=== PATIENT | female | born 1950 | race Caucasian/White ===

== ENCOUNTER 2020-08-14 09:39 | Outpatient (REF) | payer MEDICARE, SELFPAY ==
[2020-08-14 10:26] LABS: MANUAL DIFF FLAG NO
[2020-08-14 10:31] LABS: Basophils Absolute Auto 0.1 X10*3/uL (0.0-0.2); Basophils Percent Auto 0.9 % (0-2); Eosinophils Absolute Auto 0.1 X10*3/uL (0.0-0.4); Eosinophils Percent Auto 1.8 % (0-4); Hematocrit 41.5 % (37-47); Hemoglobin 13.4 g/dl (12.0-16.0); Imm Gran Abs Auto 0.03 X10*3/uL (0.00-0.03); Imm Gran Pct Auto 0.4 % (0.0-0.4); Lymphocytes Absolute Auto 1.9 X10*3/uL (1.2-4.9); Lymphocytes Percent Auto 24.5 % (20-40); Mean Corpuscular HGB Conc 32.3 g/dl (31.0-35.0); Mean Corpuscular Hemoglobin 28.6 pg (27.0-33.0); Mean Corpuscular Volume 88.7 fL (80-98); Mean Platelet Volume 10.2 fL (9.4-12.3); Monocytes Absolute Auto 0.6 X10*3/uL (0.1-1.2); Monocytes Percent Auto 8.2 % (2-11); Neutrophils Absolute Auto 4.9 X10*3/uL (2.0-8.3); Neutrophils Percent Auto 64.2 % (45-73); Platelet Count 275 X10*3/uL (160-400); Red Blood Count 4.68 X10*6/uL (4.20-5.50); Red Cell Distribution Width 13.4 % (11.0-16.0); White Blood Count 7.7 X10*3/uL (4.8-10.8)
[2020-08-14 10:53] LABS: Alanine Aminotransferase 16 U/L (0-31); Albumin Level 4.1 g/dL (3.5-5.0); Alkaline Phosphatase 86 U/L (39-117); Anion Gap 11 (12-20); Aspartate Amino Transferase 15 U/L (5-31); Bilirubin Total 0.7 mg/dL (0.0-1.0); Blood Urea Nitrogen 12 mg/dL (9-16); Calcium 9.1 mg/dL (8.4-10.2); Carbon Dioxide 31 mmol/L (22-29); Chloride 105 mmol/L (96-108); Cholesterol 196 mg/dL; Estimated Glomerular Filt Rate 58; Glucose Fasting 107 mg/dL (60-99); HDL Cholesterol 41 mg/dL; LDL Cholesterol Calculated 118 mg/dl; Potassium 3.7 mmol/l (3.3-5.1); Sodium 143 mmol/L (135-145); Total Protein 6.7 g/dL (6.5-8.0); Triglycerides 189 mg/dL
[2020-08-14 11:18] LABS: Thyroid Stimulating Hormone 8.69 mIU/mL (0.32-4.0); Vitamin D 25-OH Total 27.8 ng/mL (>30)
[2020-08-14 11:35] LABS: Folate 4.6 ng/mL (> or = 4.0); T4 Thyroxine 9.1 ug/dL (4.5-12.0); Vitamin B12 319 pg/mL (200-900)
== END 2020-08-14 09:40 | disposition home or self-care (01) ==
LOC: HO.10HDL 09:39
PROVIDERS: Visit Provider Internal Medicine
DX: E66.9 Obesity, unspecified (principal); Z00.00 Encounter for general adult medical examination without abnormal findings; E78.00 Pure hypercholesterolemia, unspecified; E03.9 Hypothyroidism, unspecified; I10 Essential (primary) hypertension
CPT/HCPCS: 36415; 80053; 80061; 82306; 82607; 82746; 84436; 84443; 85025

== ENCOUNTER 2020-08-15 06:24 | Day surgery (SDC) | payer MEDICARE, SELFPAY ==
[2020-08-09 15:08] VITALS: BMI 76.5
--- NOTE | 2020-08-14 10:43 | P.CONAN_ITS ---
Documented by User: Jami Henriquez 08/14/20 10:45 HPI - Anesthesia Eval Consult details Narrative: 70yo F for Colonoscopy PMFSH Past Medical History Medical History Arthritis Back pain Elevated cholesterol HTN (hypertension) Hypothyroid Increased BMI Thyroid disease Surgical History Surgical History H/O colonoscopy History of bunionectomy History of carpal tunnel release Hx laparoscopic cholecystectomy Hx of shoulder surgery Hx of tubal ligation Social History Social History Alcohol intake: current Alcohol intake frequency: holidays/special occasions only Alcohol type: wine Smoking Status: Former smoker Tobacco Type: Cigarette Smoked in Last 30 Days: No Smoking Quit Date: age 20 Use of substances other than those prescribed or required for medical reasons: No Advance Directives Information Provided: No Recently lost weight without trying: No Meds Allergies Allergy/AdvReac Type Severity Reaction Status Date / Time shellfish derived Allergy Severe HIVES Unverified 06/28/20 15:36 [SHELLFISH DERIVED] Neosporin Allergy Intermediate Rash Unverified 08/09/20 15:24 coffee (Coffea arabica) AdvReac Intermediate Hives Verified 08/15/20 07:13 Home Medications Medication Instructions Recorded Confirmed Type cholecalciferol (vitamin D3) 25 mcg PO DAILY 08/09/20 08/09/20 History [Vitamin D3] hydrochlorothiazide 12.5 mg PO DAILY 08/09/20 08/09/20 History ibuprofen 400 mg PO Q6H PRN 08/09/20 08/09/20 History levothyroxine [Synthroid] 150 mcg PO DAILY 08/09/20 08/09/20 History rosuvastatin [Crestor] 10 mg PO BEDTIME 08/09/20 08/09/20 History Exam Exam Date and Time: August 14, 2020 1043 Height,Weight and Vital Signs: Height 5 ft 6 in Weight 215 kg Pertinent Lab Results Pertinent Lab Results: Laboratory Tests 08/14/20 09:32 WBC 7.7 Hgb 13.4 Hct 41.5 Plt Count 275 Assessment and Plan Assessment Anesthesia Assessment: Chart Reviewed Documented by User: Vanessa Peace 08/15/20 07:25 [facility] Past Medical History Medical History Arthritis Back pain Elevated cholesterol HTN (hypertension) Hypothyroid Increased BMI Thyroid disease Family History Family history of problems with anesthesia: No Surgical History Surgical History H/O colonoscopy History of bunionectomy History of carpal tunnel release Hx laparoscopic cholecystectomy Hx of shoulder surgery Hx of tubal ligation History of Problems with Anesthesia: No Social History Social History Alcohol intake: current Alcohol intake frequency: holidays/special occasions only Alcohol type: wine Smoking Status: Former smoker Tobacco Type: Cigarette Smoked in Last 30 Days: No Smoking Quit Date: age 20 Use of substances other than those prescribed or required for medical reasons: No Advance Directives Information Provided: No Recently lost weight without trying: No Meds Allergies Allergy/AdvReac Type Severity Reaction Status Date / Time shellfish derived Allergy Severe HIVES Unverified 06/28/20 15:36 [SHELLFISH DERIVED] Neosporin Allergy Intermediate Rash Unverified 08/09/20 15:24 coffee (Coffea arabica) AdvReac Intermediate Hives Verified 08/15/20 07:13 Home Medications Medication Instructions Recorded Confirmed Type cholecalciferol (vitamin D3) 25 mcg PO DAILY 08/09/20 08/09/20 History [Vitamin D3] hydrochlorothiazide 12.5 mg PO DAILY 08/09/20 08/09/20 History ibuprofen 400 mg PO Q6H PRN 08/09/20 08/09/20 History levothyroxine [Synthroid] 150 mcg PO DAILY 08/09/20 08/09/20 History rosuvastatin [Crestor] 10 mg PO BEDTIME 08/09/20 08/09/20 History Exam Height,Weight and Vital Signs: Vital Signs Temp Pulse Resp BP Pulse Ox 08/15/20 07:09 97.4 F 89 16 129/79 96 Airway Mallampati Class: II TM Dist: >3cm Neck ROM: Limited (Cervical disc problems. Numbness, weakness upper extremities. Also CTS.) Loose/Missing/Broken Teeth: No (Caps top front- intact) Heart: RRR Lungs: CTAB Assessment and Plan Assessment Anesthesia Assessment: Anesthesia Plan Discussed and Chart Reviewed Final Anesthetic Review NPO: Yes ASA Class: II Final Preanesthetic Review: No Changes in Pt Med Stat, Meds/Allgs Chart Reviewed, Consent Obtained/Reviewed and Anes Risks/Benef Reviewed Patient Risk: Low Procedure Risk: Low Anesthetic Plan Anesthetic Plan: MAC: Disposition: Standard PACU
[2020-08-15 07:09] VITALS: BP 129/79; PULSE 89; RESP 16; TEMP 36.3; O2SAT 96
[2020-08-15 07:16] VITALS: BMI 34.7
[2020-08-15 08:25] VITALS: BP 143/78; PULSE 80; RESP 20; TEMP 36.3; O2SAT 98
--- NOTE | 2020-08-15 08:28 | PM.OP ---
Brief Operative Note Date of procedure: 08/15/20 Pre-op diagnosis: Screening Post-op diagnosis: other (Diverticulosis, Int/Ext Hemorrhoids) Procedure: Colonoscopy to cecum Surgeon: Hollis Pinzon Anesthesia: MAC Estimated blood loss (mL): 0 Pathology: none sent Condition: stable Disposition: PACU
[2020-08-15 08:40] VITALS: BP 146/81; PULSE 74; RESP 16; TEMP 36.6; O2SAT 96
--- NOTE | 2020-08-15 08:43 | OP_ITS ---
SURGEON: Hollis Pinzon MD INDICATIONS: The patient presents for evaluation of colorectal cancer screening and personal history of tubular adenoma of the colon. Full consent has been obtained from her for this, including risks of bleeding and perforation. PREOPERATIVE DIAGNOSIS: POSTOPERATIVE DIAGNOSIS: PROCEDURE PERFORMED: Colonoscopy to cecum. ESTIMATED BLOOD LOSS: COMPLICATIONS: ANESTHESIA: Monitored anesthesia care. ASSISTANTS: SPECIMENS: PREOPERATIVE DIAGNOSES: Colorectal cancer screening and personal history of tubular adenoma of the colon. POSTOPERATIVE DIAGNOSES: Colorectal cancer screening, personal history of tubular adenoma of the colon, diverticulosis, internal and external hemorrhoids. DESCRIPTION OF PROCEDURE: The patient was placed in the left lateral decubitus position. The digital rectal exam revealed no abnormalities. The Olympus video pediatric colonoscope was entered into the rectum and advanced to the cecum with the assistance of abdominal wall pressure. Once in the cecum, I did identify normal-appearing cecal pouch with appendiceal orifice and a normal-appearing ileocecal valve. The entire cecum was well visualized and appeared normal. There was transillumination of light deep in the right lower quadrant. The scope was slowly withdrawn assessing all mucosal surfaces carefully. Preparation was excellent. I did not visualize any sign of polyps, colitis, nor angiodysplasia. There was a mild amount of sigmoid diverticulosis. In the rectum, scope was retroflexed visualizing internal hemorrhoids, but no other pathology. The rectal mucosa appeared normal. The scope was straightened out and withdrawn from the patient. She tolerated the procedure well and was returned to recovery area in stable condition. IMPRESSION: 1. Sigmoid diverticulosis. 2. Internal and external hemorrhoids. PLAN: Given her previous history of an adenoma, I would recommend a followup colonoscopy in 5 years for further screening and surveillance. She will otherwise see me on a p.r.n. basis. MD ELISHA Rasmussen/BRANDON / [id number]
--- NOTE | 2020-08-15 09:03 | HO.POSTANES ---
Post Anesthesia Evaluation Post Anesthesia Evaluation Vital Signs: Vital Signs Temp Pulse Resp BP Pulse Ox 08/15/20 08:40 98 F 74 16 146/81 H 96 08/15/20 08:25 97.3 F 80 20 143/78 H 98 08/15/20 07:09 97.4 F 89 16 129/79 96 Anesthesia: Monitored Mental Status: Awake Pain Control: Satisfactory Nausea/Vomiting: None Hydration: Adequate Anesthesia-Related Issues: No Anes. Related Issues
== END 2020-08-15 09:12 | disposition home or self-care (01) ==
PROVIDERS: PCP Internal Medicine; Visit Provider Internal Medicine
PROC: 0DJD8ZZ Inspection of Lower Intestinal Tract, Via Natural or Artificial Opening Endoscopic (ICD-10-PCS; CPT 45378; principal; 2020-08-15 07:30)
DX: Z12.11 Encounter for screening for malignant neoplasm of colon (principal); Z86.010 Personal history of colon polyps; K57.30 Diverticulosis of large intestine without perforation or abscess without bleeding; K64.8 Other hemorrhoids; K64.4 Residual hemorrhoidal skin tags; I10 Essential (primary) hypertension; E03.9 Hypothyroidism, unspecified; E78.00 Pure hypercholesterolemia, unspecified; Z79.899 Other long term (current) drug therapy; Z90.49 Acquired absence of other specified parts of digestive tract; Z87.891 Personal history of nicotine dependence
CPT/HCPCS: G0105

== ENCOUNTER 2020-09-12 10:23 | Outpatient (REF) | payer MEDICARE, SELFPAY ==
--- NOTE | 2020-09-12 10:26 | MM_ITS ---
EXAMINATION: MM SCREENING DIGITAL BREAST TOMOSYNTHESIS, BILATERAL CLINICAL INFORMATION: Screening. Asymptomatic. The lifetime risk of breast cancer based on the Tyrer-Cuzick Model is 10%. COMPARISON: Mammography: 09/07/2019, 07/27/2018, 06/30/2017 TECHNIQUE: Digital breast tomosynthesis is performed in both the craniocaudal and mediolateral oblique views along with computer-aided detection (CAD). Synthesized 2D images are generated from the tomosynthesis. Additional right MLO view is provided. FINDINGS: There are scattered areas of fibroglandular density (ACR BI-RADS breast composition Category b). There are no significant masses, abnormal calcifications, or other abnormalities. No significant changes from prior studies. MM/MM tomosynthesis screening BI IMPRESSION: No mammographic evidence of malignancy. ASSESSMENT: BI-RADS 1: Negative RECOMMENDATION: Routine annual mammography screening. This patient's information was entered into a reminder system with a target due date for their next mammogram.
== END 2020-09-12 10:24 | disposition home or self-care (01) ==
LOC: HO.MAMMO 10:23
PROVIDERS: PCP Internal Medicine; Visit Provider Internal Medicine
DX: Z12.31 Encounter for screening mammogram for malignant neoplasm of breast (principal)
CPT/HCPCS: 77063; 77067

== ENCOUNTER 2020-12-11 09:16 | Outpatient (REF) | payer MEDICARE, SELFPAY ==
--- NOTE | ~2020-12-11 | XR_ITS ---
EXAMINATION: XR SHOULDER, LEFT CLINICAL INFORMATION: Pain left shoulder. COMPARISON: None. TECHNIQUE: AP external rotation, Grashey, scapular Y, and axillary views of the left shoulder. FINDINGS: There are hypertrophic bony changes along the lateral humeral head and the lateral acromion consistent with arthritic spurring. Mild inferior AC joint spurring is seen as well. There are no loose bodies or bony erosive changes. No acute fracture or dislocation. The soft tissues are normal. XR/XR shoulder LT min 2V IMPRESSION: Degenerative arthritic changes left AC joint and along the lateral humeral head. No acute fracture or dislocation seen.
[2020-12-11 10:15] LABS: Alanine Aminotransferase 19 U/L (0-31); Alkaline Phosphatase 80 U/L (39-117); Anion Gap 12 (12-20); Aspartate Amino Transferase 15 U/L (5-31); Bilirubin Total 0.6 mg/dL (0.0-1.0); Blood Urea Nitrogen 13 mg/dL (9-16); Calcium 9.3 mg/dL (8.4-10.2); Carbon Dioxide 30 mmol/L (22-29); Chloride 106 mmol/L (96-108); Estimated Glomerular Filt Rate 56; Glucose Random 110 mg/dL (60-115); Potassium 3.7 mmol/L (3.3-5.1); Sodium 144 mmol/L (135-145); Total Protein 6.5 g/dL (6.5-8.0)
[2020-12-11 10:34] LABS: Estimated Average Glucose 117 mg/dL; Hemoglobin A1c % 5.7 %
[2020-12-11 10:36] LABS: Free T4 (Free Thyroxine) 1.23 ng/dL (0.71-1.85); Thyroid Stimulating Hormone 0.48 uIU/mL (0.32-4.0)
== END 2020-12-11 09:17 | disposition home or self-care (01) ==
LOC: HO.LAB 09:16
PROVIDERS: PCP Internal Medicine; Visit Provider Internal Medicine
DX: M25.512 Pain in left shoulder (principal); R73.01 Impaired fasting glucose; E03.9 Hypothyroidism, unspecified
CPT/HCPCS: 36415; 73030; 80053; 83036; 84439; 84443

== ENCOUNTER 2021-02-06 10:23 | Outpatient (REF) | payer MEDICARE, SELFPAY ==
--- NOTE | 2021-02-06 10:26 | EMG_ITS ---
This is a 70-year-old woman, who has had a right carpal tunnel release done more than 10 years ago, now comes in with pain, numbness, and tingling predominantly in the left hand and slight pain in the right hand. MEDICATIONS: List of medications is not known. PHYSICAL EXAMINATION: On examination, she is alert and oriented with normal intellectual functions. Her cranial nerves II through XII are normal. Muscle tone and strength are normal in all 4 extremities. Deep tendon reflexes symmetrical. There is no Tinel or Phalen sign. IMPRESSION: Carpal tunnel syndrome. Nerve conduction EMG study: Early carpal tunnel syndrome on the left. Normal nerve conduction on the right. Normal EMG of the left C5-T1 innervated muscles. MD ANNE Gonzales/BRANDON / [id number]
== END 2021-02-06 10:24 | disposition home or self-care (01) ==
LOC: HO.NEURO 10:23
PROVIDERS: Visit Provider Internal Medicine
DX: R20.0 Anesthesia of skin (principal)
CPT/HCPCS: 95885; 95913

== ENCOUNTER 2021-07-23 09:43 | Outpatient (REF) | payer MEDICARE, SELFPAY ==
--- NOTE | ~2021-07-23 | CT_ITS ---
EXAMINATION: CT HEAD WITHOUT CONTRAST CLINICAL INFORMATION: Headache COMPARISON: None TECHNIQUE: Contiguous axial imaging was performed from the skull base to vertex without intravenous administration of contrast. This CT examination was performed using dose optimization techniques as appropriate, variously including the following: *Automated exposure control *Adjustment of mA and/or kV according to patient size (this includes techniques or standardized protocols for targeted exams where dose is matched to indication/reason for exam; i.e. extremities or head) *Use of iterative reconstruction technique DLP: 693 mGy-cm FINDINGS: There is no evidence of acute intracranial hemorrhage or territorial infarction. No abnormal mass effect or midline shift is seen. North to white matter differentiation is well preserved. No extra-axial fluid collections are identified. The ventricles are normal in size. There is no abnormal attenuation within the brain parenchyma. The osseous structures and soft tissues are normal. The mastoid air cells and visualized portions of the paranasal sinuses are well aerated. CT/CT head/brain wo con IMPRESSION: No acute intracranial pathology.
[2021-07-23 11:06] LABS: Basophils Percent Auto 0.5 % (0-2); Eosinophils Absolute Auto 0.2 X10*3/uL (0.0-0.4); Hematocrit 38.2 % (37-47); Hemoglobin 12.2 g/dl (12.0-16.0); Imm Gran Abs Auto 0.04 X10*3/uL (0.00-0.03); Imm Gran Pct Auto 0.5 % (0.0-0.4); Lymphocytes Percent Auto 22.6 % (20-40); MANUAL DIFF FLAG NO; Mean Corpuscular HGB Conc 31.9 g/dl (31.0-35.0); Mean Corpuscular Hemoglobin 28.6 pg (27.0-33.0); Mean Corpuscular Volume 89.5 fL (80-98); Mean Platelet Volume 10.5 fL (9.4-12.3); Monocytes Absolute Auto 0.8 X10*3/uL (0.1-1.2); Monocytes Percent Auto 8.8 % (2-11); Neutrophils Absolute Auto 5.7 X10*3/uL (2.0-8.3); Neutrophils Percent Auto 65.6 % (45-73); Platelet Count 252 X10*3/uL (160-400); Red Blood Count 4.27 X10*6/uL (4.20-5.50); Red Cell Distribution Width 13.6 % (11.0-16.0); White Blood Count 8.7 X10*3/uL (4.8-10.8)
[2021-07-23 11:36] LABS: Estimated Average Glucose 117 mg/dL; Hemoglobin A1c % 5.7 %
[2021-07-23 11:40] LABS: Alanine Aminotransferase 25 U/L (0-31); Alkaline Phosphatase 82 U/L (39-117); Anion Gap 12 (12-20); Aspartate Amino Transferase 20 U/L (5-31); Bilirubin Total 0.7 mg/dL (0.0-1.0); Blood Urea Nitrogen 14 mg/dL (9-16); Calcium 9.6 mg/dL (8.4-10.2); Carbon Dioxide 24 mmol/L (22-29); Chloride 109 mmol/L (96-108); Cholesterol 200 mg/dL; Estimated Glomerular Filt Rate 58; Glucose Random 112 mg/dL (60-115); HDL Cholesterol 40 mg/dL; LDL Cholesterol Calculated 114 mg/dl; Potassium 4.2 mmol/L (3.3-5.1); Sodium 141 mmol/L (135-145); Total Protein 6.4 g/dL (6.5-8.0); Triglycerides 234 mg/dL
[2021-07-23 12:00] LABS: Thyroid Stimulating Hormone 0.59 uIU/mL (0.32-4.0); Vitamin D 25-OH Total 20.8 ng/mL (>30)
[2021-07-23 14:13] LABS: Folate 6.1 ng/mL (> or = 4.0); Vitamin B12 213 pg/mL (200-900)
== END 2021-07-23 09:44 | disposition home or self-care (01) ==
LOC: HO.CT 09:43
PROVIDERS: PCP Internal Medicine; Visit Provider Internal Medicine
DX: G89.29 Other chronic pain (principal); R51.9 Headache, unspecified; R73.01 Impaired fasting glucose; E78.00 Pure hypercholesterolemia, unspecified; I10 Essential (primary) hypertension; E03.9 Hypothyroidism, unspecified
CPT/HCPCS: 36415; 70450; 80053; 80061; 82306; 82607; 82746; 83036; 84439; 84443; 85025

== ENCOUNTER 2021-09-25 11:32 | Outpatient (REF) | payer MEDICARE, SELFPAY ==
--- NOTE | ~2021-09-25 | MM_ITS ---
EXAMINATION: MM SCREENING DIGITAL BREAST TOMOSYNTHESIS, BILATERAL CLINICAL INFORMATION: Screening. Asymptomatic. The lifetime risk of breast cancer based on the Tyrer-Cuzick Model is 4%. COMPARISON: Mammography: 09/12/2020, 09/07/2019, 07/27/2018, 06/30/2017 TECHNIQUE: Digital breast tomosynthesis is performed in both the craniocaudal and mediolateral oblique views along with computer-aided detection (CAD). Synthesized 2D images are generated from the tomosynthesis. FINDINGS: There are scattered areas of fibroglandular density (ACR BI-RADS breast composition Category b). There are no significant masses, abnormal calcifications, or other abnormalities. Incidental intramammary node posterior upper outer right breast again seen. The axilla and skin contours are unremarkable. No significant changes. MM/MM tomosynthesis screening BI IMPRESSION: No mammographic evidence of malignancy. ASSESSMENT: BI-RADS 1: Negative RECOMMENDATION: Routine annual mammography screening. This patient's information was entered into a reminder system with a target due date for their next mammogram.
== END 2021-09-25 11:33 | disposition home or self-care (01) ==
LOC: HO.MAMMO 11:32
PROVIDERS: Visit Provider Internal Medicine
DX: Z12.31 Encounter for screening mammogram for malignant neoplasm of breast (principal)
CPT/HCPCS: 77063; 77067

== ENCOUNTER 2021-12-03 07:16 | Outpatient (REF) | payer MEDICARE, SELFPAY ==
--- NOTE | ~2021-12-03 | MR_ITS ---
MR LUMBAR SPINE WITHOUT IV CONTRAST CLINICAL INFORMATION: Low back pain. Radiculopathy. COMPARISON: None available. TECHNIQUE: MRI of the lumbar spine was obtained using routine sequences without contrast. FINDINGS: There are 5 nonrib-bearing lumbar-type vertebral bodies. There is grade 1 degenerative anterolisthesis of L5 on S1. Lumbar alignment is otherwise maintained. Vertebral body heights are preserved. There is moderate disc volume loss at L1-L2 and L2-L3. There is disc desiccation at all lumbar levels. There is no bone marrow edema. There are no acute fractures. Conus terminates at the L1-L2 level. There is a thickened fatty filum terminale at the L4 through sacral levels measuring up to 3 mm. L1-L2: Shallow right paracentral disc protrusion mildly narrows the central canal. No foraminal stenosis. L2-L3: There is a diffuse annular disc bulge exhibiting a dorsal annular fissure and there is moderate bilateral facet arthropathy and ligamentum flavum thickening. Findings in concert result in moderate central canal stenosis. Right lateral disc osteophyte protrusion compresses the extraforaminal right L2 nerve root. L3-L4: Diffuse annular disc bulge and severe bilateral facet arthropathy and ligamentum flavum thickening. Prominent dorsal epidural fat. Findings in concert result in severe central canal stenosis. L4-L5: There is a diffuse annular disc bulge and there is severe bilateral facet arthropathy and ligamentum flavum thickening. Epidural lipomatosis. Findings in concert result in moderate to severe thecal sac effacement and moderate bilateral foraminal stenosis with mild mass effect on the exiting L4 nerve roots bilaterally. L5-S1: There is grade 1 degenerative anterolisthesis. No central canal stenosis and no foraminal stenosis. MR/MR lumbar spine wo con IMPRESSION: - At L2-L3, multifactorial degenerative changes result in moderate central canal stenosis and a right lateral disc osteophyte protrusion compresses the extraforaminal right L2 nerve root. Dorsal annular fissure at this level. - At L3-L4, multifactorial degenerative changes and epidural lipomatosis result in severe central canal stenosis. Dorsal annular fissure at this level. - At L4-L5, multifactorial degenerative changes and epidural lipomatosis result in moderate to severe thecal sac effacement. There is moderate bilateral foraminal stenosis with mild mass effect on the exiting L4 nerve roots bilaterally at this level. - At L5-S1, there is grade 1 degenerative anterolisthesis in the setting of severe bilateral facet arthropathy. - There is a thickened fatty filum terminale at the L4 through sacral levels measuring up to 3 mm. Conus is normally positioned at the L1-L2 level.
== END 2021-12-03 07:17 | disposition home or self-care (01) ==
LOC: HO.MRI 07:16
PROVIDERS: Visit Provider Internal Medicine
DX: M54.16 Radiculopathy, lumbar region (principal)
CPT/HCPCS: 72148

== ENCOUNTER 2021-12-10 09:34 | Outpatient (REF) | payer MEDICARE, SELFPAY ==
--- NOTE | ~2021-12-10 | MM_ITS ---
EXAMINATION: BONE DENSITOMETRY CLINICAL INDICATION: Other specified disorders of bone density and structure. COMPARISON: Previous BD dated 06/30/2017 and baseline BD dated 07/18/2008. TECHNIQUE: Using a [employer] DXA System (software version: 13.1) manufactured by [email or web address], dual-energy x-ray absorptiometry was performed of the lumbar spine and left hip. The images are of good technical quality. Summary results are attached. FINDINGS: AP SPINE L1-L4: Current: BMD 1.374 g/cm2, Z-score 2.1, T-score 1.6, normal, 3.6% increase from previous, 14.2% increase from baseline (<5% change is not significant). Prior: BMD 1.326 g/cm2. Baseline: BMD 1.203 g/cm2. LEFT FEMUR, NECK: Current: BMD 0.784 g/cm2, Z-score -0.9, T-score -1.8, osteopenia. Prior: BMD 0.974 g/cm2. Baseline: BMD 1.006 g/cm2. LEFT FEMUR, TOTAL: Current: BMD 0.886 g/cm2, Z-score -0.4, T-score -1.0, normal, 15.2% decrease from previous, 13.1% decrease from baseline (<5% change is not significant). Prior: BMD 1.045 g/cm2. Baseline: BMD 1.020 g/cm2. IDENTIFIED RISK FACTORS: Menopause. HISTORY OF FRACTURE: None listed. MEDICATIONS: Vitamin D. MM/XR DEXA axial skeleton IMPRESSION: 1. DIAGNOSIS: Osteopenia based on the lowest T-score value of -1.8 in the femoral neck applying World Health Organization criteria. 2. 10-YEAR FRACTURE RISK PREDICTION, FRAX: Major osteoporotic fracture (clinical spine, forearm, hip or shoulder) 10.1%. Hip fracture 1.7%. 3. Treatment Recommendations: NOF guidelines recommend consideration for treatment in postmenopausal women and men age 50 and older presenting with the following: -A hip or vertebral (clinical or morphometric) fracture. -T-score less than or equal to -2.5 at the femoral neck or spine after appropriate evaluation to exclude secondary causes. -Low bone mass at the hip or spine and a 10-year fracture probability by FRAX of greater than or equal to 3% for hip fracture or greater than or equal to 20% for major osteoporotic fracture based on the [place] adapted WHO algorithm. 4. Other Recommendations: All treatment decisions require clinical judgment and consideration of individual patient factors, including patient preferences, comorbidities, previous drug use, risk factors not captured in the FRAX model (e.g. frailty, falls, vitamin D deficiency, increased bone turnover, interval significant decline in bone density) and possible under or overestimation of fracture risk by FRAX. Additional medical evaluation for secondary cause of low bone mineral density may be appropriate. FUTURE SCAN RECOMMENDATION: People with diagnosed cases of osteoporosis or at high risk for fracture should have regular bone mineral density tests. For patients eligible for Medicare, routine testing is allowed once every 2 years. The testing frequency can be increased to one year for patients who have rapidly progressing disease, those who are receiving or discontinuing medical therapy to restore bone mass, or have additional risk factors.
== END 2021-12-10 09:35 | disposition home or self-care (01) ==
LOC: HO.MAMMO 09:34
PROVIDERS: PCP Internal Medicine; Visit Provider Internal Medicine
DX: M85.80 Other specified disorders of bone density and structure, unspecified site (principal); Z78.0 Asymptomatic menopausal state; Z79.899 Other long term (current) drug therapy
CPT/HCPCS: 77080

== ENCOUNTER 2022-03-31 11:00 | Outpatient (RCR) | payer MEDICARE, SELFPAY ==
[2022-02-17 11:09] VITALS: BP 177/74; PULSE 78; O2SAT 96
== END 2022-03-31 13:05 | disposition home or self-care (01) ==
LOC: HO.PT 11:00
PROVIDERS: PCP Internal Medicine; Visit Provider Neurological Surgery
DX: M54.50 Low back pain, unspecified (principal)
CPT/HCPCS: 97110; 97140; 97162; 97530

== ENCOUNTER 2022-06-03 09:21 | Outpatient (REF) | payer MEDICARE, SELFPAY ==
[2022-06-03 10:01] LABS: MANUAL DIFF FLAG NO
[2022-06-03 10:53] LABS: Basophils Absolute Auto 0.1 X10*3/uL (0.0-0.2); Basophils Percent Auto 0.6 % (0-2); Eosinophils Absolute Auto 0.2 X10*3/uL (0.0-0.4); Eosinophils Percent Auto 2.2 % (0-4); Hematocrit 40.2 % (37.0-47.0); Hemoglobin 12.9 g/dl (12.0-16.0); Imm Gran Abs Auto 0.03 X10*3/uL (0.00-0.03); Imm Gran Pct Auto 0.4 % (0.0-0.4); Lymphocytes Absolute Auto 1.8 X10*3/uL (1.2-4.9); Lymphocytes Percent Auto 23.6 % (20-40); Mean Corpuscular HGB Conc 32.1 g/dl (31.0-35.0); Mean Corpuscular Volume 87.2 fL (80.0-98.0); Mean Platelet Volume 10.4 fL (9.4-12.3); Monocytes Absolute Auto 0.7 X10*3/uL (0.1-1.2); Neutrophils Percent Auto 64.2 % (45-73); Platelet Count 261 X10*3/uL (160-400); Red Blood Count 4.61 X10*6/uL (4.20-5.50); Red Cell Distribution Width 13.1 % (11.0-16.0); White Blood Count 7.8 X10*3/uL (4.8-10.8)
[2022-06-03 10:58] LABS: Estimated Average Glucose 120 mg/dL; Hemoglobin A1c % 5.8 %
[2022-06-03 11:23] LABS: Alanine Aminotransferase 18 U/L (0-31); Alkaline Phosphatase 90 U/L (39-117); Anion Gap 13 (12-20); Aspartate Amino Transferase 15 U/L (5-31); Bilirubin Total 0.7 mg/dL (0.0-1.0); Blood Urea Nitrogen 12 mg/dL (9-16); Calcium 9.6 mg/dL (8.4-10.2); Carbon Dioxide 27 mmol/L (22-29); Chloride 107 mmol/L (96-108); Cholesterol 178 mg/dL; Estimated Glomerular Filt Rate > 60; Glucose Random 112 mg/dL (60-115); HDL Cholesterol 39 mg/dL; LDL Cholesterol Calculated 96 mg/dl; Potassium 4.4 mmol/L (3.3-5.1); Sodium 143 mmol/L (135-145); Total Protein 6.6 g/dL (6.5-8.0); Triglycerides 219 mg/dL
[2022-06-03 11:33] LABS: Free T4 (Free Thyroxine) 1.48 ng/dL (0.71-1.85); Thyroid Stimulating Hormone 0.05 uIU/mL (0.32-4.0); Vitamin D 25-OH Total 20.6 ng/mL (>30)
[2022-06-03 11:46] LABS: Folate 10.1 ng/mL (> or = 4.0); Vitamin B12 237 pg/mL (200-900)
== END 2022-06-03 09:22 | disposition home or self-care (01) ==
LOC: HO.LAB 09:21
PROVIDERS: PCP Internal Medicine; Visit Provider Internal Medicine
DX: E78.00 Pure hypercholesterolemia, unspecified (principal)
CPT/HCPCS: 36415; 80053; 80061; 82306; 82607; 82746; 83036; 84439; 84443; 85025

== ENCOUNTER → 2022-07-22 09:54 | Outpatient (BNVA) | payer MEDICARE, SELFPAY | PROVIDERS: PCP Internal Medicine; Visit Provider Orthopaedic Surgery | DX: M65.311 Trigger thumb, right thumb (principal); G56.02 Carpal tunnel syndrome, left upper limb | CPT/HCPCS: 99202 ==

== ENCOUNTER 2022-08-29 11:27 | Outpatient (REF) | payer MEDICARE, SELFPAY ==
[2022-08-29 12:56] LABS: Estimated Average Glucose 120 mg/dL; Hemoglobin A1c % 5.8 %
[2022-08-29 13:56] LABS: Alanine Aminotransferase 18 U/L (0-31); Albumin Level 3.9 g/dL (3.5-5.0); Alkaline Phosphatase 95 U/L (39-117); Anion Gap 11 (12-20); Aspartate Amino Transferase 16 U/L (5-31); Bilirubin Total 0.5 mg/dL (0.0-1.0); Blood Urea Nitrogen 11 mg/dL (9-16); Carbon Dioxide 28 mmol/L (22-29); Chloride 108 mmol/L (96-108); Estimated Glomerular Filt Rate 56; Free T4 (Free Thyroxine) 1.35 ng/dL (0.71-1.85); Glucose Random 105 mg/dL (60-115); Potassium 4.3 mmol/L (3.3-5.1); Sodium 143 mmol/L (135-145); Thyroid Stimulating Hormone 0.01 uIU/mL (0.32-4.0); Total Protein 6.4 g/dL (6.5-8.0)
== END 2022-08-29 11:28 | disposition home or self-care (01) ==
LOC: HO.LAB 11:27
PROVIDERS: PCP Internal Medicine; Visit Provider Internal Medicine
DX: E03.9 Hypothyroidism, unspecified (principal); R73.01 Impaired fasting glucose; I10 Essential (primary) hypertension
CPT/HCPCS: 36415; 80053; 83036; 84439; 84443

== ENCOUNTER 2022-09-29 09:55 | Day surgery (SDC) | payer MEDICARE, SELFPAY ==
[2022-09-29 10:05] VITALS: BMI 34.2
--- NOTE | 2022-09-29 11:27 | MHC.SHP ---
Pre-Procedural Eval Section A Date of Service: 09/29/22 The patient is an INPATIENT: No Changes since office visit: No Cold of Flu in the past 2 weeks, No New Medical Problems, No Changes in Medication and No Patient answered all questions The History & Physical has been completed within 30 days and I have reviewed it.: Yes Section B Chief Complaint: Trigger thumb, right thumb Allergies: Allergies Allergy/AdvReac Type Severity Reaction Status Date / Time shellfish derived Allergy Severe HIVES Verified 07/22/22 09:59 [SHELLFISH DERIVED] Neosporin Allergy Intermediate Rash Verified 07/22/22 09:59 adhesive Allergy Unknown Rash Verified 07/22/22 09:59 coffee (Coffea arabica) AdvReac Intermediate Hives Verified 07/22/22 09:59 Plan I have reviewed the history and physical and performed a pertinent physical examination on my patient. No changes have occurred unless specified. Time Spent With Patient Time: Total time managing care of this patient today ____ minutes.
--- NOTE | 2022-09-29 11:28 | W.PM.OPN ---
Operative Note Operative Note Date of Service: 09/29/22 Narrative: Operative Note Preop diagnosis: 1. Right thumb Trigger finger Postop diagnosis: 1. Right thumb Trigger finger Procedure: 1. Right thumb A1 zach release Surgeon: Silke Obregon MD Anesthesia: local block using 1% lidocaine with epinephrine Findings: No locking or catching after A1 zach release EBL: Less than 5 mL Tourniquet time: None Specimens: None Complications: None Disposition: Brought to recovery room in stable condition Plan: Follow-up for 10-14 days for wound check and suture removal Indications: The patient is a 72 years old, with a right thumb trigger finger that has been unresponsive to nonoperative management. The risks and benefits of operative treatment including but not limited to risk of damage to blood vessels, nerves, tendons, infection, persistent pain, persistent symptoms, recurrence or possible need for additional surgery were discussed with the patient and the patient wishes to proceed with surgery. Procedure: Once consent was obtained a local block was performed in the preop area using a combination of 1% lidocaine with epinephrine. The patient was then brought back to the operating suite and placed on the operative table in supine position. A tourniquet was applied to the proximal aspect of the right upper extremity and the limb was prepped and draped in a standard surgical fashion. Once assured that we had a good block, a 1.5 cm oblique incision was made centered over the A1 zach of the right thumb . The incision was made through the skin to the subcutaneous tissues using a #15 blade. Careful dissection was made down to the level of the A1 zach using tenotomy scissors, with care being taken to protect the nearby neurovascular structures. A longitudinal incision was made in the A1 zach 1st using a #15 blade, then using tenotomy scissors under direct visualization. The A1 zach was noted to be thickened. Following our A1 zach release, we no longer saw any locking or catching of the digit with flexion and extension. Once satisfied with our A1 zach release the wound was copiously irrigated with normal saline and hemostasis was obtained with a brief period of local pressure. The skin edges were reapproximated with some 5.0 nylon suture material and a sterile dressing was applied. The patient appears to have tolerated the procedure well and with no complications. All digits were well vascularized at the conclusion of the case.
[2022-09-29 11:55] VITALS: BP 139/63; PULSE 76; RESP 16; TEMP 36.2; O2SAT 96
== END 2022-09-29 12:11 | disposition home or self-care (01) ==
PROVIDERS: PCP Internal Medicine; Visit Provider Orthopaedic Surgery
PROC: (CPT 26055; principal; 2022-09-29 11:20)
DX: M65.311 Trigger thumb, right thumb (principal); M25.641 Stiffness of right hand, not elsewhere classified; M79.644 Pain in right finger(s); M19.90 Unspecified osteoarthritis, unspecified site; I10 Essential (primary) hypertension; I73.9 Peripheral vascular disease, unspecified; E55.9 Vitamin D deficiency, unspecified; E66.9 Obesity, unspecified; Z68.34 Body mass index [BMI] 34.0-34.9, adult; Z79.1 Long term (current) use of non-steroidal anti-inflammatories (NSAID); Z79.899 Other long term (current) drug therapy; Z88.1 Allergy status to other antibiotic agents; Z91.040 Latex allergy status; Z87.891 Personal history of nicotine dependence
CPT/HCPCS: 26055; J0171; J2795

== ENCOUNTER 2022-10-02 10:36 | Outpatient (REF) | payer MEDICARE, SELFPAY | END 2022-10-02 10:37 | disposition home or self-care (01) | LOC: HO.MAMMO 10:36 | PROVIDERS: PCP Internal Medicine; Visit Provider Internal Medicine | DX: Z12.31 Encounter for screening mammogram for malignant neoplasm of breast (principal) | CPT/HCPCS: 77063; 77067 ==

== ENCOUNTER → 2022-10-14 09:42 | Outpatient (BNVA) | payer MEDICARE, SELFPAY | PROVIDERS: PCP Internal Medicine; Visit Provider Orthopaedic Surgery | DX: Z13.89 Encounter for screening for other disorder (principal) ==

== ENCOUNTER 2022-10-15 12:19 | Outpatient (REF) | payer MEDICARE, SELFPAY ==
[2022-10-15 14:05] LABS: Free T4 (Free Thyroxine) 1.02 ng/dL (0.71-1.85); Thyroid Stimulating Hormone 0.29 uIU/mL (0.32-4.0)
== END 2022-10-15 12:20 | disposition home or self-care (01) ==
LOC: HO.LAB 12:19
PROVIDERS: PCP Internal Medicine; Visit Provider Internal Medicine
DX: E03.9 Hypothyroidism, unspecified (principal)
CPT/HCPCS: 36415; 84439; 84443

== ENCOUNTER 2022-11-26 14:34 | Outpatient (REF) | payer MEDICARE, SELFPAY ==
--- NOTE | ~2022-11-26 | XR_ITS ---
EXAMINATION: XR LUMBOSACRAL SPINE WITH OBLIQUES CLINICAL INFORMATION: Status post L3/L4 and L4/L5 decompression COMPARISON: None TECHNIQUE: 7 views of the lumbar spine FINDINGS: 5 lumbar type vertebral bodies are present. Vertebral body heights and alignment are preserved. No subluxation between flexion and extension. Right upper quadrant cholecystectomy clips are noted. XR/XR lumbar spine 6V w bending IMPRESSION: Unremarkable examination. No subluxation between flexion and extension.
== END 2022-11-26 14:35 | disposition home or self-care (01) ==
LOC: HO.XRAY 14:34
PROVIDERS: PCP Internal Medicine; Visit Provider Physician Assistant
DX: M54.50 Low back pain, unspecified (principal)
CPT/HCPCS: 72114

== ENCOUNTER 2023-01-12 10:00 | Outpatient (RCR) | payer MEDICARE, SELFPAY ==
[2023-01-02 11:10] VITALS: BP 148/66; PULSE 70
== END 2023-02-06 10:39 | disposition home or self-care (01) ==
LOC: HO.PT 10:00
PROVIDERS: PCP Internal Medicine; Visit Provider Neurological Surgery
DX: M54.59 Other low back pain (principal)
CPT/HCPCS: 97110; 97140; 97161

== ENCOUNTER 2023-01-14 13:23 | Outpatient (REF) | payer MEDICARE, SELFPAY ==
--- NOTE | ~2023-01-14 | FL_ITS ---
PROCEDURE: XR FL WITH IMAGES SACROILIAC JOINT, LEFT CT FL-GUIDED SACROILIAC JOINT STEROID INJECTION, LEFT CLINICAL INFORMATION: Left sacroiliac joint pain. COMPARISON: Lumbar spine study of 11/26/[address] lumbar spine of 10/02/2016. TECHNIQUE: Fluoroscopy Supervised By: Dr. Robertson. Fluoroscopy Time: 6.7 minutes. DAP: 3693 cGycm2. Images: 4. This CT examination was performed using dose optimization techniques as appropriate, variously including the following: *Automated exposure control. *Adjustment of mA and/or kV according to patient size (this includes techniques or standardized protocols for targeted exams where dose is matched to indication/reason for exam; i.e. extremities or head). *Use of iterative reconstruction technique. CT DLP: 377 mGy-cm FINDINGS: Informed consent was obtained from the patient prior to the procedure. During this process, the procedure and potential alternatives were explained, along with the intended outcome and benefits. The risks of the procedure, as well as the risk of not doing the procedure, were discussed. The patient was given the opportunity to ask questions regarding the procedure and appeared competent to make medical decisions. A signed consent form which documents this discussion was placed in the medical record. Using sterile technique and fluoroscopic guidance with the fluoroscopy tube angled to open the left sacroiliac joint, a 22-gauge spinal needle was then directed down onto the inferior sacroiliac joint with ventrally injection showing a small amount of contrast within the sacroiliac joint. However, only approximately half milliliter of mixture of 2 mL of bupivacaine mixed with 80 mg of Depo-Medrol could be administered before access to the joint was lost. The patient was then brought to CT fluoroscopy were a 22-gauge spinal needle was directed into the left sacroiliac joint and a mixture of 2 mL of a bupivacaine with 80 mg of Depo-Medrol was administered. Patient tolerated the procedure without difficulty and stated that her usual sacroiliac joint pain was no longer present while doing maneuvers which would regularly cause her pain. FL/FL guidance in treatment room IMPRESSION: Successful left sacroiliac joint injection with bupivacaine and steroids as described.
[2023-01-14] MEDS: methylPREDNISolone acetate 80 MG VIAL INTRAARTIC (17:04)
[2023-01-14] MEDS: Lidocaine HCl 1 % 20 ML VIAL SUBCUT (17:04)
[2023-01-14] MEDS: BUPivacaine MPF 0.25 % 30 ML VIAL EPIDURAL (17:05)
== END 2023-01-14 13:24 | disposition home or self-care (01) ==
LOC: HO.XRAY 13:23
PROVIDERS: PCP Internal Medicine; Visit Provider Neurological Surgery
DX: M53.3 Sacrococcygeal disorders, not elsewhere classified (principal)
CPT/HCPCS: 27096; J1040; Q9967

== ENCOUNTER 2023-01-26 10:46 | Outpatient (REF) | payer MEDICARE, SELFPAY ==
[2023-01-26 12:14] LABS: Alanine Aminotransferase 19 U/L (0-31); Albumin Level 4.1 g/dL (3.5-5.0); Alkaline Phosphatase 95 U/L (39-117); Anion Gap 12 (12-20); Aspartate Amino Transferase 14 U/L (5-31); Bilirubin Total 0.7 mg/dL (0.0-1.0); Blood Urea Nitrogen 24 mg/dL (9-16); Calcium 9.8 mg/dL (8.4-10.2); Carbon Dioxide 24 mmol/L (22-29); Chloride 108 mmol/L (96-108); Estimated Glomerular Filt Rate > 60; Glucose Random 105 mg/dL (60-115); Potassium 3.9 mmol/L (3.3-5.1); Sodium 140 mmol/L (135-145); Total Protein 6.7 g/dL (6.5-8.0)
[2023-01-26 12:21] LABS: Estimated Average Glucose 126 mg/dL
[2023-01-26 12:31] LABS: Free T4 (Free Thyroxine) 1.08 ng/dL (0.71-1.85); Thyroid Stimulating Hormone 0.52 uIU/mL (0.32-4.0)
== END 2023-01-26 10:47 | disposition home or self-care (01) ==
LOC: HO.LAB 10:46
PROVIDERS: PCP Internal Medicine; Visit Provider Internal Medicine
DX: I10 Essential (primary) hypertension (principal); R73.01 Impaired fasting glucose
CPT/HCPCS: 36415; 80053; 83036; 84439; 84443

== ENCOUNTER 2023-02-19 19:35 | Outpatient (REF) | payer MEDICARE, SELFPAY ==
--- NOTE | ~2023-02-19 | MR_ITS ---
EXAMINATION: MR LUMBAR SPINE WITHOUT CONTRAST CLINICAL INFORMATION: Other intervertebral disc degeneration, lumbar region. COMPARISON: Lumbar spine MRI 12/03/2021. TECHNIQUE: MRI of the lumbar spine was obtained using routine sequences without contrast. FINDINGS: The lumbar vertebral bodies maintain normal heights. There is minimal retrolisthesis of L2 on L3. There is mild multilevel intervertebral disc height loss. No bone marrow edema is seen. The distal spinal cord appears normal. The conus medullaris terminates normally at the L1-L2 level. There is a fatty filum terminale. The extraspinal soft tissues are within normal limits. SPINAL LEVELS: T12-L1: Shallow right subarticular protrusion. No spinal canal or neural foraminal stenosis. L1-L2: Right subarticular protrusion. No spinal canal or neural foraminal stenosis. L2-L3: Disc bulging with facet arthropathy and epidural lipomatosis resulting in mild to moderate spinal canal stenosis with partial effacement of intrathecal CSF. Right foraminal protrusion compresses the exiting right L2 nerve root without significant change. L3-L4: Posterior decompression. Disc bulging with moderate facet arthropathy. No spinal canal stenosis. Mild right more than left neural foraminal stenosis without foraminal nerve root compression. L4-L5: Posterior decompression. Disc bulging with moderate facet arthropathy. No spinal canal stenosis. Bulging disc asymmetric to the left in combination with facet arthropathy results in progressive moderate to severe left neural foraminal stenosis and mild to moderate right neural foraminal stenosis. Mild compression of the exiting left L4 nerve root, progressed from prior. L5-S1: Disc bulging with severe facet arthropathy. No spinal canal stenosis. No significant neural foraminal stenosis. MR/MR lumbar spine wo con IMPRESSION: 1. At L2-L3 there is mild to moderate spinal canal stenosis and compression of the exiting right L2 nerve root without significant change. 2. At L4-L5 there is progressive moderate to severe left neural foraminal stenosis with mild compression of the exiting left L4 nerve root. 3. At L3-L4 there is posterior decompression without spinal canal stenosis or foraminal nerve root compression.
== END 2023-02-19 19:36 | disposition home or self-care (01) ==
LOC: HO.MRI 19:35
PROVIDERS: PCP Internal Medicine; Visit Provider Physician Assistant
DX: M54.50 Low back pain, unspecified (principal); M51.36 Other intervertebral disc degeneration, lumbar region
CPT/HCPCS: 72148

== ENCOUNTER 2023-05-01 11:20 | Outpatient (AMB) | payer MEDICARE, SELFPAY ==
--- NOTE | 2023-05-01 11:21 | MHC.PC.OV ---
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 Accompanied by: Self / Same As Patient Allergies shellfish derived [SHELLFISH DERIVED] Allergy (Severe, Verified 05/01/23 11:22) HIVES bacitracin [From Neosporin ([id number])] Allergy (Intermediate, Verified 05/01/23 11:22) Rash neomycin [From Neosporin ([id number])] Allergy (Intermediate, Verified 05/01/23 11:22) Rash polymyxin B [From Neosporin ([id number])] Allergy (Intermediate, Verified 05/01/23 11:22) Rash adhesive Allergy (Unknown, Verified 05/01/23 11:22) Rash coffee (Coffea arabica) Adverse Reaction (Intermediate, Verified 05/01/23 11:22) Hives Medication List - Last Reconciled 05/01/23 by Renuka Leon MD amitriptyline 10 mg PO BEDTIME 90 days cholecalciferol (vitamin D3) (Vitamin D3) 25 mcg PO DAILY ibuprofen 400 mg PO Q6H PRN levothyroxine Take 1 tablet every day except for Thursday losartan 100 mg PO DAILY 90 days multivitamin 1 tab PO DAILY rosuvastatin (Crestor) 10 mg PO BEDTIME semaglutide (Rybelsus) 3 mg PO DAILY 30 days tramadol 50 mg PO BEDTIME Tobacco use date assessed: 11/26/22 Fall risk assessment: No Falls in past year Last assessed Fall Risk: 05/01/23 Dental Screening Dental Screen Date: 05/01/23 Did you have a dental visit in the last 12 months?: Yes Did you have a dental problem in the last 6 months where you did not have access to dental care?: No Was dental information given to patient?: Patient has dentist HPI LBP HPI Details 72-year-old obese female with hypothyroidism hypertension hypercholesterolemia and impaired glucose tolerance. Patient also has lumbar degenerative disc disease last seen in January 2023. Patient is here for follow-up colonoscopy is up-to-date mammogram bone density all up-to-date. With the low back pain patient had an MRI done showing L2-L3 mild to moderate spinal canal stenosis and compression of the exiting L2 right nerve root L4-L5 progressive moderate to severe left neural foraminal stenosis with mild compression of the exiting left L4 nerve L3-L4 posterior decompression without spinal canal stenosis or foraminal nerve root compression this was done in February 2023 [facility] Medical History Elevated cholesterol Fatty liver HTN (hypertension) Hypothyroid Lumbar degenerative disc disease Obesity (BMI 30-39.9) Osteoarthritis Peripheral vascular disease Vitamin D deficiency Surgical History H/O colonoscopy History of bunionectomy History of carpal tunnel release History of foot surgery Hx laparoscopic cholecystectomy Hx of shoulder surgery Hx of tubal ligation Family History Father No problems noted. Mother Breast cancer Hypertension CVD (cardiovascular disease) Stroke Bladder cancer Maternal Aunt Breast cancer Maternal Grandmother Breast cancer Brother No problems noted. Sister No problems noted. Daughter No problems noted. Daughter No problems noted. 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 Hollis Pierson, Vida Reyna, Nick Hicks and colleagues, with an educational cisco from [employer]. Physical exam (Primary Care) Vital Signs: Last Vital Signs Pulse 82 05/01/23 11:22 BP 112/68 05/01/23 11:22 Pulse Ox 96 05/01/23 11:22 BMI result Body Mass Index 35.8 Tobacco/Smoking Status: Tobacco use Status Tobacco use date assessed 11/26/22 05/01/23 11:24 Patient Tobacco Use Status Former Tobacco user 05/01/23 11:24 Tobacco use type 06/02/22 10:20 e-Cigarette/Vaping Use Never Used 05/01/23 11:24 Thrive Assessment: Date of Thrive Assessment Date Thrive assessed 10/22/22 05/01/23 11:24 Const General: alert; No acute distress Eyes Conjunctivae: conjunctivae normal Resp Auscultation: clear to auscultation bilaterally Cardio Rate: regular rate Rhythm: regular rhythm GI Inspection: Yes normal to inspection Extrem General: Yes normal to inspection and No edema Results AMB Hemoglobin A1c AMB Hemoglobin A1c 5.3 % Last Edit by Bipin Mccord CMA on 05/01/23 11:33 Results Reviewed Results Reviewed: Laboratory Last Values Hgb A1c (Clinic) 5.3 % (4.0-6.0) 05/01/23 11:33 Assessment and Plan Assessment & Plan (1) Lumbar degenerative disc disease: Comment: 08/04/2022 L3-4, L4-5 decompressive laminectomy and medial facetectomy by Dr. Lundberg. MRI February 2023MRI done showing L2-L3 mild to moderate spinal canal stenosis and compression of the exiting L2 right nerve root L4-L5 progressive moderate to severe left neural foraminal stenosis with mild compression of the exiting left L4 nerve L3-L4 posterior decompression without spinal canal stenosis or foraminal nerve root compression Code(s): M51.36 - Other intervertebral disc degeneration, lumbar region Plan: MRI revealing spinal stenosis- seen Neurosurgeon= SI belt to use , advised pain mgmt. or back brace/belt. (2) Impaired fasting glucose: Code(s): R73.01 - Impaired fasting glucose Plan: Decrease the amount of carbohydrate intake, pasta, bread, rice and potatoes are all sugar and that is aside from all the sweet stuff, remember that fruits are good but they are Sweet also. (3) Elevated cholesterol: Code(s): E78.00 - Pure hypercholesterolemia, unspecified Plan: Avoid fried foods, chicken skin, eggs, butter margarine, pastries and meat. Be it pork or beef they have a lot of cholesterol LDL goal of less than 130 and triglyceride of less than 150 last blood work was May 2022 patient is on rosuvastatin 10 mg once a day (4) HTN (hypertension): Code(s): I10 - Essential (primary) hypertension Qualifiers: Hypertension type: essential hypertension Qualified Code(s): I10 - Essential (primary) hypertension Plan: Continue with blood pressure medication. Decrease salt intake and exercise patient is on losartan 100 mg once a day (5) Obesity (BMI 30-39.9): Code(s): E66.9 - Obesity, unspecified Plan: Diet and exercise (6) Hypothyroid: Code(s): E03.9 - Hypothyroidism, unspecified Qualifiers: Hypothyroidism type: acquired Qualified Code(s): E03.9 - Hypothyroidism, unspecified Plan: Continue with the thyroid medication Orders: Orders Vitamin B12 and Folate 3 Months E78.00 - Pure hypercholesterolemia, unspecified Comprehensive Met. Panel 3 Months E78.00 - Pure hypercholesterolemia, unspecified Hemoglobin A1c 3 Months E78.00 - Pure hypercholesterolemia, unspecified Lipid Panel 3 Months E78.00 - Pure hypercholesterolemia, unspecified Free T4 (Free Thyroxine) 3 Months E78.00 - Pure hypercholesterolemia, unspecified Thyroid Stimulating Hormone 3 Months E78.00 - Pure hypercholesterolemia, unspecified Vitamin D 25-OH Total 3 Months E78.00 - Pure hypercholesterolemia, unspecified Complete Blood Count Auto Diff 3 Months E78.00 - Pure hypercholesterolemia, unspecified AMB Hemoglobin A1c Today R73.01 - Impaired fasting glucose, Z13.9 - Encounter for screening, unspecified Medications: New semaglutide (Rybelsus) 3 mg PO DAILY 30 tabs 1RF 30 days E66.9 - Obesity, unspecified Coding Level of Care Code Est Pt Level 4 (83566) Diagnoses Lumbar degenerative disc disease M51.36 Impaired fasting glucose R73.01 Elevated cholesterol E78.00 HTN (hypertension) I10 Hypertension type: essential hypertension Obesity (BMI 30-39.9) E66.9 Hypothyroid E03.9 Hypothyroidism type: acquired
[2023-05-01 11:22] VITALS: BP 112/68; PULSE 82; O2SAT 96; BMI 35.8
== END 2023-05-01 12:12 | disposition home or self-care (01) ==
PROVIDERS: Visit Provider Internal Medicine
DX: M51.36 Other intervertebral disc degeneration, lumbar region (principal); E66.9 Obesity, unspecified; I10 Essential (primary) hypertension; Z68.35 Body mass index [BMI] 35.0-35.9, adult; R73.01 Impaired fasting glucose; E78.00 Pure hypercholesterolemia, unspecified; E03.9 Hypothyroidism, unspecified
CPT/HCPCS: 83036; 99214

== ENCOUNTER 2023-07-15 10:04 | Outpatient (REF) | payer MEDICARE, SELFPAY ==
[2023-07-15 10:24] LABS: MANUAL DIFF FLAG NO
[2023-07-15 11:43] LABS: Basophils Absolute Auto 0.1 X10*3/uL (0.0-0.2); Basophils Percent Auto 0.9 % (0-2); Eosinophils Absolute Auto 0.2 X10*3/uL (0.0-0.4); Eosinophils Percent Auto 2.6 % (0-4); Hemoglobin 13.1 g/dl (12.0-16.0); Imm Gran Abs Auto 0.07 X10*3/uL (0.00-0.03); Imm Gran Pct Auto 0.9 % (0.0-0.4); Lymphocytes Absolute Auto 2.2 X10*3/uL (1.2-4.9); Lymphocytes Percent Auto 27.5 % (20-40); Mean Corpuscular Hemoglobin 28.9 pg (27.0-33.0); Mean Corpuscular Volume 90.3 fL (80.0-98.0); Mean Platelet Volume 10.3 fL (9.4-12.3); Monocytes Absolute Auto 0.7 X10*3/uL (0.1-1.2); Monocytes Percent Auto 8.5 % (2-11); Neutrophils Absolute Auto 4.9 x10*3/uL (2.0-8.3); Neutrophils Percent Auto 59.6 % (45-73); Platelet Count 284 X10*3/uL (160-400); Red Blood Count 4.54 X10*6/uL (4.20-5.50); Red Cell Distribution Width 13.6 % (11.0-16.0); White Blood Count 8.1 X10*3/uL (4.8-10.8)
[2023-07-15 11:49] LABS: Estimated Average Glucose 120 mg/dL; Hemoglobin A1c % 5.8 % (<6.0)
[2023-07-15 12:24] LABS: Alanine Aminotransferase 17 U/L (0-31); Alkaline Phosphatase 88 U/L (39-117); Anion Gap 12 (12-20); Aspartate Amino Transferase 17 U/L (5-31); Bilirubin Total 0.5 mg/dL (0.0-1.0); Blood Urea Nitrogen 11 mg/dL (9-16); Calcium 9.7 mg/dL (8.4-10.2); Carbon Dioxide 26 mmol/L (22-29); Chloride 108 mmol/L (96-108); Cholesterol 209 mg/dL (<200); Estimated Glomerular Filt Rate > 60; Free T4 (Free Thyroxine) 1.09 ng/dL (0.71-1.85); Glucose Random 103 mg/dL (60-115); HDL Cholesterol 38 mg/dL (>40); LDL Cholesterol Calculated 119 mg/dL (<100); Potassium 3.6 mmol/L (3.3-5.1); Sodium 142 mmol/L (135-145); Thyroid Stimulating Hormone 6.93 uIU/mL (0.32-4.0); Total Protein 6.8 g/dL (6.5-8.0); Triglycerides 262 mg/dL (<150); Vitamin D 25-OH Total 29.9 ng/mL (>30)
[2023-07-15 12:39] LABS: Folate 6.4 ng/mL (> or = 4.0); Vitamin B12 361 pg/mL (200-900)
== END 2023-07-15 10:05 | disposition home or self-care (01) ==
LOC: HO.LAB 10:04
PROVIDERS: PCP Internal Medicine; Visit Provider Internal Medicine
DX: E78.00 Pure hypercholesterolemia, unspecified (principal); M85.80 Other specified disorders of bone density and structure, unspecified site; E55.9 Vitamin D deficiency, unspecified
CPT/HCPCS: 36415; 80053; 80061; 82306; 82607; 82746; 83036; 84439; 84443; 85025

== ENCOUNTER 2023-07-20 08:49 | Outpatient (AMB) | payer MEDICARE, SELFPAY ==
[2023-07-20 08:51] VITALS: BP 140/82; PULSE 75; O2SAT 94; BMI 35.0
--- NOTE | 2023-07-20 08:51 | MHC.PC.OV ---
Vital Signs 07/20/23 08:51 Height 5 ft 6 in Weight 217 lb BMI 35.0 BP 140/82 H Blood Pressure Location Lt brachial Position Sitting Pulse 75 Pulse Source Pulse Oximeter Pulse Oximetry (%) 94 Oxygen Delivery Method Room Air Intake Visit Reasons: PE Allergies shellfish derived [SHELLFISH DERIVED] Allergy (Severe, Verified 07/20/23 08:51) HIVES bacitracin [From Neosporin ([id number])] Allergy (Intermediate, Verified 07/20/23 08:51) Rash neomycin [From Neosporin ([id number])] Allergy (Intermediate, Verified 07/20/23 08:51) Rash polymyxin B [From Neosporin ([id number])] Allergy (Intermediate, Verified 07/20/23 08:51) Rash adhesive Allergy (Unknown, Verified 07/20/23 08:51) Rash coffee (Coffea arabica) Adverse Reaction (Intermediate, Verified 07/20/23 08:51) Hives Medication List - Last Reconciled 07/20/23 by Renuka Leon MD cholecalciferol (vitamin D3) (Vitamin D3) 25 mcg PO DAILY diphenhydramine-acetaminophen 25-500 mg-mg/mL mL PO .QD prn ibuprofen 400 mg PO Q6H PRN levothyroxine Take 1 tablet every day except for Thursday losartan 100 mg PO DAILY 90 days multivitamin 1 tab PO DAILY rosuvastatin (Crestor) 10 mg PO BEDTIME tramadol 50 mg PO BEDTIME Tobacco use date assessed: 11/26/22 Fall risk assessment: No Falls in past year Last assessed Fall Risk: 07/20/23 Dental Screening Dental Screen Date: 07/20/23 Did you have a dental visit in the last 12 months?: Yes Did you have a dental problem in the last 6 months where you did not have access to dental care?: No Was dental information given to patient?: Patient has dentist HPI PE HPI Details 73-year-old obese female with hypothyroidism hypertension hypercholesterolemia impaired glucose tolerance and lumbar degenerative disc disease coming in for physical exam. Patient is up-to-date with colonoscopy, mammogram is due in September, bone density up to date. patient not taken BP. .. BP high here 150/80- took decongestant and has not taken BP med- advised to monitor. cough , had fever, 2 week negative covid, has had 9 cruises , congestion,, blood work done when patient is sick so repeat test, decline rectal. So wants a referral to the neurosurgeon here in [place] to look at the back for 2nd opinion. [facility] Medical History Elevated cholesterol Fatty liver HTN (hypertension) Hypothyroid Lumbar degenerative disc disease Obesity (BMI 30-39.9) Osteoarthritis Peripheral vascular disease Vitamin D deficiency Surgical History H/O colonoscopy History of bunionectomy History of carpal tunnel release History of foot surgery Hx laparoscopic cholecystectomy Hx of shoulder surgery Hx of tubal ligation Family History Father No problems noted. Mother Breast cancer Hypertension CVD (cardiovascular disease) Stroke Bladder cancer Maternal Aunt Breast cancer Maternal Grandmother Breast cancer Brother No problems noted. Sister No problems noted. Daughter No problems noted. Daughter No problems noted. 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 1. Little interest or pleasure in doing things: not at all 2. Feeling down, depressed, or hopeless: not at all 3. Trouble falling or staying asleep, or sleeping too much: not at all 4. Feeling tired or having little energy: not at all 5. Poor appetite or overeating: not at all 6. Feeling bad about yourself - or that you are a failure or have let yourself or your family down: not at all 7. Trouble concentrating on things, such as reading the newspaper or watching television: not at all 8. Moving or speaking so slowly that other people could have noticed. Or the opposite - being so fidgety or restless that you have been moving around a lot more than usual: not at all 9. Thoughts that you would be better off or of hurting yourself in some way: not at all Total score: 0 Depression Screening Interpretation: Negative Depression Screening Done: Yes Source: Developed by Drs. Hollis Pierson, Nick Luong and colleagues, with an educational cisco from [employer]. Thrive Questionnaire Date Thrive assessed: 10/22/22 AUDIT C Alcohol Use Questionnaire (AUDIT-C) 1. How often do you have a drink containing alcohol?: Monthly or less 2. How many drinks containing alcohol do you have on a typical day when you are drinking?: 1 or 2 3. How often do you have six or more drinks on one occasion?: Never Total Score: 1 Score Reviewed/Action Taken: No IHMA-7 AMB Questionnaire HIMA-7 Date HIMA - 7 assessed: 10/22/22 Source: Developed by Drs. Hollis Pierson, Vida Reyna, Nick Hicks and colleagues, with an educational cisco from [employer]. Review of Systems Const Denies poor appetite and Denies weakness Eyes Denies no additional complaints ENT Reports Normal hearing present, Denies dizziness, Denies nasal congestion, Denies tinnitus and Denies sore throat Card Denies chest pain, Denies syncope, Denies rapid heart rate and Denies dyspnea Resp Denies cough and Denies dyspnea GI Denies change in stool character, Reports constipation, Denies diarrhea, Denies nausea and Denies vomiting Denies urinary frequency, Denies difficulty voiding and Denies dysuria Neuro Reports Normal hearing present, Denies confusion, Denies dizziness, Denies syncope and Denies weakness Psych Denies confusion Physical exam (Primary Care) Vital Signs: Last Vital Signs Pulse 75 07/20/23 08:51 BP 140/82 H 07/20/23 08:51 Pulse Ox 94 07/20/23 08:51 Oxygen Delivery Method Room Air 07/20/23 08:51 BMI result Body Mass Index 35.0 Tobacco/Smoking Status: Tobacco use Status Tobacco use date assessed 11/26/22 07/20/23 08:54 Patient Tobacco Use Status Former Tobacco user 07/20/23 08:54 Tobacco use type Cigarette 07/20/23 08:54 e-Cigarette/Vaping Use Never Used 07/20/23 08:54 PHQ-9: PHQ-9 Score PHQ-9: Total score 0 07/20/23 08:54 Depression Screening Interpretation: Negative Thrive Assessment: Date of Thrive Assessment Date Thrive assessed 10/22/22 07/20/23 08:54 Const General: No confusion Orientation/consciousness: No confusion HENMT Head: Yes normocephalic Ears: external ears normal and TM's normal bilaterally Face and sinus: Yes normal facial exam Mouth: moist mucous membranes Throat: Yes tonsils normal Eyes Conjunctivae: conjunctivae normal Pupils: Equal, round and reactive pupils present and Pupil accommodation reflex normal Direct Ophthalmoscopy: normal light reflex Neck Neck: No lymphadenopathy Thyroid: Thyroid normal Chest Chest palpation & inspection: normal inspection of the chest Resp Effort & Inspection: normal respiratory effort and no audible wheezes Auscultation: clear to auscultation bilaterally, no crackles, no wheezes and lung sounds not diminished Cardio Rate: regular rate Rhythm: regular rhythm Peripheral pulses: radial pulses present and dorsalis pedis present GI Palpation (GI): no masses Auscultation: normal bowel sounds and normoactive bowel sounds Rectal Exam - Female: deferred Skin General skin exam: no rashes or lesions noted Rashes: no rashes Neuro General: No confusion Cranial nerves: Yes Equal, round and reactive pupils present and Yes Normal hearing present Cognition (Neuro): normal cognition Gait exam (Neuro): Normal gait present Motor exam (neuro): 5/5 motor strength present throughout Deep tendon reflexes (DTR's): Right brachioradialis reflex intensity grade: 2+, Left brachioradialis reflex intensity grade: 2+, Right patellar reflex intensity grade: 2+ and Left patellar reflex intensity grade: 2+ Extrem General: No edema Office Procedures Flu Questionnaire Does the patient have a severe egg allergy?: No Does the patient have severe life threatening allergies?: No Does the patient have a fever or illness today?: No Has the patient ever had Guillain-Ogden Syndrome?: No Has the patient ever had any past reaction to a flu shot?: No Immunizations flu vacc [id number] 6mos up(PF) 60 mcg(15 mcgx4)/0.5 mL IM syringe Performing Provider: Renuka Leon MD Performing Location: [facility] Documented (not given) by: Cammie Rodríguez CMA on 07/20/23 08:55 Reason Not Given: Patient Refused Assessment and Plan Assessment & Plan (1) Annual physical exam: Code(s): Z00.00 - Encounter for general adult medical examination without abnormal findings (2) Impaired fasting glucose: Code(s): R73.01 - Impaired fasting glucose Plan: Decrease the amount of carbohydrate intake, pasta, bread, rice and potatoes are all sugar and that is aside from all the sweet stuff, remember that fruits are good but they are Sweet also. (3) Elevated cholesterol: Code(s): E78.00 - Pure hypercholesterolemia, unspecified Plan: Avoid fried foods, chicken skin, eggs, butter margarine, pastries and meat. Be it pork or beef they have a lot of cholesterol LDL goal of less than 130 and triglyceride of less than 150 patient is placed on rosuvastatin 10 mg (4) HTN (hypertension): Code(s): I10 - Essential (primary) hypertension Qualifiers: Hypertension type: essential hypertension Qualified Code(s): I10 - Essential (primary) hypertension Plan: Continue with blood pressure medication. Decrease salt intake and exercise patient on losartan 100 mg once a day (5) Obesity (BMI 30-39.9): Code(s): E66.9 - Obesity, unspecified Plan: Diet and exercise (6) Hypothyroid: Code(s): E03.9 - Hypothyroidism, unspecified Qualifiers: Hypothyroidism type: acquired Qualified Code(s): E03.9 - Hypothyroidism, unspecified Plan: Continue with the thyroid medication. Due to the wide swings of the TSH will have a retest of thyroid 2 months. (7) Lumbar degenerative disc disease: Comment: 08/04/2022 L3-4, L4-5 decompressive laminectomy and medial facetectomy by Dr. Lundberg. MRI February 2023MRI done showing L2-L3 mild to moderate spinal canal stenosis and compression of the exiting L2 right nerve root L4-L5 progressive moderate to severe left neural foraminal stenosis with mild compression of the exiting left L4 nerve L3-L4 posterior decompression without spinal canal stenosis or foraminal nerve root compression Code(s): M51.36 - Other intervertebral disc degeneration, lumbar region Orders: Orders Thyroid Stimulating Hormone 2 Months E03.9 - Hypothyroidism, unspecified Influenza [id number] Immunization Today Z23 - Encounter for immunization Free T4 (Free Thyroxine) 2 Months E03.9 - Hypothyroidism, unspecified Referrals Neurosurgery Referral M51.36 - Other intervertebral disc degeneration, lumbar region Medications: New amoxicillin 875 mg PO BID 14 tabs 0RF J40 - Bronchitis, not specified as acute or chronic Refilled tramadol 50 mg PO BEDTIME 30 tabs 0RF M51.36 - Other intervertebral disc degeneration, lumbar region Coding Level of Care Code Est Pt Prev Care >65y(43978) Diagnoses Annual physical exam Z00.00 Impaired fasting glucose R73.01 Elevated cholesterol E78.00 Essential hypertension I10 Hypertension type: essential hypertension Obesity (BMI 30-39.9) E66.9 Acquired hypothyroidism E03.9 Hypothyroidism type: acquired Lumbar degenerative disc disease M51.36
== END 2023-07-20 09:35 | disposition home or self-care (01) ==
PROVIDERS: Visit Provider Internal Medicine
DX: Z00.00 Encounter for general adult medical examination without abnormal findings (principal); R73.01 Impaired fasting glucose; E78.00 Pure hypercholesterolemia, unspecified; I10 Essential (primary) hypertension; E66.9 Obesity, unspecified; E03.9 Hypothyroidism, unspecified; M51.36 Other intervertebral disc degeneration, lumbar region
CPT/HCPCS: 99397

== ENCOUNTER 2023-08-28 10:51 | Outpatient (AMB) | payer MEDICARE, SELFPAY ==
--- NOTE | 2023-08-28 11:17 | A.OFFVIS_ITS ---
Intake Intake Visit Reasons: Intervertebral disc degeneretion Allergies shellfish derived [SHELLFISH DERIVED] Allergy (Severe, Verified 07/20/23 08:51) HIVES bacitracin [From Neosporin ([id number])] Allergy (Intermediate, Verified 07/20/23 08:51) Rash neomycin [From Neosporin ([id number])] Allergy (Intermediate, Verified 07/20/23 08:51) Rash polymyxin B [From Neosporin ([id number])] Allergy (Intermediate, Verified 07/20/23 08:51) Rash adhesive Allergy (Unknown, Verified 07/20/23 08:51) Rash coffee (Coffea arabica) Adverse Reaction (Intermediate, Verified 07/20/23 08:51) Hives [facility] Medical History Elevated cholesterol Fatty liver HTN (hypertension) Hypothyroid Lumbar degenerative disc disease Obesity (BMI 30-39.9) Osteoarthritis Peripheral vascular disease Vitamin D deficiency Surgical History H/O colonoscopy History of bunionectomy History of carpal tunnel release History of foot surgery Hx laparoscopic cholecystectomy Hx of shoulder surgery Hx of tubal ligation Family History Father No problems noted. Mother Breast cancer Hypertension CVD (cardiovascular disease) Stroke Bladder cancer Maternal Aunt Breast cancer Maternal Grandmother Breast cancer Brother No problems noted. Sister No problems noted. Daughter No problems noted. Daughter No problems noted. 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 She is a 73-year-old female underwent L3-4, L4-[address] Lundberg at [facility] in July of 2022 for primarily right-sided leg pain with numbness. She did have bilateral pain at the time but the right leg was the focus of the symptomology. A bilateral decompression was done at that time, the patient tells me that the right-sided leg pain for the most part went away but she progressively over the following 6 months after the surgery developed a severe left leg radiculopathy which goes from her low back down into her left buttock, goes into her posterior thigh, lateral calf and feels like squeezing around her ankle. Imaging done sometime around December 2022 showed good decompression at the surgical sites with no residual nerve compression. She was sent for SI joint injections which did not help. An SI joint belt was prescribed. Unfortunately the symptoms have only steadily gotten worse but Dr. Lundberg does not have anything further to offer the patient. She was sent to us for evaluation for 2nd opinion. Her quality of life is suffering significantly at this point and she continues to be more disabled and immobile as the weeks go on. She is very frustrated by this. She has tried physical therapy, injections, anti- inflammatories etc.. She is very frustrated at the quality of life she currently has. PMH: As mentioned she has a history of back surgery, osteopenia, bronchitis, carpal tunnel, hypertension cholesterol but other than that she is relatively healthy, denies any cardiac disease, pulmonary or renal problems. Denies coagulopathies. Social hx: She does not smoke Medications: Vitamin D3, ibuprofen, levothyroxine, losartan, multivitamin, Crestor, tramadol Allergies: Please see the [employer] list Physical exam: She is able to stand up on her own slowly, she is walking with a walker slowly, she has a lot of pain in her back with iliopsoas flexion, and straightening her leg gives her significant pain into her back. Internal ro tation of the left leg was difficult and she was unable to do this secondary to pain and discomfort. External rotation was pain free. Reflexes are intact. Distal lower extremity strength is intact. Imaging review: Lumbar MRI done at [facility] in February of 2023 shows evidence of good decompression at the L3-4 and L4-5 sites. She does have facet arthropathy at L3-4. There is no evidence of spondylolisthesis. Impression: 73-year-old female who had L3-4, L4-5 decompression done at [facility] by Dr. Lundberg about 1 year ago for right leg pain who has now developed a severe left leg radiculopathy going down into her posterior thigh, calf and into her ankle. As the weeks go on she is becoming more and more mobile. She has tried conservative management. She was sent for SI joint blocks that are not working.A postoperative MRI at [place] showing no residual nerve compression. I did standing flexion-extension x-rays here in the office today these show no signs of instability. She had a left hip x-ray done as well, there is no read on it yet but it looks like just generalized arthritis. I am going to repeat the MRI as the symptoms have significantly changed over the last 6 months and she is now getting around with a walker and wheelchair at times. It sounds like something has changed since the last MRI that would warrant new imaging. Thank you for allowing us to care for your patient. The total time spent with this visit with this patient was 45 minutes reviewing history, physical exam, lumbar imaging review, and implementation of treatment plan or further diagnostic testing Aftab Mclean MD,PhD [facility] Orders: Orders XR lumbar spine 4V min Today M54.16 - Radiculopathy, lumbar region XR hip LT min 2V Today M25.552 - Pain in left hip MR lumbar spine wo/w con Today M54.16 - Radiculopathy, lumbar region Coding Level of Care Code New Pt Level 4 (16626) Diagnoses Lumbar radiculopathy M54.16
== END 2023-08-28 12:46 | disposition home or self-care (01) ==
PROVIDERS: PCP Internal Medicine; Referring Provider Internal Medicine; Visit Provider Physician Assistant
DX: M54.16 Radiculopathy, lumbar region (principal)
CPT/HCPCS: 99204

== ENCOUNTER 2023-08-28 10:51 | Outpatient (REF) | payer MEDICARE, SELFPAY ==
--- NOTE | ~2023-08-28 | XR_ITS ---
EXAMINATION: XR HIP, LEFT CLINICAL INFORMATION: Left hip pain. COMPARISON: Radiographs dated 09/28/2013. TECHNIQUE: AP pelvis and frog-leg lateral view of the left hip. FINDINGS: Bony alignment and mineralization are normal. The bilateral acetabular joint spaces are well-maintained. There is mild subchondral sclerosis and irregularity of the bilateral acetabular roofs. There is mild peripheral osteophyte formation of the articular surfaces of the left hip. The femoral heads are smooth. There is no fracture or dislocation. The bilateral sacroiliac joints are symmetric and well-maintained. The pubic symphysis is intact. There are multiple pelvic phleboliths. XR/XR hip LT min 2V IMPRESSION: There is mild to moderate osteoarthritic change of the right hip, and very mild osteoarthritic change is seen of the left hip. No fracture or dislocation is seen.
--- NOTE | ~2023-08-28 | XR_ITS ---
EXAMINATION: XR LUMBOSACRAL SPINE WITH OBLIQUES CLINICAL INFORMATION: Lumbar radiculopathy. COMPARISON: Lumbar spine radiographs dated 11/26/2022. TECHNIQUE: AP and lateral (neutral, flexion and extension) views of the lumbosacral spine are submitted. FINDINGS: There is bony demineralization. The lowermost ribs are diminutive. There is a mild lumbar levoscoliosis. Vertebral body heights are normal. At L4-L5, there is a 6 mm anterolisthesis. The remaining disc spaces are relatively well-maintained. No acute fracture or spondylolisthesis is seen. There is multi-level thoracolumbar spondylosis. There are small Schmorl's nodes nodes of the T11 and T12 lower endplates. The posterior elements are intact. There is marked facet arthropathy at L4-L5 and L5-S1. There are right upper quadrant surgical clips. XR/XR lumbar spine 4V min IMPRESSION: 1. There is moderate degenerative disc disease at L5-S1. 2. There is multi-level thoracolumbar spondylosis and facet arthropathy.
== END 2023-08-28 10:52 | disposition home or self-care (01) ==
LOC: HO.HOSX 10:51
PROVIDERS: PCP Internal Medicine; Visit Provider Physician Assistant
DX: M54.16 Radiculopathy, lumbar region (principal); M25.552 Pain in left hip
CPT/HCPCS: 72110; 73502; 99202

== ENCOUNTER 2023-09-08 16:24 | Outpatient (AMB) | payer MEDICARE, SELFPAY ==
--- NOTE | 2023-09-08 16:27 | MHC.PC.OV ---
Intake Visit Reasons: Increased pain Allergies shellfish derived [SHELLFISH DERIVED] Allergy (Severe, Verified 09/08/23 16:27) HIVES bacitracin [From Neosporin ([id number])] Allergy (Intermediate, Verified 09/08/23 16:27) Rash neomycin [From Neosporin ([id number])] Allergy (Intermediate, Verified 09/08/23 16:27) Rash polymyxin B [From Neosporin ([id number])] Allergy (Intermediate, Verified 09/08/23 16:27) Rash adhesive Allergy (Unknown, Verified 09/08/23 16:27) Rash coffee (Coffea arabica) Adverse Reaction (Intermediate, Verified 09/08/23 16:27) Hives Medication List - Last Reconciled 09/08/23 by Renuka Leon MD amoxicillin 875 mg PO BID cholecalciferol (vitamin D3) (Vitamin D3) 25 mcg PO DAILY diphenhydramine-acetaminophen 25-500 mg-mg/mL mL PO .QD prn ibuprofen 400 mg PO Q6H PRN levothyroxine Take 1 tablet every day except for Thursday losartan 100 mg PO DAILY 90 days multivitamin 1 tab PO DAILY rosuvastatin (Crestor) 10 mg PO BEDTIME tizanidine 4 mg PO BID PRN tramadol 50 mg PO BEDTIME Tobacco use date assessed: 11/26/22 Fall risk assessment: No Falls in past year Last assessed Fall Risk: 09/08/23 Dental Screening Dental Screen Date: 09/08/23 Did you have a dental visit in the last 12 months?: Yes Did you have a dental problem in the last 6 months where you did not have access to dental care?: No Was dental information given to patient?: Patient has dentist HPI Increased pain HPI Details 73-year-old obese female with lumbar degenerative disc disease hypothyroidism hypertension hypercholesterolemia and impaired glucose tolerance last seen in July 2023. Patient complained of low back pain and has been advised to get an MRI done. Patient was supposed to have an MRI but due to the back pain this did not go through. Patient has been asking for pain medication and has been prescribed tramadol but has been told to take at nighttime only and so has been in a lot of pain. Patient seen spine center but in the last 6 months has developed severe left leg radiculopathy. Frustrated with the pain has had physical therapy with relief advised to repeat the MRI.. Spoke to the patient and advised tramadol to be taken at different times of the day also to help with the pain [facility] Medical History (Reviewed 05/01/23 @ 11:22 by Bipin Mccord [facility]) Elevated cholesterol Fatty liver HTN (hypertension) Hypothyroid Lumbar degenerative disc disease Obesity (BMI 30-39.9) Osteoarthritis Peripheral vascular disease Vitamin D deficiency Surgical History H/O colonoscopy History of bunionectomy History of carpal tunnel release History of foot surgery Hx laparoscopic cholecystectomy Hx of shoulder surgery Hx of tubal ligation Family History Father No problems noted. Mother Breast cancer Hypertension CVD (cardiovascular disease) Stroke Bladder cancer Maternal Aunt Breast cancer Maternal Grandmother Breast cancer Brother No problems noted. Sister No problems noted. Daughter No problems noted. Daughter No problems noted. 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 1. Little interest or pleasure in doing things: not at all 2. Feeling down, depressed, or hopeless: not at all 3. Trouble falling or staying asleep, or sleeping too much: not at all 4. Feeling tired or having little energy: not at all 5. Poor appetite or overeating: not at all 6. Feeling bad about yourself - or that you are a failure or have let yourself or your family down: not at all 7. Trouble concentrating on things, such as reading the newspaper or watching television: not at all 8. Moving or speaking so slowly that other people could have noticed. Or the opposite - being so fidgety or restless that you have been moving around a lot more than usual: not at all 9. Thoughts that you would be better off or of hurting yourself in some way: not at all Total score: 0 Depression Screening Interpretation: Negative Depression Screening Done: Yes Source: Developed by Drs. Hollis Pierson, Vida Reyna, Nick Hicks and colleagues, with an educational cisco from [employer]. Thrive Questionnaire Date Thrive assessed: 10/22/22 AUDIT C Alcohol Use Questionnaire (AUDIT-C) 1. How often do you have a drink containing alcohol?: Monthly or less 2. How many drinks containing alcohol do you have on a typical day when you are drinking?: 1 or 2 3. How often do you have six or more drinks on one occasion?: Never Total Score: 1 Score Reviewed/Action Taken: No HIMA-7 AMB Questionnaire HIMA-7 Date HIMA - 7 assessed: 10/22/22 Source: Developed by Drs. Hollis Pierson, Vida Reyna, Nick Hicks and colleagues, with an educational cisco from [employer]. Physical exam (Primary Care) Tobacco/Smoking Status: Tobacco use Status Tobacco use date assessed 11/26/22 09/08/23 16:27 Patient Tobacco Use Status Former Tobacco user 09/08/23 16:27 Tobacco use type Cigarette 09/08/23 16:27 e-Cigarette/Vaping Use Never Used 09/08/23 16:27 PHQ-9: PHQ-9 Score PHQ-9: Total score 0 09/08/23 16:28 Depression Screening Interpretation: Negative Thrive Assessment: Date of Thrive Assessment Date Thrive assessed 10/22/22 09/08/23 16:27 Telehealth Telehealth Location of provider rendering services: practice address Location of patient: address on file Patient Identification confirmed using: Name, : Yes Telehealth method: video (Android) Patient verbally consented to treatment: Yes Patient verbally consented to billing insurance company: Yes Patient informed of any privacy concerns related to visit: Yes Minutes spent on Phone/Video with Pt.: 25 Assessment and Plan Assessment & Plan (1) Lumbar radiculopathy: Code(s): M54.16 - Radiculopathy, lumbar region Plan: MRI is pending and tramadol can be taken 3 times a day as needed. Patient was also given tizanidine muscle relaxant to help with pain. Patient will get back to me to see how she does with the pain on the back. (2) Lumbar degenerative disc disease: Comment: 08/04/2022 L3-4, L4-5 decompressive laminectomy and medial facetectomy by Dr. Lundberg. MRI February 2023MRI done showing L2-L3 mild to moderate spinal canal stenosis and compression of the exiting L2 right nerve root L4-L5 progressive moderate to severe left neural foraminal stenosis with mild compression of the exiting left L4 nerve L3-L4 posterior decompression without spinal canal stenosis or foraminal nerve root compression Code(s): M51.36 - Other intervertebral disc degeneration, lumbar region (3) Hypothyroid: Code(s): E03.9 - Hypothyroidism, unspecified Qualifiers: Hypothyroidism type: acquired Qualified Code(s): E03.9 - Hypothyroidism, unspecified Plan: TSH mildly elevated will have to retest (4) HTN (hypertension): Code(s): I10 - Essential (primary) hypertension Qualifiers: Hypertension type: essential hypertension Qualified Code(s): I10 - Essential (primary) hypertension Plan: Continue with blood pressure medication. Decrease salt intake and exercise on losartan 100 mg once a day (5) Elevated cholesterol: Code(s): E78.00 - Pure hypercholesterolemia, unspecified Plan: Avoid fried foods, chicken skin, eggs, butter margarine, pastries and meat. Be it pork or beef they have a lot of cholesterol LDL goal of less than 130 and triglyceride of less than 150 patient on rosuvastatin 10 mg once a day (6) Impaired fasting glucose: Code(s): R73.01 - Impaired fasting glucose Plan: Decrease the amount of carbohydrate intake, pasta, bread, rice and potatoes are all sugar and that is aside from all the sweet stuff, remember that fruits are good but they are Sweet also. Medications: New tizanidine 4 mg PO BID PRN 30 caps 0RF muscle spasticity Discontinued cyclobenzaprine Discontinued Reason: Doctor's Order 10 mg PO BEDTIME PRN 30 tabs 0RF muscle spasm Coding Level of Care Code Tele Est Pt Level 4 (06453) Diagnoses Lumbar radiculopathy M54.16 Lumbar degenerative disc disease M51.36 Acquired hypothyroidism E03.9 Hypothyroidism type: acquired Essential hypertension I10 Hypertension type: essential hypertension Elevated cholesterol E78.00 Impaired fasting glucose R73.01
== END 2023-09-08 17:23 | disposition home or self-care (01) ==
PROVIDERS: PCP Internal Medicine; Visit Provider Internal Medicine
DX: M54.16 Radiculopathy, lumbar region (principal); M51.36 Other intervertebral disc degeneration, lumbar region; E03.9 Hypothyroidism, unspecified; I10 Essential (primary) hypertension; E78.00 Pure hypercholesterolemia, unspecified; R73.01 Impaired fasting glucose
CPT/HCPCS: 99214

== ENCOUNTER 2023-09-30 09:10 | Outpatient (REF) | payer MEDICARE, SELFPAY ==
[2023-09-30 10:59] LABS: Thyroid Stimulating Hormone 4.22 uIU/mL (0.32-4.0)
== END 2023-09-30 09:11 | disposition home or self-care (01) ==
LOC: HO.LAB 09:10
PROVIDERS: PCP Internal Medicine; Visit Provider Internal Medicine
DX: E03.9 Hypothyroidism, unspecified (principal)
CPT/HCPCS: 36415; 84439; 84443

== ENCOUNTER 2023-10-06 11:33 | Outpatient (AMB) | payer MEDICARE, SELFPAY ==
--- NOTE | 2023-10-02 10:28 | MHC.OFFVIS ---
Intake Intake Visit Reasons: Hypertension Allergies shellfish derived [SHELLFISH DERIVED] Allergy (Severe, Verified 09/08/23 16:27) HIVES bacitracin [From Neosporin ([id number])] Allergy (Intermediate, Verified 09/08/23 16:27) Rash neomycin [From Neosporin ([id number])] Allergy (Intermediate, Verified 09/08/23 16:27) Rash polymyxin B [From Neosporin ([id number])] Allergy (Intermediate, Verified 09/08/23 16:27) Rash adhesive Allergy (Unknown, Verified 09/08/23 16:27) Rash coffee (Coffea arabica) Adverse Reaction (Intermediate, Verified 09/08/23 16:27) Hives [facility] Medical History (Reviewed 05/01/23 @ 11:22 by Bipin Mccord [facility]) Elevated cholesterol Fatty liver HTN (hypertension) Hypothyroid Lumbar degenerative disc disease Obesity (BMI 30-39.9) Osteoarthritis Peripheral vascular disease Vitamin D deficiency Surgical History H/O colonoscopy History of bunionectomy History of carpal tunnel release History of foot surgery Hx laparoscopic cholecystectomy Hx of shoulder surgery Hx of tubal ligation Family History (Reviewed 05/01/23 @ 11:22 by Bipin Mccord [facility]) Father No problems noted. Mother Breast cancer Hypertension CVD (cardiovascular disease) Stroke Bladder cancer Maternal Aunt Breast cancer Maternal Grandmother Breast cancer Brother No problems noted. Sister No problems noted. Daughter No problems noted. Daughter No problems noted. 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
[2023-10-06 11:40] VITALS: BP 128/70; PULSE 93; O2SAT 95; BMI 33.0
--- NOTE | 2023-10-06 11:40 | MHC.PC.OV ---
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: No Accompanied by: Self / Same As Patient Allergies shellfish derived [SHELLFISH DERIVED] Allergy (Severe, Verified 10/06/23 11:40) HIVES bacitracin [From Neosporin ([id number])] Allergy (Intermediate, Verified 10/06/23 11:40) Rash neomycin [From Neosporin ([id number])] Allergy (Intermediate, Verified 10/06/23 11:40) Rash polymyxin B [From Neosporin ([id number]-[id number])] Allergy (Intermediate, Verified 10/06/23 11:40) Rash adhesive Allergy (Unknown, Verified 10/06/23 11:40) Rash coffee (Coffea arabica) Adverse Reaction (Intermediate, Verified 10/06/23 11:40) Hives Tobacco use date assessed: 11/26/22 Fall risk assessment: No Falls in past year Last assessed Fall Risk: 10/06/23 Dental Screening Dental Screen Date: 10/06/23 Did you have a dental visit in the last 12 months?: Yes Did you have a dental problem in the last 6 months where you did not have access to dental care?: No Was dental information given to patient?: Patient has dentist HPI Hypertension HPI Details 73-year-old obese female(noted 13 lb weight loss) with a history of lumbar radiculopathy hypothyroid hypertension hypercholesterolemia impaired glucose tolerance coming in for follow-up. Last seen in August 2023 patient's colonoscopy is up-to-date mammogram is due this month up-to-date with bone density. Review of the notes had a CT scan 09/14/2023 of the lumbar spine without contrast showing moderate degenerative change of the lumbar spine without acute fracture L4-5 foraminal protrusion with advanced left neural foraminal narrowing contacting the exiting nerve root. for the back problem - will be having surgery - planned 11/2023. gabapentin and tramadol. patient was given gabapentin and discussed tehat can take tramadol still [facility] Medical History Elevated cholesterol Fatty liver HTN (hypertension) Hypothyroid Lumbar degenerative disc disease Obesity (BMI 30-39.9) Osteoarthritis Peripheral vascular disease Vitamin D deficiency Surgical History History of foot surgery History of bunionectomy Hx of tubal ligation Hx laparoscopic cholecystectomy History of carpal tunnel release Hx of shoulder surgery H/O colonoscopy Family History Father No problems noted. Mother Breast cancer Hypertension CVD (cardiovascular disease) Stroke Bladder cancer Maternal Aunt Breast cancer Maternal Grandmother Breast cancer Brother No problems noted. Sister No problems noted. Daughter No problems noted. Daughter No problems noted. 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 Hollis Pierson, Vida Reyna, Nick Hicks and colleagues, with an educational cisco from [employer]. Physical exam (Primary Care) Vital Signs: Last Vital Signs Pulse 93 10/06/23 11:40 BP 128/70 10/06/23 11:40 Pulse Ox 95 10/06/23 11:40 Oxygen Delivery Method Room Air 10/06/23 11:40 BMI result Body Mass Index 33.0 Tobacco/Smoking Status: Tobacco use Status Tobacco use date assessed 11/26/22 10/06/23 11:43 Patient Tobacco Use Status Former Tobacco user 10/06/23 11:43 Tobacco use type Cigarette 10/06/23 11:43 e-Cigarette/Vaping Use Never Used 10/06/23 11:43 Thrive Assessment: Date of Thrive Assessment Date Thrive assessed 10/22/22 10/06/23 11:43 Const Other: Patient walks with a walker right now General: alert; No acute distress Eyes Conjunctivae: conjunctivae normal Resp Auscultation: clear to auscultation bilaterally Cardio Rate: regular rate Rhythm: regular rhythm GI Inspection: Yes normal to inspection Extrem General: Yes normal to inspection and No edema Assessment and Plan Assessment & Plan (1) Lumbar degenerative disc disease: Comment: 08/04/2022 L3-4, L4-5 decompressive laminectomy and medial facetectomy by Dr. Lundberg. MRI February 2023MRI done showing L2-L3 mild to moderate spinal canal stenosis and compression of the exiting L2 right nerve root L4-L5 progressive moderate to severe left neural foraminal stenosis with mild compression of the exiting left L4 nerve L3-L4 posterior decompression without spinal canal stenosis or foraminal nerve root compression Code(s): M51.36 - Other intervertebral disc degeneration, lumbar region Plan: Continue with pain medication. Planned procedure by Dr. Vinay sales in November 2023 (2) Hypothyroid: Code(s): E03.9 - Hypothyroidism, unspecified Qualifiers: Hypothyroidism type: acquired Qualified Code(s): E03.9 - Hypothyroidism, unspecified Plan: Continue with thyroid medication (3) Obesity (BMI 30-39.9): Code(s): E66.9 - Obesity, unspecified Plan: Diet and exercise (4) HTN (hypertension): Code(s): I10 - Essential (primary) hypertension Qualifiers: Hypertension type: essential hypertension Qualified Code(s): I10 - Essential (primary) hypertension Plan: Continue with blood pressure medication. Decrease salt intake and exercise on losartan 100 mg once a day (5) Elevated cholesterol: Code(s): E78.00 - Pure hypercholesterolemia, unspecified Plan: Avoid fried foods, chicken skin, eggs, butter margarine, pastries and meat. Be it pork or beef they have a lot of cholesterol LDL goal of less than 130 and triglyceride of less than 150. Patient on rosuvastatin 10 mg once a day (6) Impaired fasting glucose: Code(s): R73.01 - Impaired fasting glucose Plan: Decrease the amount of carbohydrate intake, pasta, bread, rice and potatoes are all sugar and that is aside from all the sweet stuff, remember that fruits are good but they are Sweet also. Coding Level of Care Code Est Pt Level 4 (68614) Diagnoses Lumbar degenerative disc disease M51.36 Acquired hypothyroidism E03.9 Hypothyroidism type: acquired Obesity (BMI 30-39.9) E66.9 Essential hypertension I10 Hypertension type: essential hypertension Elevated cholesterol E78.00 Impaired fasting glucose R73.01
== END 2023-10-06 12:27 | disposition home or self-care (01) ==
PROVIDERS: PCP Internal Medicine; Visit Provider Internal Medicine
DX: M51.36 Other intervertebral disc degeneration, lumbar region (principal); E03.9 Hypothyroidism, unspecified; E66.9 Obesity, unspecified; Z68.33 Body mass index [BMI] 33.0-33.9, adult; I10 Essential (primary) hypertension; E78.00 Pure hypercholesterolemia, unspecified; R73.01 Impaired fasting glucose
CPT/HCPCS: 99214

== ENCOUNTER 2023-10-08 10:40 | Outpatient (REF) | payer MEDICARE, SELFPAY | END 2023-10-08 10:41 | disposition home or self-care (01) | LOC: HO.MAMMO 10:40 | PROVIDERS: PCP Internal Medicine; Visit Provider Internal Medicine | DX: Z12.31 Encounter for screening mammogram for malignant neoplasm of breast (principal) | CPT/HCPCS: 77063; 77067 ==

== ENCOUNTER → 2023-10-08 11:00 | Outpatient (BNV) | payer MEDICARE, SELFPAY | PROVIDERS: PCP Internal Medicine; Visit Provider Radiology Diagnostic Radiology | DX: Z12.31 Encounter for screening mammogram for malignant neoplasm of breast (principal) | CPT/HCPCS: 77063; 77067 ==

== ENCOUNTER → 2023-11-26 13:53 | Outpatient (BNV) | payer MEDICARE, SELFPAY | PROVIDERS: PCP Internal Medicine; Visit Provider Internal Medicine Cardiovascular Disease | DX: I49.3 Ventricular premature depolarization (principal); I49.9 Cardiac arrhythmia, unspecified | CPT/HCPCS: 93010 ==

== ENCOUNTER 2023-12-10 10:03 | Day surgery (SDC) | payer MEDICARE, SELFPAY ==
--- NOTE | 2023-11-26 | ECG_ITS ---
Test Reason : HTN Blood Pressure : / mmHG Vent. Rate : 075 BPM Atrial Rate : 075 BPM P-R Int : 138 ms QRS Dur : 092 ms QT Int : 404 ms P-R-T Axes : 070 037 043 degrees QTc Int : 451 ms Sinus rhythm with sinus arrhythmia with occasional Premature ventricular complexes Otherwise normal ECG When compared with ECG of 28-FEB-2020 10:24, Premature ventricular complexes are now Present Premature supraventricular complexes are no longer Present Nonspecific T wave abnormality no longer evident in Inferior leads Referred By: Jami Henriquez Electronically Signed By:Franki Darden
[2023-11-26 13:15] VITALS: BP 143/69; PULSE 75; RESP 18; O2SAT 98; BMI 33.2
--- NOTE | 2023-11-26 13:34 | HO.ANESPROP2 ---
Documented by User: Jami Henriquez NP 11/26/23 13:39 HPI - Anesthesia Eval Consult details Narrative: 73yo F for Left L4-5 Facetectomy (poss disc) extraforaminal approach with Metrix tubes, No recent illness No CP/SOB with minimal activity. Walks with walker. Limited by back pain and LLE numbness PMFSH Active Problems Active Problems: All Active Problems (Updated 11/26/23 @ 13:04 by Annita Wick RN) Lumbar radiculopathy (Acute) Left hip pain (Acute) Bronchitis (Acute) Lumbar degenerative disc disease (Acute) Carpal tunnel syndrome of left wrist (Acute) Trigger finger of right thumb (Acute) Radicular leg pain (Acute) Cervical spondylosis (Acute) Osteopenia (Acute) Chronic headache (Acute) Annual physical exam (Acute) Numbness of left hand (Acute) Shoulder pain, left (Acute) Impaired fasting glucose (Acute) Elevated cholesterol (Acute) HTN (hypertension) (Acute) Osteoarthritis (Acute) Obesity (BMI 30-39.9) (Acute) Hypothyroid (Acute) Past Medical History Medical History Back pain Arthritis Numbness Fatty liver Lumbar degenerative disc disease Osteoarthritis Peripheral vascular disease Obesity (BMI 30-39.9) Vitamin D deficiency Hypothyroid Elevated cholesterol HTN (hypertension) Family History Family History Father No problems noted. Mother Breast cancer Hypertension CVD (cardiovascular disease) Stroke Bladder cancer Maternal Aunt Breast cancer Maternal Grandmother Breast cancer Brother No problems noted. Sister No problems noted. Daughter No problems noted. Daughter No problems noted. Family history of problems with anesthesia: No Surgical History Surgical History Hx of decompressive lumbar laminectomy History of foot surgery History of bunionectomy Hx of tubal ligation Hx laparoscopic cholecystectomy History of carpal tunnel release Hx of shoulder surgery H/O colonoscopy History of Problems with Anesthesia: No Social History Social History Housing: House Are you a primary healthcare management consultant to a significant other at home: No Do you presently have visiting nurse or other home services: No Alcohol intake: current Alcohol intake frequency: does not drink Alcohol type: wine Patient Tobacco Use Status: Former Tobacco user Tobacco use type: Cigarette Years Smoked: smoked for 1 year 1979 e-Cigarette/Vaping Use: Never Used Second Hand Smoke Exposure: No Use of substances other than those prescribed or required for medical reasons: No Have you been hit, kicked, punched, or otherwise hurt by someone within the past year? 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 Cognitive needs: No Hearing needs: No Vision needs: Yes Meds Allergies Allergy/AdvReac Type Severity Reaction Status Date / Time shellfish derived Allergy Severe HIVES Verified 10/06/23 11:40 [SHELLFISH DERIVED] bacitracin Allergy Intermediate Rash Verified 10/06/23 11:40 [From Neosporin ([id number])] neomycin Allergy Intermediate Rash Verified 10/06/23 11:40 [From Neosporin (hss-tub-lyamu)] polymyxin B Allergy Intermediate Rash Verified 10/06/23 11:40 [From Neosporin (hpi-vvr-sggts)] adhesive Allergy Unknown Rash Verified 10/06/23 11:40 povidone-iodine Allergy Hives Verified 11/26/23 13:08 [From Betadine] coffee (Coffea arabica) AdvReac Intermediate Hives Verified 10/06/23 11:40 Home Medications Medication Instructions Recorded Confirmed Last Taken Type levothyroxine 175 mcg tablet 175 mcg PO DAILY 11/26/23 12/10/23 12/10/23 07:30 History Exam Height,Weight and Vital Signs: Height 5 ft 6 in Weight 93.44 kg Last Vital Signs Pulse 75 11/26/23 13:15 Resp 18 11/26/23 13:15 BP 143/69 H 11/26/23 13:15 Pulse Ox 98 11/26/23 13:15 O2 Del Method Room Air 11/26/23 13:15 Airway Mallampati Class: I TM Dist: >3cm Neck ROM: Full Loose/Missing/Broken Teeth: No Heart: RRR Lungs: CTAB Assessment and Plan Assessment Anesthesia Assessment: Anesthesia Plan Discussed and PAT Visit Final Anesthetic Review Family History of Problems with Anesthesia: No History of Problems with Anesthesia: No Documented by User: Hamilton Kelley MD 12/10/23 11:38 [facility] Past Medical History Medical History Back pain Arthritis Numbness Fatty liver Lumbar degenerative disc disease Osteoarthritis Peripheral vascular disease Obesity (BMI 30-39.9) Vitamin D deficiency Hypothyroid Elevated cholesterol HTN (hypertension) Family History Family History Father No problems noted. Mother Breast cancer Hypertension CVD (cardiovascular disease) Stroke Bladder cancer Maternal Aunt Breast cancer Maternal Grandmother Breast cancer Brother No problems noted. Sister No problems noted. Daughter No problems noted. Daughter No problems noted. Surgical History Surgical History Hx of decompressive lumbar laminectomy History of foot surgery History of bunionectomy Hx of tubal ligation Hx laparoscopic cholecystectomy History of carpal tunnel release Hx of shoulder surgery H/O colonoscopy Social History Social History Housing: House Are you a primary healthcare management consultant to a significant other at home: No Do you presently have visiting nurse or other home services: No Alcohol intake: current Alcohol intake frequency: does not drink Alcohol type: wine Patient Tobacco Use Status: Former Tobacco user Tobacco use type: Cigarette Years Smoked: smoked for 1 year 1979 e-Cigarette/Vaping Use: Never Used Second Hand Smoke Exposure: No Use of substances other than those prescribed or required for medical reasons: No Have you been hit, kicked, punched, or otherwise hurt by someone within the past year? 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 Cognitive needs: No Hearing needs: No Vision needs: Yes Meds Allergies Allergy/AdvReac Type Severity Reaction Status Date / Time shellfish derived Allergy Severe HIVES Verified 10/06/23 11:40 [SHELLFISH DERIVED] bacitracin Allergy Intermediate Rash Verified 10/06/23 11:40 [From Neosporin ([id number])] neomycin Allergy Intermediate Rash Verified 10/06/23 11:40 [From Neosporin ([id number])] polymyxin B Allergy Intermediate Rash Verified 10/06/23 11:40 [From Neosporin ([id number])] adhesive Allergy Unknown Rash Verified 10/06/23 11:40 povidone-iodine Allergy Hives Verified 11/26/23 13:08 [From Betadine] coffee (Coffea arabica) AdvReac Intermediate Hives Verified 10/06/23 11:40 Home Medications Medication Instructions Recorded Confirmed Last Taken Type levothyroxine 175 mcg tablet 175 mcg PO DAILY 11/26/23 12/10/23 12/10/23 07:30 History Exam Airway Mallampati Class: II Assessment and Plan Final Anesthetic Review NPO: Yes ASA Class: III Final Preanesthetic Review: No Changes in Pt Med Stat, Meds/Allgs Chart Reviewed and Consent Obtained/Reviewed Patient Risk: Intermediate Procedure Risk: Intermediate Assessment/Block/Sedation in SS: Assess/Block/Sedation-SS Anesthetic Plan Anesthetic Plan: GA Disposition: Standard PACU
[2023-12-10] VITALS (10 sets, daily range): BP systolic 98–156; BP diastolic 52–87; PULSE 65–82; RESP 16; TEMP 36.1–37.2; O2SAT 95–100; BMI 34.0
--- NOTE | ~2023-12-10 | FL_ITS ---
CLINICAL INDICATION: Back pain. FINDINGS: Technical assistance and equipment were provided by the Department of Radiology during intraoperative fluoroscopy for L4-5 facetectomy. 1, limited fluoroscopic spot image is submitted. A radiologist was not present during the procedure. The image demonstrates degenerative change with possible minimal grade 1 anterolisthesis at L5-S1. The tip of a surgical device projects posterior to the L4-L5 disc space. The image is available for review on PACS. TOTAL FLUOROSCOPY TIME: 0 minutes. DOSE AREA PRODUCT: 1.0 Gy-cm2 (rodriguez-centimeter squared) FL/FL guidance in OR IMPRESSION: Technical assistance and equipment provided by the Department of Radiology during intraoperative fluoroscopy, as above. Please see operative report for further details.
--- NOTE | 2023-12-10 07:27 | MHC.SHP ---
Pre-Procedural Eval Section A - 24 Hr Update-Section A only Date of Service: 12/10/23 Section B - Complete if H&P > 30 days Chief Complaint: Radiculopathy, lumbar region Allergies: Allergies Allergy/AdvReac Type Severity Reaction Status Date / Time shellfish derived Allergy Severe HIVES Verified 10/06/23 11:40 [SHELLFISH DERIVED] bacitracin Allergy Intermediate Rash Verified 10/06/23 11:40 [From Neosporin ([id number]-gff-[id number])] neomycin Allergy Intermediate Rash Verified 10/06/23 11:40 [From Neosporin (itk-oly-lybjw)] polymyxin B Allergy Intermediate Rash Verified 10/06/23 11:40 [From Neosporin (fba-ufx-ndgmr)] adhesive Allergy Unknown Rash Verified 10/06/23 11:40 povidone-iodine Allergy Hives Verified 11/26/23 13:08 [From Betadine] coffee (Coffea arabica) AdvReac Intermediate Hives Verified 10/06/23 11:40 Review of Systems Sugical H&P ROS: Negative: Constitution, Cardiovascular, Respiratory, Neurological, Psychiatric, Hem-Onc, Allergic/Immunologic, Gastrointestinal, Genitourinary, Musculoskeletal, Integumentary, Endocrine and Eyes/Ears/Nose/Throat Exam Surgical H&P Exam: Not Evaluated: HEENT, Not Evaluated: Heart, Not Evaluated: Lungs, Not Evaluated: Extremities, Not Evaluated: Abdomen, Not Evaluated: Skin and Not Evaluated: Neurological Plan Diagnosis/Plan: Unchanged left L4-5 far lateral microdiskectomy using metrx tube Time Spent With Patient Time: Total time managing care of this patient today _6___ minutes.
[2023-12-10] MEDS: Lactated Ringers 1,000 ML 100 ML IVCONT (11:15)
--- NOTE | 2023-12-10 12:52 | P.OP_ITS ---
Operative Note Operative Note Date of Service: 12/10/23 Narrative: Preop diagnosis: left lumbar disc herniation L4-5, extraforaminal ( far lateral) with lumbar radiculopathy Postop diagnosis: same Procedure: left L4-5 lumbar microdiskectomy, extraforaminal approach with microscope This patient is suffering from left leg pain due to an extraforaminal disc herniation L4-5 compressing the left L4 nerve root. The patient was offered a lumbar microdiskectomy through an extraforaminal approach. The procedure and complications were explained. The patient was consented. The patient was brought to the operating room and endotracheally intubated. The patient was turned in the prone position on Kasi frame. Prepping and draping was done followed by time-out. The lateral border of the L4-5 facet joint was marked on the skin with x-ray. A left paramedian incision was made. The muscle fascia was opened. Sequential dilators were inserted followed by a 18 mm Metrx tube. the lateral border of the L4-5 facet joint as well as the transverse process of L4 and L5 were exposed. The microscope was brought in. The lateral part of facet joint was resected with a high-speed drill. The medial border of the L5 pedicle was identified as well as the foramen. I went into the Kambin's triangle and exposed the intervertebral disc. An annulotomy was done after which with a straight and curved pituitary several fragments of disc herniation were removed. A nerve hook could be easily passed under the L4 nerve root as sign of adequate decompression. Physician pharmacy affairs assistant took over the procedure and performed hemostasis and closure of the incision in 2 layers. Steri-Strips were used to approximate the incision. An Oppsite with tegaderm was used to cover the incision. All sponge and needle counts were correct. The patient was extubated and transported in stable condition to recovery room. Surgeon: Madan Mclean MD Assist: DORA Mehta Anesthesia: general Estimated blood loss: minimal Specimen: none Deposition: Discharge home
--- NOTE | 2023-12-10 12:59 | PM.DS ---
DS: Providers Provider Date of Service: 12/10/23 Primary care physician: Renuka Leon MD DS: Summary Time Attestation Discharge coordination time: Less than 30 minutes Quality: Safe Use of Opioids Does Pt have an Active Cancer Diagnosis on the Problem List?: No Quality: Stroke Does the patient have a stroke diagnosis?: No Physical Exam Vital Signs: Vital Signs: Last Vital Signs Temp 98.9 F 12/10/23 11:04 Pulse 82 12/10/23 11:04 Resp 16 12/10/23 11:04 BP 149/65 H 12/10/23 11:04 Pulse Ox 98 12/10/23 11:04 O2 Del Method Room Air 12/10/23 11:04 BMI result Body Mass Index 34.0 Discharge Plan Discharge Patient Disposition: Home, Self-Care Referrals: Renuka Leon MD [Primary Care Provider] - 1 Week Discharge Medications: New oxycodone 5 mg tablet 5 mg PO Q6H PRN (Reason: severe pain) Qty: 30 0RF Rx Instructions: Partial Fill upon patient request. Continued losartan 100 mg tablet 100 mg PO DAILY 90 Days Qty: 90 2RF gabapentin 300 mg capsule 300 mg PO TID Qty: 90 11RF rosuvastatin [Crestor] 10 mg tablet 10 mg PO BEDTIME Qty: 90 2RF tramadol 50 mg tablet 50 mg PO BID Qty: 60 0RF levothyroxine 175 mcg tablet 175 mcg PO DAILY Rx Instructions: Take 1 tablet every day except for Thursday Discharge Orders: Discharge Order (Routine); Ordered 12/10/23 Ordered By: Rubén Blue Diet: Advance to usual diet Activity on Discharge: As tolerated Activity Restrictions/Additional Instructions: After your spinal surgery we ask you to observe the following restrictions/guidelines: Activity: It is normal to feel some discomfort as you increase your activity, but that will improve with time. We ask you avoid heavy lifting or acitivities that cause pain. As a general rule, 8lbs is a safe limit for lifting right after surgery. Walk as much as you feel comfortable but not to exhaustion. You will feel extra tired the first few days after surgery. Stay well hydrated. It is OK to walk up and down stairs You may return to driving when you are off narcotics (such as vicodin, oxycodone, dilaudid, etc), and you are back to normal functional capacity. If you have any concerns please check with office before driving. Return to work is specific to each patient and each surgery, so please speak with your doctor/PA at first follow up. Please bring paperwork such as FMLA at that time if you need it filled out. Medications: We will give you a short supply of narcotics after surgery (usually one weeks worth). If you need more please call the office but do not use more than prescribed. You will need to give our office 48 hours notice if you need narcotics refilled and we do not fill narcotics on weekends or evenings. If you are on a narcotic, it is a good idea to take a stool softener such as colace or senna to avoid constipation If you take blood thinner such as aspirin, Plavix, Coumadin, Effient, Eliquis etc for conditions such as Afib, DVT, Pulmonary embolus, coronary disease, stents etc please speak with your surgeon about specific details as to when you can resume these medications. You can resume NSAIDs on post op day 1 (eg: Motrin, Naproxen, etc). Follow up: Please call the office, , after surgery to arrange a 3 week follow up for wound check. Wound Care: You may remove your dressing on the first day after surgery. ?You may ?leave open to air. Please do not remove the steri strips underneath. they will fall off on their own in one week. IT IS NORMAL FOR THE WOUND TO OOZE OR BE BLOODY FOR A FEW DAYS AFTER SURGERY. ?IF THIS HAPPENS JUST PLACE NEW DRESSING OVER IT TO AVOID STAINING CLOTHES. You may shower on post op day # 1 We ask that you do not let the water soak the wound. If it does get wet, just towel dry lightly. Please do not scrub your incision or place any type of chemical/ointment on the wound. No tub baths, pools or jacuzzis for one month. If you have any leaking or redness from your wound, or fevers, please call the office.
[2023-12-10] MEDS: oxyCODONE HCl Immed Release 5 MG TABLET PO (14:26)
== END 2023-12-10 16:07 | disposition home or self-care (01) ==
PROVIDERS: PCP Internal Medicine; Visit Provider Neurological Surgery
PROC: (CPT 63056; principal; 2023-12-10 13:30)
DX: M54.16 Radiculopathy, lumbar region (principal); M85.80 Other specified disorders of bone density and structure, unspecified site; M25.552 Pain in left hip; I10 Essential (primary) hypertension; E78.00 Pure hypercholesterolemia, unspecified; Z79.899 Other long term (current) drug therapy; L23.1 Allergic contact dermatitis due to adhesives; Z88.1 Allergy status to other antibiotic agents; Z98.890 Other specified postprocedural states
CPT/HCPCS: 63056; 93005; J0131; J0690; J1100; J2250; J2405; J2704; J3010

== ENCOUNTER → 2023-12-10 10:03 | Outpatient (BNV) | payer MEDICARE, SELFPAY | PROVIDERS: PCP Internal Medicine; Visit Provider Neurological Surgery | DX: M51.16 Intervertebral disc disorders with radiculopathy, lumbar region (principal) | CPT/HCPCS: 63056; 99499 ==

== ENCOUNTER 2023-12-31 14:41 | Outpatient (AMB) | payer MEDICARE, SELFPAY ==
--- NOTE | 2023-12-31 15:33 | A.SPINEOV_ITS ---
Intake Intake Visit Reasons: 1st post op Intake Note: Ms. Magana is here today for 1st post op. Electronic Musical Instrument Repairer Required: No Allergies shellfish derived [SHELLFISH DERIVED] Allergy (Severe, Verified 10/06/23 11:40) HIVES bacitracin [From Neosporin ([id number])] Allergy (Intermediate, Verified 10/06/23 11:40) Rash neomycin [From Neosporin ([id number]-[id number])] Allergy (Intermediate, Verified 10/06/23 11:40) Rash polymyxin B [From Neosporin ([id number])] Allergy (Intermediate, Verified 10/06/23 11:40) Rash adhesive Allergy (Unknown, Verified 10/06/23 11:40) Rash povidone-iodine [From Betadine] Allergy (Verified 11/26/23 13:08) Hives coffee (Coffea arabica) Adverse Reaction (Intermediate, Verified 10/06/23 11:40) Hives Assessment & Plan Assessment & Plan (1) Lumbar radiculopathy: Code(s): M54.16 - Radiculopathy, lumbar region Plan Mrs Magana is about 3 weeks out from her left L4-5 far lateral diskectomy. Unfortunately she has seen no improvement in the leg pain since surgery. If anything maybe slightly worse. She is still having trouble sleeping but during the day she is generally able to get up and move around things seem more manageable. Her wound healed up beautifully. She has been getting back to activity slowly. We discussed activity guidelines, restrictions and expectations after lumbar microdiskectomy. I also reassured her that the compression on the dorsal root ganglion out laterally can be particularly resistant to rapid improvement from decompression so that we should give this at least another few months. If it has not better at that point we will get a new MRI. Aftab Mclean MD, PhD [facility] Coding Level of Care Code Global (16532) Diagnoses Lumbar radiculopathy M54.16
== END 2023-12-31 15:39 | disposition home or self-care (01) ==
PROVIDERS: PCP Internal Medicine; Visit Provider Physician Assistant
DX: M54.16 Radiculopathy, lumbar region (principal)
CPT/HCPCS: 99024

== ENCOUNTER → 2023-12-31 14:41 | Outpatient (BNVA) | payer MEDICARE, SELFPAY | PROVIDERS: PCP Internal Medicine; Visit Provider Physician Assistant | DX: M54.16 Radiculopathy, lumbar region (principal); Z47.89 Encounter for other orthopedic aftercare; Z98.890 Other specified postprocedural states | CPT/HCPCS: 99212 ==

== ENCOUNTER 2023-12-31 15:43 | Outpatient (AMB) | payer MEDICARE, SELFPAY ==
[2023-12-31 15:45] VITALS: BP 140/72; PULSE 76; O2SAT 96; BMI 32.8
--- NOTE | 2023-12-31 15:45 | MHC.PC.OV ---
Vital Signs 12/31/23 15:45 Height 5 ft 6 in Weight 203 lb BMI 32.8 BP 140/72 H Blood Pressure Location Lt brachial Position Sitting Pulse 76 Pulse Source Pulse Oximeter Pulse Oximetry (%) 96 Oxygen Delivery Method Room Air Intake Visit Reasons: 3 month f/u Intake Note: Patient is here to follow up on 3 months Solid State Tester Required: No Allergies shellfish derived [SHELLFISH DERIVED] Allergy (Severe, Verified 12/31/23 15:45) HIVES bacitracin [From Neosporin ([id number])] Allergy (Intermediate, Verified 12/31/23 15:45) Rash neomycin [From Neosporin (mst-rtn-iyocc)] Allergy (Intermediate, Verified 12/31/23 15:45) Rash polymyxin B [From Neosporin ([id number]-pll-omuon)] Allergy (Intermediate, Verified 12/31/23 15:45) Rash adhesive Allergy (Unknown, Verified 12/31/23 15:45) Rash povidone-iodine [From Betadine] Allergy (Verified 12/31/23 15:45) Hives coffee (Coffea arabica) Adverse Reaction (Intermediate, Verified 12/31/23 15:45) Hives Medication List - Last Reconciled 12/31/23 by Renuka Leon MD gabapentin 300 mg PO TID levothyroxine 175 mcg PO DAILY losartan 100 mg PO DAILY 90 days rosuvastatin (Crestor) 10 mg PO BEDTIME tramadol 50 mg PO BID Tobacco use date assessed: 12/31/23 Fall risk assessment: No Falls in past year Last assessed Fall Risk: 12/31/23 HPI 3 month f/u HPI Details 73-year-old obese female with lumbar degenerative disc disease sent to neurosurgeon. Hypothyroid hypertension hypercholesterolemia and impaired glucose tolerance last seen in September 2023. Patient's colonoscopy is up-to-date mammogram is up-to-date bone density is due but this has been negative. Patient has followed up post L4-L5 left lateral diskectomy. From the notes no relief. [facility], LAT[facility] Medical History Back pain Arthritis Numbness Fatty liver Lumbar degenerative disc disease Osteoarthritis Peripheral vascular disease Obesity (BMI 30-39.9) Vitamin D deficiency Hypothyroid Elevated cholesterol HTN (hypertension) Surgical History Hx of decompressive lumbar laminectomy History of foot surgery History of bunionectomy Hx of tubal ligation Hx laparoscopic cholecystectomy History of carpal tunnel release Hx of shoulder surgery H/O colonoscopy Family History Father No problems noted. Mother Breast cancer Hypertension CVD (cardiovascular disease) Stroke Bladder cancer Maternal Aunt Breast cancer Maternal Grandmother Breast cancer Brother No problems noted. Sister No problems noted. Daughter No problems noted. Daughter No problems noted. 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 Cognitive needs: No Hearing needs: No Vision needs: Yes Questionnaire Thrive Questionnaire Date Thrive assessed: 12/31/23 I am a: Patient What is your living situation today?: I have a steady place to live Within the past 12 months, did the food you bought not last and you didn't have the money to get more?: Never true Within the past 12 months, did you worry whether your food would run out before you got money to buy more?: Never true Do you have trouble paying for medicines?: No Do you have trouble getting transportation to medical appointments?: No Do you have trouble paying your heating and electricity bill?: No Do you have trouble taking care of your child, family member or friend?: No Do you have trouble with day-to-day activities such as bathing, preparing meals, shopping, managing finances, etc.?: No Are you currently unemployed and looking for a job?: No Are you interested in more education?: No Please select the resources that you would like help with: None THRIVE Score: 0 AUDIT C Alcohol Use Questionnaire (AUDIT-C) 1. How often do you have a drink containing alcohol?: Monthly or less 2. How many drinks containing alcohol do you have on a typical day when you are drinking?: 1 or 2 3. How often do you have six or more drinks on one occasion?: Never Total Score: 1 Score Reviewed/Action Taken: No HIMA-7 AMB Questionnaire HIMA-7 Date HIMA - 7 assessed: 12/31/23 Source: Developed by Drs. Hollis Pierson, Vida Reyna, Nick Hicks and colleagues, with an educational cisco from [employer]. Physical exam (Primary Care) Vital Signs: Last Vital Signs Pulse 76 12/31/23 15:45 BP 140/72 H 12/31/23 15:45 Pulse Ox 96 12/31/23 15:45 Oxygen Delivery Method Room Air 12/31/23 15:45 BMI result Body Mass Index 32.8 Tobacco/Smoking Status: Tobacco use Status Tobacco use date assessed 12/31/23 12/31/23 15:46 Patient Tobacco Use Status Former Tobacco user 12/31/23 15:46 Tobacco use type Cigarette 12/31/23 15:46 e-Cigarette/Vaping Use Never Used 12/31/23 15:46 Thrive Assessment: Date of Thrive Assessment Date Thrive assessed 12/31/23 12/31/23 15:46 Const General: alert; No acute distress Eyes Conjunctivae: conjunctivae normal Resp Auscultation: clear to auscultation bilaterally Cardio Rate: regular rate Rhythm: regular rhythm GI Inspection: Yes normal to inspection Extrem General: Yes normal to inspection and No edema Assessment and Plan Assessment & Plan (1) Lumbar radiculopathy: Comment: 08/04/2022 L3-4, L4-5 decompressive laminectomy and medial facetectomy by Dr. Lundberg. MRI February 2023MRI done showing L2-L3 mild to moderate spinal canal stenosis and compression of the exiting L2 right nerve root L4-L5 progressive moderate to severe left neural foraminal stenosis with mild compression of the exiting left L4 nerve L3-L4 posterior decompression without spinal canal stenosis or foraminal nerve root compression 12/10/2023 L4-5 left lumbar micro diskectomy extraforaminal approach Code(s): M54.16 - Radiculopathy, lumbar region Plan: 12/10/2023 L4-5 left lumbar micro diskectomy extraforaminal approach patient continues to follow-up with neurosurgeon (2) Obesity (BMI 30-39.9): Code(s): E66.9 - Obesity, unspecified Plan: Diet and exercise (3) Hypothyroid: Code(s): E03.9 - Hypothyroidism, unspecified Qualifiers: Hypothyroidism type: acquired Qualified Code(s): E03.9 - Hypothyroidism, unspecified Plan: Continue with present thyroid medication (4) HTN (hypertension): Code(s): I10 - Essential (primary) hypertension Qualifiers: Hypertension type: essential hypertension Qualified Code(s): I10 - Essential (primary) hypertension Plan: Continue with blood pressure medication. Decrease salt intake and exercise on losartan 100 mg once a day (5) Elevated cholesterol: Code(s): E78.00 - Pure hypercholesterolemia, unspecified Plan: Avoid fried foods, chicken skin, eggs, butter margarine, pastries and meat. Be it pork or beef they have a lot of cholesterol LDL goal of less than 130 and triglyceride of less than 150 on rosuvastatin 10 mg once a day (6) Impaired fasting glucose: Code(s): R73.01 - Impaired fasting glucose Plan: Decrease the amount of carbohydrate intake, pasta, bread, rice and potatoes are all sugar and that is aside from all the sweet stuff, remember that fruits are good but they are Sweet also. Orders: Orders Comprehensive Met. Panel Today R73.01 - Impaired fasting glucose Thyroid Stimulating Hormone Today E03.9 - Hypothyroidism, unspecified Lipid Panel Today E78.00 - Pure hypercholesterolemia, unspecified Hemoglobin A1c Today R73.01 - Impaired fasting glucose Free T4 (Free Thyroxine) Today E03.9 - Hypothyroidism, unspecified Medications: Refilled tramadol 50 mg PO BID 60 tabs 0RF M51.36 - Other intervertebral disc degeneration, lumbar region Coding Level of Care Code Est Pt Level 4 (50083) Diagnoses Lumbar radiculopathy M54.16 Obesity (BMI 30-39.9) E66.9 Acquired hypothyroidism E03.9 Hypothyroidism type: acquired Essential hypertension I10 Hypertension type: essential hypertension Elevated cholesterol E78.00 Impaired fasting glucose R73.01
== END 2023-12-31 16:19 | disposition home or self-care (01) ==
PROVIDERS: PCP Internal Medicine; Visit Provider Internal Medicine
DX: M54.16 Radiculopathy, lumbar region (principal); Z68.32 Body mass index [BMI] 32.0-32.9, adult; E66.9 Obesity, unspecified; E03.9 Hypothyroidism, unspecified; I10 Essential (primary) hypertension; E78.00 Pure hypercholesterolemia, unspecified; R73.01 Impaired fasting glucose
CPT/HCPCS: 99214

== ENCOUNTER 2024-02-11 13:47 | Outpatient (AMB) | payer MEDICARE, SELFPAY ==
--- NOTE | 2024-02-11 13:58 | A.SPINEOV_ITS ---
Intake Visit Reasons: follow up from sx 12/10/23 Intake Note: Ms. Magana is here for a f/u from surgery 12/10/23. Subgrade Roller Operator Required: No Allergies shellfish derived [SHELLFISH DERIVED] Allergy (Severe, Verified 12/31/23 15:45) HIVES bacitracin [From Neosporin (hzy-dcu-[id number])] Allergy (Intermediate, Verified 12/31/23 15:45) Rash neomycin [From Neosporin (tdw-skq-aqhia)] Allergy (Intermediate, Verified 12/31/23 15:45) Rash polymyxin B [From Neosporin ([id number]-vrp-brgti)] Allergy (Intermediate, Verified 12/31/23 15:45) Rash adhesive Allergy (Unknown, Verified 12/31/23 15:45) Rash povidone-iodine [From Betadine] Allergy (Verified 12/31/23 15:45) Hives coffee (Coffea arabica) Adverse Reaction (Intermediate, Verified 12/31/23 15:45) Hives Assessment & Plan Assessment & Plan (1) Status post lumbar spine surgery for decompression of spinal cord: Code(s): Z98.890 - Other specified postprocedural states Category: Surgical Plan: Procedure: left L4-5 lumbar microdiskectomy Emani comes in today for a subsequent follow-up visit. Overall she has been doing well since her surgery. She does report a nagging/ gnawing pain in her low back that seems to flare up with extensive walking/ambulation. This is generally short-lived and resolves on its own. In addition to this she reports continuation of her feeling of numbness/reduced sensation over her left anterior tibialis. Thankfully, her left-sided radicular pain has for the most part resol dilcia. She states she feels she has been improving since she last saw DORA Mejia. No new neurological deficits. Patient is able to ambulate well, rises from a seated position without difficulty. Left posterior incision site is closed and well healed. As stated during her previous office evaluation, she will likely need the tincture of time for her symptoms to resolve. Her healing course has been slow but consistent. I would like to have her return to clinic in 2 months for a subsequent evaluation, to ensure that the post-ambulation pain continues to improve. Rubén Mclean MD,PhD [facility] Coding Level of Care Code Global (15701) Diagnoses Status post lumbar spine surgery for decompression of spinal cord Z98.890
== END 2024-02-11 14:10 | disposition home or self-care (01) ==
PROVIDERS: PCP Internal Medicine; Visit Provider Physician Assistant
DX: Z98.890 Other specified postprocedural states (principal)
CPT/HCPCS: 99024

== ENCOUNTER → 2024-02-11 13:47 | Outpatient (BNVA) | payer MEDICARE, SELFPAY | PROVIDERS: PCP Internal Medicine; Visit Provider Physician Assistant | DX: Z48.89 Encounter for other specified surgical aftercare (principal); Z98.890 Other specified postprocedural states | CPT/HCPCS: 99212 ==

== ENCOUNTER 2024-04-11 10:59 | Outpatient (AMB) | payer MEDICARE, SELFPAY ==
--- NOTE | 2024-04-11 11:12 | HO.SPINEOV ---
Intake Visit Reasons: 2 months for a subsequent evaluation Intake Note: Ms. Magana is here today for a 2 month subsequent evaluation. Skatesman Required: No Allergies shellfish derived [SHELLFISH DERIVED] Allergy (Severe, Verified 12/31/23 15:45) HIVES bacitracin [From Neosporin ([id number]-[id number])] Allergy (Intermediate, Verified 12/31/23 15:45) Rash neomycin [From Neosporin (iql-mah-lctbw)] Allergy (Intermediate, Verified 04/11/24 11:18) Rash polymyxin B [From Neosporin (msr-npj-vifsc)] Allergy (Intermediate, Verified 12/31/23 15:45) Rash adhesive Allergy (Unknown, Verified 12/31/23 15:45) Rash povidone-iodine [From Betadine] Allergy (Verified 12/31/23 15:45) Hives coffee (Coffea arabica) Adverse Reaction (Intermediate, Verified 12/31/23 15:45) Hives Assessment & Plan Assessment & Plan (1) Status post lumbar spine surgery for decompression of spinal cord: Code(s): Z98.890 - Other specified postprocedural states Category: Medical Plan Mrs Magana is a little over 4 months out from her lumbar microdiskectomy. She has had significant relief of her preoperative symptoms but still occasionally will get some pain that goes down into her lateral tibia and her anterior tibial region. It feels a bit like an electrical sensation. Otherwise she is doing okay. The symptoms do not keep her from doing anything. She thinks it is just something she is going to have to live with. I suspect she is probably right. I told her if it continues to escalate or gets to a point where it is affecting her quality of life she can give me a call and we can reassess and possibly get an MRI. She has no restrictions at this point and can carry on with life as tolerated. Total amount of time spent in this visit was 20 minutes in discussion of symptoms, surgical recovery and subsequent plan of care Aftab Mclean MD,PhD [facility] Coding Level of Care Code Est Pt Level 3 (35737) Diagnoses Status post lumbar spine surgery for decompression of spinal cord Z98.890
== END 2024-04-11 11:52 | disposition home or self-care (01) ==
PROVIDERS: PCP Internal Medicine; Visit Provider Physician Assistant
DX: Z98.890 Other specified postprocedural states (principal)
CPT/HCPCS: 99213

== ENCOUNTER → 2024-04-11 10:59 | Outpatient (BNVA) | payer MEDICARE, SELFPAY | PROVIDERS: PCP Internal Medicine; Visit Provider Physician Assistant | DX: M79.669 Pain in unspecified lower leg (principal); Z98.890 Other specified postprocedural states | CPT/HCPCS: 99212 ==

== ENCOUNTER 2024-04-15 08:58 | Outpatient (REF) | payer MEDICARE, SELFPAY ==
[2024-04-15 10:31] LABS: Estimated Average Glucose 120 mg/dL; Hemoglobin A1c % 5.8 % (<6.0)
[2024-04-15 10:43] LABS: Alanine Aminotransferase 14 U/L (0-31); Albumin Level 3.9 g/dL (3.5-5.0); Alkaline Phosphatase 75 U/L (39-117); Anion Gap 12 (12-20); Aspartate Amino Transferase 13 U/L (5-31); Bilirubin Total 0.5 mg/dL (0.0-1.0); Blood Urea Nitrogen 10 mg/dL (9-16); Calcium 9.6 mg/dL (8.4-10.2); Carbon Dioxide 26 mmol/L (22-29); Chloride 110 mmol/L (96-108); Cholesterol 176 mg/dL (<200); Estimated Glomerular Filt Rate > 60; Glucose Random 103 mg/dL (60-115); HDL Cholesterol 42 mg/dL (>40); LDL Cholesterol Calculated 91 mg/dL (<100); Sodium 144 mmol/L (135-145); Total Protein 6.5 g/dL (6.5-8.0); Triglycerides 219 mg/dL (<150)
[2024-04-15 11:06] LABS: Free T4 (Free Thyroxine) 1.28 ng/dL (0.71-1.85); Thyroid Stimulating Hormone 1.56 uIU/mL (0.32-4.0)
== END 2024-04-15 08:59 | disposition home or self-care (01) ==
LOC: HO.LAB 08:58
PROVIDERS: PCP Internal Medicine; Visit Provider Internal Medicine
DX: R73.01 Impaired fasting glucose (principal); E78.00 Pure hypercholesterolemia, unspecified; E03.9 Hypothyroidism, unspecified
CPT/HCPCS: 36415; 80053; 80061; 83036; 84439; 84443

== ENCOUNTER 2024-04-25 14:01 | Outpatient (AMB) | payer MEDICARE, SELFPAY ==
[2024-04-25 14:03] VITALS: BP 148/72; PULSE 76; O2SAT 98; BMI 33.9
--- NOTE | 2024-04-25 14:03 | A.OFFPC_ITS ---
Vital Signs 04/25/24 14:03 Height 5 ft 6 in Weight 210 lb 0.4 oz BMI 33.9 BP 148/72 H Blood Pressure Location Lt brachial Position Sitting Pulse 76 Pulse Source Pulse Oximeter Pulse Oximetry (%) 98 Oxygen Delivery Method Room Air Intake Visit Reasons: low back pain, IGT, Community Engagement Coordinator Required: No Allergies shellfish derived [SHELLFISH DERIVED] Allergy (Severe, Verified 04/25/24 14:03) HIVES bacitracin [From Neosporin (maq-ble-sncmu)] Allergy (Intermediate, Verified 04/25/24 14:03) Rash hydrochlorothiazide Allergy (Intermediate, Unverified 04/25/24 14:45) cramp neomycin [From Neosporin (yhc-fqw-xbsad)] Allergy (Intermediate, Verified 04/25/24 14:03) Rash polymyxin B [From Neosporin ([id number]-jrl-srtxx)] Allergy (Intermediate, Verified 04/25/24 14:03) Rash adhesive Allergy (Unknown, Verified 04/25/24 14:03) Rash povidone-iodine [From Betadine] Allergy (Verified 04/25/24 14:03) Hives coffee (Coffea arabica) Adverse Reaction (Intermediate, Verified 04/25/24 14:03) Hives Tobacco use date assessed: 04/25/24 Fall risk assessment: No Falls in past year Last assessed Fall Risk: 04/25/24 Dental Screening Dental Screen Date: 04/25/24 HPI low back pain, IGT, HPI Details 73-year-old obese female with lumbar rad iculopathy hypothyroid hypertension hypercholesterolemia impaired glucose tolerance last seen in 12/30/2023. Patient's colonoscopy is up-to-date mammogram is up-to-date bone density has been normal. Patient has seen neurosurgeon status post lumbar surgery in for decompression of the spinal cord 4 months out doing lumbar Ms. Microdiskectomy with relief but occasional pain still [facility] Medical History Back pain Arthritis Numbness Fatty liver Lumbar degenerative disc disease Osteoarthritis Peripheral vascular disease Obesity (BMI 30-39.9) Vitamin D deficiency Hypothyroid Elevated cholesterol HTN (hypertension) Surgical History Hx of decompressive lumbar laminectomy History of foot surgery History of bunionectomy Hx of tubal ligation Hx laparoscopic cholecystectomy History of carpal tunnel release Hx of shoulder surgery H/O colonoscopy Family History Father No problems noted. Mother Breast cancer Hypertension CVD (cardiovascular disease) Stroke Bladder cancer Maternal Aunt Breast cancer Maternal Grandmother Breast cancer Brother No problems noted. Sister No problems noted. Daughter No problems noted. Daughter No problems noted. 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 Cognitive needs: No Hearing needs: No Vision needs: Yes Questionnaire Thrive Questionnaire Date Thrive assessed: 12/31/23 I am a: Patient What is your living situation today?: I have a steady place to live Within the past 12 months, did the food you bought not last and you didn't have the money to get more?: Never true Within the past 12 months, did you worry whether your food would run out before you got money to buy more?: Never true Do you have trouble paying for medicines?: No Do you have trouble getting transportation to medical appointments?: No Do you have trouble paying your heating and electricity bill?: No Do you have trouble taking care of your child, family member or friend?: No Do you have trouble with day-to-day activities such as bathing, preparing meals, shopping, managing finances, etc.?: No Are you currently unemployed and looking for a job?: No Are you interested in more education?: No Please select the resources that you would like help with: None THRIVE Score: 0 AUDIT C Alcohol Use Questionnaire (AUDIT-C) 1. How often do you have a drink containing alcohol?: Monthly or less 2. How many drinks containing alcohol do you have on a typical day when you are drinking?: 1 or 2 3. How often do you have six or more drinks on one occasion?: Never Total Score: 1 Score Reviewed/Action Taken: No HIMA-7 AMB Questionnaire HIMA-7 Date HIMA - 7 assessed: 12/31/23 Source: Developed by Drs. Hollis Pierson, Viad Reyna, Nick Hicks and colleagues, with an educational cisco from [employer]. Physical exam (Primary Care) Vital Signs: Last Vital Signs Pulse 76 04/25/24 14:03 BP 148/72 H 04/25/24 14:03 Pulse Ox 98 04/25/24 14:03 Oxygen Delivery Method Room Air 04/25/24 14:03 BMI result Body Mass Index 33.9 Tobacco/Smoking Status: Tobacco use Status Tobacco use date assessed 04/25/24 04/25/24 14:04 Patient Tobacco Use Status Former Tobacco user 04/25/24 14:04 Tobacco use type Cigarette 04/25/24 14:04 e-Cigarette/Vaping Use Never Used 04/25/24 14:04 Thrive Assessment: Date of Thrive Assessment Date Thrive assessed 12/31/23 04/25/24 14:04 Const General: alert; No acute distress Eyes Conjunctivae: conjunctivae normal Resp Auscultation: clear to auscultation bilaterally Cardio Rate: regular rate Rhythm: regular rhythm GI Inspection: Yes normal to inspection Extrem General: Yes normal to inspection and No edema Assessment and Plan Assessment & Plan (1) Lumbar radiculopathy: Comment: 08/04/2022 L3-4, L4-5 decompressive laminectomy and medial facetectomy by Dr. Lundberg. MRI February 2023MRI done showing L2-L3 mild to moderate spinal canal stenosis and compression of the exiting L2 right nerve root L4-L5 progressive moderate to severe left neural foraminal stenosis with mild compression of the exiting left L4 nerve L3-L4 posterior decompression without spinal canal stenosis or foraminal nerve root compression 12/10/2023 L4-5 left lumbar micro diskectomy extraforaminal approach Code(s): M54.16 - Radiculopathy, lumbar region Plan: 12/01/2023 status post decompression follows up with neurosurgeon (2) Impaired glucose tolerance: Code(s): R73.02 - Impaired glucose tolerance (oral) Plan: Decrease the amount of carbohydrate intake, pasta, bread, rice and potatoes are all sugar and that is aside from all the sweet stuff, remember that fruits are good but they are Sweet also. (3) HTN (hypertension): Code(s): I10 - Essential (primary) hypertension Qualifiers: Hypertension type: essential hypertension Qualified Code(s): I10 - Essential (primary) hypertension Plan: Continue with blood pressure medication. Decrease salt intake and exercise on losartan 100 mg once a day (4) Obesity (BMI 30-39.9): Code(s): E66.9 - Obesity, unspecified Plan: Diet and exercise (5) Hypothyroid: Code(s): E03.9 - Hypothyroidism, unspecified Qualifiers: Hypothyroidism type: acquired Qualified Code(s): E03.9 - Hypothyroidism, unspecified Plan: Continue with thyroid medication (6) Elevated cholesterol: Code(s): E78.00 - Pure hypercholesterolemia, unspecified Plan: Avoid fried foods, chicken skin, eggs, butter margarine, pastries and meat. Be it pork or beef they have a lot of cholesterol on rosuvastatin 10 mg at bedtime LDL goal of less than 130 Medications: New amlodipine 2.5 mg PO DAILY 30 tabs 3RF I10 - Essential (primary) hypertension Refilled tramadol 50 mg PO BID 60 tabs 0RF M51.36 - Other intervertebral disc degeneration, lumbar region Coding Level of Care Code Est Pt Level 4 (25082) Diagnoses Lumbar radiculopathy M54.16 Impaired glucose tolerance R73.02 Essential hypertension I10 Hypertension type: essential hypertension Obesity (BMI 30-39.9) E66.9 Acquired hypothyroidism E03.9 Hypothyroidism type: acquired Elevated cholesterol E78.00
== END 2024-04-25 14:51 | disposition home or self-care (01) ==
PROVIDERS: PCP Internal Medicine; Visit Provider Internal Medicine
DX: M54.16 Radiculopathy, lumbar region (principal); E66.9 Obesity, unspecified; Z68.33 Body mass index [BMI] 33.0-33.9, adult; R73.02 Impaired glucose tolerance (oral); I10 Essential (primary) hypertension; E03.9 Hypothyroidism, unspecified; E78.00 Pure hypercholesterolemia, unspecified
CPT/HCPCS: 99214

== ENCOUNTER 2024-07-21 08:50 | Outpatient (AMB) | payer MEDICARE, SELFPAY ==
[2024-07-21 08:51] VITALS: BP 142/78; PULSE 77; O2SAT 96; BMI 34.4
--- NOTE | 2024-07-21 08:51 | A.OFFPC_ITS ---
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 Required: No Accompanied by: Self / Same As Patient Allergies shellfish derived [SHELLFISH DERIVED] Allergy (Severe, Verified 07/21/24 08:54) HIVES bacitracin [From Neosporin ([id number])] Allergy (Intermediate, Verified 07/21/24 08:54) Rash hydrochlorothiazide Allergy (Intermediate, Unverified 07/21/24 08:54) cramp neomycin [From Neosporin ([id number])] Allergy (Intermediate, Verified 07/12 08:54) Rash polymyxin B [From Neosporin ([id number])] Allergy (Intermediate, Verified 07/21/24 08:54) Rash adhesive Allergy (Unknown, Verified 07/21/24 08:54) Rash povidone-iodine [From Betadine] Allergy (Verified 07/21/24 08:54) Hives coffee (Coffea arabica) Adverse Reaction (Intermediate, Verified 07/21/24 08:54) Hives Medication List - Last Reconciled 07/21/24 by Renuka Leon MD amlodipine 2.5 mg PO DAILY cholecalciferol (vitamin D3) 50 mcg PO DAILY levothyroxine 175 mcg PO DAILY losartan 100 mg PO DAILY 90 days multivitamin 1 tab PO DAILY rosuvastatin 10 mg PO BEDTIME tramadol 50 mg PO BID Tobacco use date assessed: 04/25/24 Fall risk assessment: No Falls in past year Last assessed Fall Risk: 07/21/24 Dental Screening Dental Screen Date: 04/25/24 HPI Annual Exam HPI Details 74-year-old obese female with a history of lumbar radiculopathy status post decompression in November 2023 having impaired glucose tolerance hypertension hypothyroid hypercholesterolemia last seen in April 2024. Patient is up-to-date with colonoscopy in 2019 mammogram up-to-date bone density normal last 12/29/2021. complains of cough PFSH Medical History (Updated 07/21/24 @ 09:38 by Renuka Leon MD) Osteoarthritis Impaired fasting glucose Back pain Arthritis Numbness Fatty liver Lumbar degenerative disc disease Peripheral vascular disease Obesity (BMI 30-39.9) Vitamin D deficiency Hypothyroid Elevated cholesterol HTN (hypertension) Surgical History (Updated 02/11/24 @ 14:07 by DORA Mehta) Hx of decompressive lumbar laminectomy History of foot surgery History of bunionectomy Hx of tubal ligation Hx laparoscopic cholecystectomy History of carpal tunnel release Hx of shoulder surgery H/O colonoscopy Family History Father No problems noted. Mother Breast cancer Hypertension CVD (cardiovascular disease) Stroke Bladder cancer Maternal Aunt Breast cancer Maternal Grandmother Breast cancer Brother No problems noted. Sister No problems noted. Daughter No problems noted. Daughter No problems noted. 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 1. Little interest or pleasure in doing things: not at all 2. Feeling down, depressed, or hopeless: not at all 3. Trouble falling or staying asleep, or sleeping too much: not at all 4. Feeling tired or having little energy: not at all 5. Poor appetite or overeating: not at all 6. Feeling bad about yourself - or that you are a failure or have let yourself or your family down: not at all 7. Trouble concentrating on things, such as reading the newspaper or watching television: not at all 8. Moving or speaking so slowly that other people could have noticed. Or the opposite - being so fidgety or restless that you have been moving around a lot more than usual: not at all 9. Thoughts that you would be better off or of hurting yourself in some way: not at all Total score: 0 Source: Developed by Drs. Hollis Pierson, Vida Reyna, Nick Hicks and colleagues, with an educational csico from [employer]. Thrive Questionnaire Date Thrive assessed: 07/14/24 I am a: Patient What is your living situation today?: I have a steady place to live Within the past 12 months, did the food you bought not last and you didn't have the money to get more?: Never true Within the past 12 months, did you worry whether your food would run out before you got money to buy more?: Never true Do you have trouble paying for medicines?: No Do you have trouble getting transportation to medical appointments?: No Do you have trouble paying your heating and electricity bill?: No Do you have trouble taking care of your child, family member or friend?: No Do you have trouble with day-to-day activities such as bathing, preparing meals, shopping, managing finances, etc.?: No Are you currently unemployed and looking for a job?: No Are you interested in more education?: No Please select the resources that you would like help with: None Currently or been in a relationship where the following occur: No concerns reported THRIVE Score: 0 AUDIT C Alcohol Use Questionnaire (AUDIT-C) 1. How often do you have a drink containing alcohol?: Monthly or less 2. How many drinks containing alcohol do you have on a typical day when you are drinking?: 1 or 2 3. How often do you have six or more drinks on one occasion?: Never Total Score: 1 HIMA-7 AMB Questionnaire HIMA-7 Date HIMA - 7 assessed: 12/31/23 Feeling nervous, anxious, or on edge: 0 = Not at all Not being able to stop or control worryin = Not at all Worrying too much about different things: 0 = Not at all Trouble relaxin = Not at all Being so restless that it is hard to sit still: 0 = Not at all Becoming easily annoyed or irritable: 0 = Not at all Feeling afraid as if something awful might happen: 0 = Not at all Total HIMA-7 score (0-4 normal; 5-9 mild; 10-14 moderate; 15-21 severe): 0 Source: Developed by Drs. Hollis Pierson, Vida Reyna, Nick Hicks and colleagues, with an educational cisco from [employer]. Review of Systems Const Denies poor appetite and Denies weakness Eyes Denies no additional complaints ENT Reports Normal hearing present, Denies dizziness, Denies nasal congestion, Denies tinnitus and Denies sore throat Card Denies chest pain, Denies syncope, Denies rapid heart rate and Denies dyspnea Resp Denies cough and Denies dyspnea GI Denies change in stool character, Reports constipation, Denies diarrhea, Denies nausea and Denies vomiting Denies urinary frequency, Denies difficulty voiding and Denies dysuria Neuro Reports Normal hearing present, Denies confusion, Denies dizziness, Denies syncope and Denies weakness Psych Denies confusion Physical exam (Primary Care) Vital Signs: Last Vital Signs Pulse 77 07/21/24 08:51 BP 142/78 H 07/21/24 08:51 Pulse Ox 96 07/21/24 08:51 Oxygen Delivery Method Room Air 07/21/24 08:51 BMI result Body Mass Index 34.4 Tobacco/Smoking Status: Tobacco use Status Tobacco use date assessed 04/25/24 07/21/24 08:57 Patient Tobacco Use Status Former Tobacco user 07/21/24 08:57 Tobacco use type Cigarette 07/21/24 08:57 e-Cigarette/Vaping Use Never Used 07/21/24 08:57 PHQ-9: PHQ-9 Score PHQ-9: Total score 0 07/21/24 08:57 Thrive Assessment: Date of Thrive Assessment Date Thrive assessed 07/14/24 07/21/24 08:57 Currently or been in a relationship where the following occur: No concerns reported Const General: alert and awake; No confusion Orientation/consciousness: No confusion HENMT Head: Yes normocephalic Ears: external ears normal and TM's normal bilaterally Face and sinus: Yes normal facial exam Mouth: moist mucous membranes Throat: Yes tonsils normal Eyes Conjunctivae: conjunctivae normal Pupils: Equal, round and reactive pupils present and Pupil accommodation reflex normal Direct Ophthalmoscopy: normal light reflex Neck Neck: No lymphadenopathy Thyroid: Thyroid normal Chest Chest palpation & inspection: normal inspection of the chest Resp Effort & Inspection: normal respiratory effort and no audible wheezes Auscultation: clear to auscultation bilaterally, no crackles, no wheezes and lung sounds not diminished Cardio Rate: regular rate Rhythm: regular rhythm Peripheral pulses: radial pulses present and dorsalis pedis present GI Other: Declined rectal Palpation (GI): no masses Auscultation: normal bowel sounds and normoactive bowel sounds Rectal Exam - Female: deferred Skin General skin exam: no rashes or lesions noted Rashes: no rashes Neuro General: deep tendon reflexes 2+ bilaterally and No confusion Cranial nerves: Yes Equal, round and reactive pupils present, Yes Midline tongue present, Yes Normal hearing present and Yes Ability to bilaterally elevate shoulders present Cognition (Neuro): normal cognition Gait exam (Neuro): Normal gait present Motor exam (neuro): 5/5 motor strength present throughout Deep tendon reflexes (DTR's): Right brachioradialis reflex intensity grade: 2+, Left brachioradialis reflex intensity grade: 2+, Right patellar reflex intensity grade: 2+ and Left patellar reflex intensity grade: 2+ Extrem General: No edema Coding Level of Care Code Est Pt Prev Care >65y(31448) Diagnoses Annual physical exam Z00.00 Impaired glucose tolerance R73.02 Lumbar radiculopathy M54.16 Osteopenia, unspecified location M85.80 Osteopenia location: unspecified Elevated cholesterol E78.00 Essential hypertension I10 Hypertension type: essential hypertension Obesity (BMI 30-39.9) E66.9 Acquired hypothyroidism E03.9 Hypothyroidism type: acquired Chronic cough R05.3 Cough type: chronic Assessment & Plan Assessment & Plan (1) Annual physical exam: Code(s): Z00.00 - Encounter for general adult medical examination without abnormal findings Category: Medical Plan: Patient is advised to eat healthy, keep well hydrated, keep active and have adequate sleep. (2) Impaired glucose tolerance: Code(s): R73.02 - Impaired glucose tolerance (oral) Category: Medical Plan: Decrease the amount of carbohydrate intake, pasta, bread, rice and potatoes are all sugar and that is aside from all the sweet stuff, remember that fruits are good but they are Sweet also. (3) Lumbar radiculopathy: Comment: 08/04/2022 L3-4, L4-5 decompressive laminectomy and medial facetectomy by Dr. Lundberg. MRI February 2023MRI done showing L2-L3 mild to moderate spinal canal stenosis and compression of the exiting L2 right nerve root L4-L5 progressive moderate to severe left neural foraminal stenosis with mild compression of the exiting left L4 nerve L3-L4 posterior decompression without spinal canal stenosis or foraminal nerve root compression 12/10/2023 L4-5 left lumbar micro diskectomy extraforaminal approach Code(s): M54.16 - Radiculopathy, lumbar region Category: Medical Plan: Continue to keep active (4) Osteopenia: Comment: December 2021 Code(s): M85.80 - Other specified disorders of bone density and structure, unspecified site Category: Medical Qualifiers: Osteopenia location: unspecified Qualified Code(s): M85.80 - Other specified disorders of bone density and structure, unspecified site Plan: Discussed about calcium and vitamin-D and keeping active bone density requested (5) Elevated cholesterol: Code(s): E78.00 - Pure hypercholesterolemia, unspecified Category: Medical Plan: Avoid fried foods, chicken skin, eggs, butter margarine, pastries and meat. Be it pork or beef they have a lot of cholesterol on rosuvastatin 10 mg at bedtime. Noted elevated triglyceride still. (6) HTN (hypertension): Code(s): I10 - Essential (primary) hypertension Category: Medical Qualifiers: Hypertension type: essential hypertension Qualified Code(s): I10 - Essential (primary) hypertension Plan: Continue with blood pressure medication. Decrease salt intake and exercise losartan 100 mg once a day and amlodipine 2.5 mg once a day (7) Obesity (BMI 30-39.9): Code(s): E66.9 - Obesity, unspecified Category: Medical Plan: Diet and exercise (8) Hypothyroid: Code(s): E03.9 - Hypothyroidism, unspecified Category: Medical Qualifiers: Hypothyroidism type: acquired Qualified Code(s): E03.9 - Hypothyroidism, unspecified Plan: Continue with thyroid medication (9) Cough: Code(s): R05.9 - Cough, unspecified Category: Medical Qualifiers: Cough type: chronic Qualified Code(s): R05.3 - Chronic cough Plan: requested a chest xray but did discuss Allergy as the most common reason Orders: Orders XR DEXA axial skeleton Today M81.0 - Age-related osteoporosis without current pathological fracture, M85.80 - Other specified disorders of bone density and structure, unspecified site XR chest 2V Today R05.9 - Cough, unspecified Free T4 (Free Thyroxine) 3 Months R73.02 - Impaired glucose tolerance (oral) Thyroid Stimulating Hormone 3 Months R73.02 - Impaired glucose tolerance (oral) Vitamin B12 and Folate 3 Months R73.02 - Impaired glucose tolerance (oral) Complete Blood Count Auto Diff 3 Months R73.02 - Impaired glucose tolerance (oral) Comprehensive Met. Panel 3 Months R73.02 - Impaired glucose tolerance (oral) Lipid Panel 3 Months E78.00 - Pure hypercholesterolemia, unspecified, R73.02 - Impaired glucose tolerance (oral) Vitamin D 25-OH Total 3 Months R73.02 - Impaired glucose tolerance (oral) UA CC w/rflx Micro + Cult 3 Months R30.0 - Dysuria, R73.02 - Impaired glucose tolerance (oral) Hemoglobin A1c 3 Months R73.02 - Impaired glucose tolerance (oral)
[2024-07-21 09:18] VITALS: BP 138/70
== END 2024-07-21 09:44 | disposition home or self-care (01) ==
PROVIDERS: PCP Internal Medicine; Visit Provider Internal Medicine
DX: Z00.00 Encounter for general adult medical examination without abnormal findings (principal); R73.02 Impaired glucose tolerance (oral); E66.9 Obesity, unspecified; Z68.34 Body mass index [BMI] 34.0-34.9, adult; M54.16 Radiculopathy, lumbar region; M85.80 Other specified disorders of bone density and structure, unspecified site; E78.00 Pure hypercholesterolemia, unspecified; I10 Essential (primary) hypertension; E03.9 Hypothyroidism, unspecified; R05.3 Chronic cough

== ENCOUNTER → 2024-07-21 08:50 | Outpatient (BNVA) | payer MEDICARE, SELFPAY | PROVIDERS: PCP Internal Medicine; Visit Provider Internal Medicine | DX: Z00.01 Encounter for general adult medical examination with abnormal findings (principal); Z23 Encounter for immunization; R73.02 Impaired glucose tolerance (oral); M54.16 Radiculopathy, lumbar region; M85.80 Other specified disorders of bone density and structure, unspecified site; E78.00 Pure hypercholesterolemia, unspecified; E66.9 Obesity, unspecified; I10 Essential (primary) hypertension; E03.9 Hypothyroidism, unspecified; R05.3 Chronic cough | CPT/HCPCS: 90471; 90656; 96127; 99397 ==

== ENCOUNTER 2024-07-22 11:37 | Outpatient (REF) | payer MEDICARE, SELFPAY ==
--- NOTE | ~2024-07-22 | XR_ITS ---
EXAMINATION: XR CHEST 2 VIEWS CLINICAL INFORMATION: Cough, unspecified R05.9. Patient states cough and congestion for 1 month and not getting better. Off and on cough. COMPARISON: XR Chest 04/06/2017 TECHNIQUE: 2 views of the chest were obtained. FINDINGS: Cardiac silhouette is normal in size. The lungs are well aerated. There is no lobar consolidation. No pleural effusion or pneumothorax. Moderate diffuse degenerative changes of the spine. The XR/XR chest 2V IMPRESSION: No acute pulmonary pathology. Electronically signed by: Zak Saeed MD 09/22/2024 09:09 AM [facility]
== END 2024-07-22 11:38 | disposition home or self-care (01) ==
LOC: HO.XRAY 11:37
PROVIDERS: PCP Internal Medicine; Visit Provider Internal Medicine
DX: R05.9 Cough, unspecified (principal)
CPT/HCPCS: 71046

== ENCOUNTER 2024-08-10 10:41 | Outpatient (REF) | payer MEDICARE, SELFPAY ==
--- NOTE | ~2024-08-10 | MM_ITS ---
EXAMINATION: BONE DENSITOMETRY CLINICAL INDICATION: Age-related osteoporosis without current pathological fracture. COMPARISON: Previous BD dated 12/10/2021 and baseline BD dated 07/18/2008. TECHNIQUE: Using a [employer] DXA System (software version: 13.1) manufactured by [employer], dual-energy x-ray absorptiometry was performed of the lumbar spine and left hip. The images are of good technical quality. Summary results are attached. FINDINGS: LEFT FEMUR, NECK: Current: BMD 0.994 g/cm2, Z-score 0.8, T-score -0.3, normal. Prior: BMD 0.784 g/cm2. Baseline: BMD 1.006 g/cm2. LEFT FEMUR, TOTAL: Current: BMD 1.039 g/cm2, Z-score 1.1, T-score 0.2, normal, 17.3% increase from previous, 1.9% increase from baseline (<5% change is not significant). Prior: BMD 0.886 g/cm2. Baseline: BMD 1.020 g/cm2. AP SPINE L1-L4: Current: BMD 1.366 g/cm2, Z-score 2.2, T-score 1.5, normal, 0.6% decrease from previous, 13.5% increase from baseline (<5% change is not significant). Prior: BMD 1.374 g/cm2. Baseline: BMD 1.203 g/cm2. IDENTIFIED RISK FACTORS: Menopause. HISTORY OF FRACTURE: None listed. MEDICATIONS: Vitamin D. MM/XR DEXA axial skeleton IMPRESSION: 1. DIAGNOSIS: Normal bone density based on the lowest T-score value of -0.3 in the femoral neck applying World Health Organization criteria. 2. 10-YEAR FRACTURE RISK PREDICTION, FRAX: According to the guidelines, FRAX calculation should only be performed on patients in the osteopenia bone density category. Therefore, FRAX was not performed on this patient. 3. Treatment Recommendations: NOF guidelines recommend consideration for treatment in postmenopausal women and men age 50 and older presenting with the following: -A hip or vertebral (clinical or morphometric) fracture. -T-score less than or equal to -2.5 at the femoral neck or spine after appropriate evaluation to exclude secondary causes. -Low bone mass at the hip or spine and a 10-year fracture probability by FRAX of greater than or equal to 3% for hip fracture or greater than or equal to 20% for major osteoporotic fracture based on the [place] adapted WHO algorithm. 4. Other Recommendations: All treatment decisions require clinical judgment and consideration of individual patient factors, including patient preferences, comorbidities, previous drug use, risk factors not captured in the FRAX model (e.g. frailty, falls, vitamin D deficiency, increased bone turnover, interval significant decline in bone density) and possible under or overestimation of fracture risk by FRAX. FUTURE SCAN RECOMMENDATION: People with diagnosed cases of osteoporosis or at high risk for fracture should have regular bone mineral density tests. For patients eligible for Medicare, routine testing is allowed once every 2 years. The testing frequency can be increased to one year for patients who have rapidly progressing disease, those who are receiving or discontinuing medical therapy to restore bone mass, or have additional risk factors. Electronically signed by: Aristides Barragan MD 08/11/2024 01:42 PM EDT RP
== END 2024-08-10 10:42 | disposition home or self-care (01) ==
LOC: HO.MAMMO 10:41
PROVIDERS: PCP Internal Medicine; Visit Provider Internal Medicine
DX: M81.0 Age-related osteoporosis without current pathological fracture (principal); M85.80 Other specified disorders of bone density and structure, unspecified site
CPT/HCPCS: 77080

== ENCOUNTER 2024-10-10 11:18 | Outpatient (REF) | payer MEDICARE, SELFPAY | END 2024-10-10 11:19 | disposition home or self-care (01) | LOC: HO.MAMMO 11:18 | PROVIDERS: PCP Internal Medicine; Visit Provider Internal Medicine | DX: Z12.31 Encounter for screening mammogram for malignant neoplasm of breast (principal) | CPT/HCPCS: 77063; 77067 ==

== ENCOUNTER → 2024-10-10 11:30 | Outpatient (BNV) | payer MEDICARE, SELFPAY | PROVIDERS: PCP Internal Medicine; Visit Provider Internal Medicine | DX: Z12.31 Encounter for screening mammogram for malignant neoplasm of breast (principal) | CPT/HCPCS: 77063; 77067 ==

== ENCOUNTER 2024-10-14 09:47 | Outpatient (REF) | payer MEDICARE, SELFPAY ==
[2024-10-14 10:11] LABS: MANUAL DIFF FLAG NO
[2024-10-14 10:39] LABS: Basophils Absolute Auto 0.1 X10*3/uL (0.0-0.2); Basophils Percent Auto 0.9 % (0-2); Eosinophils Absolute Auto 0.1 X10*3/uL (0.0-0.4); Eosinophils Percent Auto 2.2 % (0-4); Hematocrit 40.4 % (37.0-47.0); Imm Gran Abs Auto 0.06 X10*3/uL (0.00-0.03); Imm Gran Pct Auto 0.9 % (0.0-0.4); Lymphocytes Percent Auto 31.5 % (20-40); Mean Corpuscular HGB Conc 32.2 g/dl (31.0-35.0); Mean Corpuscular Hemoglobin 28.8 pg (27.0-33.0); Mean Corpuscular Volume 89.6 fL (80.0-98.0); Mean Platelet Volume 9.9 fL (9.4-12.3); Monocytes Absolute Auto 0.6 X10*3/uL (0.1-1.2); Monocytes Percent Auto 9.2 % (2-11); Neutrophils Absolute Auto 3.5 x10*3/uL (2.0-8.3); Neutrophils Percent Auto 55.3 % (45-73); Platelet Count 231 X10*3/uL (160-400); Red Blood Count 4.51 X10*6/uL (4.20-5.50); Red Cell Distribution Width 13.2 % (11.0-16.0); White Blood Count 6.4 X10*3/uL (4.8-10.8)
[2024-10-14 10:51] LABS: Estimated Average Glucose 117 mg/dL; Hemoglobin A1C 133.8888 umol/L; Hemoglobin A1c % 5.7 % (<6.0)
[2024-10-14 11:25] LABS: Alanine Aminotransferase 17 U/L (0-31); Albumin Level 4.1 g/dL (3.5-5.0); Alkaline Phosphatase 83 U/L (39-117); Anion Gap 11 (12-20); Aspartate Amino Transferase 21 U/L (5-31); Bilirubin Total 0.6 mg/dL (0.0-1.0); Blood Urea Nitrogen 10 mg/dL (9-16); Calcium 9.2 mg/dL (8.4-10.2); Carbon Dioxide 27 mmol/L (22-29); Chloride 109 mmol/L (96-108); Cholesterol 183 mg/dL (<200); Estimated Glomerular Filt Rate 59; Glucose Random 106 mg/dL (60-115); HDL Cholesterol 38 mg/dL (>40); LDL Cholesterol Calculated 97 mg/dL (<100); Potassium 3.9 mmol/L (3.3-5.1); Sodium 143 mmol/L (135-145); Total Protein 6.8 g/dL (6.5-8.0); Triglycerides 241 mg/dL (<150)
[2024-10-14 11:29] LABS: Free T4 (Free Thyroxine) 1.17 ng/dL (0.71-1.85); Thyroid Stimulating Hormone 1.44 uIU/mL (0.32-4.0); Vitamin D 25-OH Total 20.2 ng/mL (>30)
[2024-10-14 11:56] LABS: Folate 7.9 ng/mL (> or = 4.0); Vitamin B12 168 pg/mL (200-900)
[2024-10-14 12:07] LABS: Appearance Urine Cloudy; Color Urine Yellow; Glucose Urine UA Negative (Negative); Leukocyte Esterase Urine Moderate (2+) (Negative); Nitrite Urine Negative (Negative); PH 5.5 (5.0-9.0); Specific Gravity - Urine 1.015 (1.005-1.025); UMIC TRIGGER UACC YES; Urine Blood Small (1+) (Negative); Urine Ketones Negative (Negative); Urine Protein Negative (Neg-Trace)
[2024-10-14 12:22] LABS: Bacteria Urine 1+ (None Seen); Hyaline Casts Urine 0-2 /LPF (0-2); RBC Urine 0-2 /HPF (0-2); Squamous Epithelial Cell Urine >20 /HPF (0-2); UACC Culture Trigger YES
== END 2024-10-14 09:48 | disposition home or self-care (01) ==
LOC: HO.LAB 09:47
PROVIDERS: PCP Internal Medicine; Visit Provider Internal Medicine
DX: E78.00 Pure hypercholesterolemia, unspecified (principal); R73.02 Impaired glucose tolerance (oral); R30.0 Dysuria
CPT/HCPCS: 36415; 80053; 80061; 81001; 81003; 82306; 82607; 82746; 83036; 84439; 84443; 85025; 87086

== ENCOUNTER 2024-10-20 15:42 | Outpatient (AMB) | payer MEDICARE, SELFPAY ==
[2024-10-20 15:48] VITALS: BP 130/72; PULSE 78; BMI 34.2
--- NOTE | 2024-10-20 15:48 | MHC.PC.OV ---
Vital Signs 10/20/24 15:48 Height 5 ft 6 in Weight 212 lb BMI 34.2 BP 130/72 Blood Pressure Location Lt brachial Position Sitting Pulse 78 Pulse Source Pulse Oximeter Intake Visit Reasons: Hypertension Allergies shellfish derived [SHELLFISH DERIVED] Allergy (Severe, Verified 10/20/24 15:49) HIVES bacitracin [From Neosporin ([id number])] Allergy (Intermediate, Verified 10/20/24 15:49) Rash hydrochlorothiazide Allergy (Intermediate, Verified 10/20/24 15:49) cramp neomycin [From Neosporin ([id number]-[id number])] Allergy (Intermediate, Verified 10/20/24 15:49) Rash polymyxin B [From Neosporin ([id number])] Allergy (Intermediate, Verified 10/20/24 15:49) Rash adhesive Allergy (Unknown, Verified 10/20/24 15:49) Rash povidone-iodine [From Betadine] Allergy (Verified 10/20/24 15:49) Hives coffee (Coffea arabica) Adverse Reaction (Intermediate, Verified 10/20/24 15:49) Hives Tobacco use date assessed: 10/20/24 Fall risk assessment: No Falls in past year Last assessed Fall Risk: 10/20/24 Dental Screening Dental Screen Date: 10/20/24 Did you have a dental visit in the last 12 months?: Yes Did you have a dental problem in the last 6 months where you did not have access to dental care?: No Was dental information given to patient?: Patient has dentist HPI Hypertension HPI Details The patient is a 74-year-old female presenting for a wellness visit with a focus on reviewing laboratory results and managing chronic conditions. Her medical history includes hypertension, managed with amlodipine and losartan, both of which she is currently taking. Hypothyroidism is being treated with thyroid medication, specific name not mentioned. She has a history of hyperlipidemia, for which she is taking rosuvastatin, currently achieving a low-density lipoprotein (LDL) level of 97 mg/dL, which is within the target range. However, she continues to have elevated triglycerides, with the latest result being 241 mg/dL, unchanged from previous assessments. Meanwhile, her liver function tests are normal. Laboratory workup shows a Vitamin B12 deficiency, with her levels at 168 pg/mL, below the desired threshold of 300 pg/mL and lower than her previous measurements. She also has a noted Vitamin D deficiency. The patient's fasting blood sugar is slightly above the normal range at 106 mg/dL, but her hemoglobin A1c has improved to 5.7% from a previous 5.8%. She reports a history of a urinary tract infection (UTI) with an increased white blood cell count in urine but remains asymptomatic currently. The patient mentions no difficulties with urination since she adjusted her fluid intake, allowing for improved sleep. A recent bone density test indicated improvement from the prior assessment, confirming stable bone health. [facility] Medical History (Updated 10/14/24 @ 18:50 by Renuka Leon MD) Osteoarthritis Impaired fasting glucose Back pain Arthritis Numbness Fatty liver Lumbar degenerative disc disease Peripheral vascular disease Obesity (BMI 30-39.9) Vitamin D deficiency Hypothyroid Elevated cholesterol HTN (hypertension) Surgical History (Updated 02/11/24 @ 14:07 by DORA Mehta) Hx of decompressive lumbar laminectomy History of foot surgery History of bunionectomy Hx of tubal ligation Hx laparoscopic cholecystectomy History of carpal tunnel release Hx of shoulder surgery H/O colonoscopy Family History Father No problems noted. Mother Breast cancer Hypertension CVD (cardiovascular disease) Stroke Bladder cancer Maternal Aunt Breast cancer Maternal Grandmother Breast cancer Brother No problems noted. Sister No problems noted. Daughter No problems noted. Daughter No problems noted. 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 1. Little interest or pleasure in doing things: not at all 2. Feeling down, depressed, or hopeless: not at all 3. Trouble falling or staying asleep, or sleeping too much: not at all 4. Feeling tired or having little energy: not at all 5. Poor appetite or overeating: not at all 6. Feeling bad about yourself - or that you are a failure or have let yourself or your family down: not at all 7. Trouble concentrating on things, such as reading the newspaper or watching television: not at all 8. Moving or speaking so slowly that other people could have noticed. Or the opposite - being so fidgety or restless that you have been moving around a lot more than usual: not at all 9. Thoughts that you would be better off or of hurting yourself in some way: not at all Total score: 0 Depression Screening Interpretation: Negative Depression Screening Done: Yes 29175 - PHQ-9 Billing: Yes Source: Developed by Drs. Hollis Pierson, Vida Reyna, Nick Hicks and colleagues, with an educational cisco from [employer]. Thrive Questionnaire Date Thrive assessed: 10/18/24 I am a: Patient What is your living situation today?: I have a steady place to live Within the past 12 months, did the food you bought not last and you didn't have the money to get more?: Never true Within the past 12 months, did you worry whether your food would run out before you got money to buy more?: Never true Do you have trouble paying for medicines?: No Do you have trouble getting transportation to medical appointments?: No Do you have trouble paying your heating and electricity bill?: No Do you have trouble taking care of your child, family member or friend?: No Do you have trouble with day-to-day activities such as bathing, preparing meals, shopping, managing finances, etc.?: No Are you currently unemployed and looking for a job?: No Are you interested in more education?: No Please select the resources that you would like help with: None Currently or been in a relationship where the following occur: No concerns reported THRIVE Score: 0 AUDIT C Alcohol Use Questionnaire (AUDIT-C) 1. How often do you have a drink containing alcohol?: Monthly or less 2. How many drinks containing alcohol do you have on a typical day when you are drinking?: 1 or 2 3. How often do you have six or more drinks on one occasion?: Never Total Score: 1 HIMA-7 AMB Questionnaire HIMA-7 Date HIMA - 7 assessed: 10/20/24 Feeling nervous, anxious, or on edge: 0 = Not at all Not being able to stop or control worryin = Not at all Worrying too much about different things: 0 = Not at all Trouble relaxin = Not at all Being so restless that it is hard to sit still: 0 = Not at all Becoming easily annoyed or irritable: 0 = Not at all Feeling afraid as if something awful might happen: 0 = Not at all Total HIMA-7 score (0-4 normal; 5-9 mild; 10-14 moderate; 15-21 severe): 0 Source: Developed by Drs. Hollis Pierson, Vida Reyna, Nick Hicks and colleagues, with an educational cisco from [employer]. Physical exam (Primary Care) Vital Signs: Last Vital Signs Pulse 78 10/20/24 15:48 BP 130/72 10/20/24 15:48 BMI result Body Mass Index 34.2 Tobacco/Smoking Status: Tobacco use Status Tobacco use date assessed 10/20/24 10/20/24 15:49 Patient Tobacco Use Status Former Tobacco user 10/20/24 15:49 Tobacco use type Cigarette 10/20/24 15:49 e-Cigarette/Vaping Use Never Used 10/20/24 15:49 PHQ-9: PHQ-9 Score PHQ-9: Total score 0 10/20/24 16:53 Depression Screening Interpretation: Negative Thrive Assessment: Date of Thrive Assessment Date Thrive assessed 10/18/24 10/20/24 15:49 Currently or been in a relationship where the following occur: No concerns reported Const General: alert; No acute distress Eyes Conjunctivae: conjunctivae normal Resp Auscultation: clear to auscultation bilaterally Cardio Rate: regular rate Rhythm: regular rhythm GI Inspection: Yes normal to inspection Extrem General: Yes normal to inspection and No edema Coding Level of Care Code Est Pt Level 4 (64438) Complex EM visit Add On G2211 Diagnoses Vitamin B 12 deficiency E53.8 Impaired glucose tolerance R73.02 Obesity (BMI 30-39.9) E66.9 Acquired hypothyroidism E03.9 Hypothyroidism type: acquired Essential hypertension I10 Hypertension type: essential hypertension Elevated cholesterol E78.00 Additional Codes PHQ-9 - 30669 - PHQ-9 Billing: Yes ([id number]) Assessment & Plan Assessment & Plan (1) Vitamin B 12 deficiency: Code(s): E53.8 - Deficiency of other specified B group vitamins Category: Medical Plan: Prescription for vitamin B12 sent a 1000 mcg once a day (2) Impaired glucose tolerance: Code(s): R73.02 - Impaired glucose tolerance (oral) Category: Medical Plan: Decrease the amount of carbohydrate intake, pasta, bread, rice and potatoes are all sugar and that is aside from all the sweet stuff, remember that fruits are good but they are Sweet also. (3) Obesity (BMI 30-39.9): Code(s): E66.9 - Obesity, unspecified Category: Medical Plan: Diet and exercise (4) Hypothyroid: Code(s): E03.9 - Hypothyroidism, unspecified Category: Medical Qualifiers: Hypothyroidism type: acquired Qualified Code(s): E03.9 - Hypothyroidism, unspecified Plan: Continue with thyroid medication (5) HTN (hypertension): Code(s): I10 - Essential (primary) hypertension Category: Medical Qualifiers: Hypertension type: essential hypertension Qualified Code(s): I10 - Essential (primary) hypertension Plan: Continue with blood pressure medication. Decrease salt intake and exercise continue with losartan and amlodipine (6) Elevated cholesterol: Code(s): E78.00 - Pure hypercholesterolemia, unspecified Category: Medical Plan: Avoid fried foods, chicken skin, eggs, butter margarine, pastries and meat. Be it pork or beef they have a lot of cholesterol LDL goal of less than 100 and triglyceride of less than 150 Plan 1. - Reinstate vitamin D supplementation; ensure adequate intake, especially during winter: - Encourage dietary modifications to reduce triglyceride levels; continue rosuvastatin therapy for cholesterol management. - Monitor blood sugar levels and hemoglobin A1c; recommend lifestyle adjustments for glycemic control. - Advise on recognizing symptoms of urinary tract infection and initiate antibiotic therapy only if symptomatic. - Reinforce the importance of regular physical activity for bone health and overall wellness. - Review vaccination history; patient received flu vaccine and COVID-19 booster this season. Orders: Orders Complete Blood Count Auto Diff 6 Months I10 - Essential (primary) hypertension Comprehensive Met. Panel 6 Months I10 - Essential (primary) hypertension Lipid Panel 6 Months E78.00 - Pure hypercholesterolemia, unspecified, I10 - Essential (primary) hypertension Hemoglobin A1c 6 Months I10 - Essential (primary) hypertension Free T4 (Free Thyroxine) 6 Months I10 - Essential (primary) hypertension Thyroid Stimulating Hormone 6 Months I10 - Essential (primary) hypertension Vitamin B12 and Folate 6 Months I10 - Essential (primary) hypertension Vitamin D 25-OH Total 6 Months I10 - Essential (primary) hypertension UA CC w/rflx Micro + Cult 6 Months I10 - Essential (primary) hypertension, R30.0 - Dysuria
--- OUTSIDE RECORDS SUMMARY | 2024-10-20 16:59 | XMS_ITS | Patient Health Record ---
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 Fresh Meat Grader Name Role Phone Renuka Leon Primary Care Provider Shad Dueñas Unavailable [phone] Allergies Allergen (clinical drug ingredient) Drug/Non Drug Allergy documented on EMR Reaction Allergy Type Onset Date Status coffee (uncoded) hives, throat swells Allergy Active povidone-iodine Betadine shrimp/throat swells Drug Allergy Active Neosporin hives, red rash Drug Allergy A ctive Shellfish (FN) Shellfish-derived Products hives Drug Allergy Active Reason For Referral No Information Medications Medication SIG (Take, Route, Frequency, Duration) Notes Start Date End Date Status Night Splint AFO - L1930 as directed 05/14/2022 Active Multivitamin Active Losartan Potassium 50 MG 1 tablet Orally Once a day for 30 day(s) Active Levothyroxine Sodium 175 MCG 1 tablet in the morning on an empty stomach Orally Once a day for 30 day(s) Active Amitriptyline HCl 10 MG 1 tablet at bedt arianne Orally Once a day for 30 day(s) Active Ibuprofen 800 MG 1 tablet every Orally Three times a day for 30 days 06/13/2015 Not-Taking hydroCHLOROthiazide 12.5 MG 1 capsule in the morning Orally Once a day for 30 day(s) Not-Taking Crestor 10 MG 1 tablet Orally Once a day for 30 day(s) Not-Taking Vitamin D Active Rosuvastatin Calcium 10 MG 1 tablet Oral ly Once a day for 30 day(s) Active traMADol HCl Not-Ajith ing Darvocet-N 100 Not-T aking Synthroid Not-Taking Immunizations Vaccine Route Administration Date Status Comme nts COVID-19 Moderna Vaccine Unknown 03/24/2022 Administered 1st 12/05/20 2nd 01/02/21 3rd 08/18/21 Social History Tobacco Use: Social History Observation Description Date Details (start date - stop date) Former Smoker NA - NA Tobacco Use/Smoking Question Answer Notes Are you a: former smoker Additional Findings: Tobacco Non-User Current no n-smoker Alcohol Screen Question Answer Notes Did you have a drink containing alcohol in the p ast year? No Points 0 Interpretation Negative Tobacco use other than smoking: Question Answer Notes Are you an other tobacco user? No Problems Problem Type SNOMED Code ICD Code Onset Dates Problem Status W/U Status Risk Notes Problem Acquired hammer toe of left foot ([id number]) Other hammer toe(s) (acquired), left foot (M20.42) Active confirmed Problem Pain in limb (51536842) Pain in unspecified foot (M79.673) Active confirmed Plan Of Treatment Pending Test Test Name Order Date X ray : Foot, left 2V 10/25/2012 X ray : Foot, left 2V 07/02/2015 X ray : Foot, left 2V 07/12/2015 X ray : Foot, left 2V 07/30/2015 X ray : Foot, right 2V 12/15/2012 X ray : Foot, right 2V 12/29/2012 X ray : Foot, right 2V 10/25/2012 X ray : Foot, right 2V 12/01/2012 X ray : Foot, right 2V 01/20/2013 X ray : Foot, left 3V 08/29/2015 X ray : Foot, left 3V 05/06/2019 X ray : Foot, left 3V 06/06/2019 X ray : Foot, left 3V 05/14/2022 X ray : Foot, right 3V 03/02/2013 09612-Dyhd Destruction, 10-2512/28/2013 24363-Fbkg Destruction, 10-2508/09/2014 29731-Cflf Destruction, 10-2511/06/2014 02241-Wkri Destruction, 10-2501/17/2015 66806-Zgkr Destruction, 10-2504/09/2015 36550-Ylhr Destruction, 10-2506/13/2015 46098-Wvvs Destruction, 10-2506/23/2011 42499-Wqcf Destruction, 10-2509/15/2011 15673-Gavv Destruction, 10-2501/12/2012 64844-Phma Destruction, 10-2506/28/2012 82348-Ypzn Destruction, 10-2509/29/2012 36131-Atlq Destruction, 10-2510/25/2012 03138-Uqpk Destruction, 10-2512/29/2012 98600- Debride <25 sq cm 08/16/2015 49898-Vbajkjsgt, Toes 05/06/2019 L4386- Walking Boot 12/01/2012 Insurance Providers Payer Name Payer Address Payer Phone Subscriber Number Group Number Insured Name Patient Relationship to Insured Coverage Start Date Coverage End Date [employer] [place] [employer] [address] [place] [address] [id number] Emani Magana Self - patient is the insured Medical (General) History Medical History History ICD Code measles headaches/migraines chicken pox Shingles Back,Hip,and Knee pain CAD (Cholesterol) Gall bladder problems High blood pressure Numbness thyroid Surgical History Surgery Date(Month/Year) carpal tunnel surgery 2004 foot surgery 1998, 1987 shoulder surgery 1996 Bunionectomy, Osteotomy, Exostosis right foot 11/25/12 osteotomy left 2nd [place], Hammertoe repair left 3rd 06/28/2015 gall bladder removal 02/2021 tubal ligation 1976
== END 2024-10-20 17:03 | disposition home or self-care (01) ==
PROVIDERS: PCP Internal Medicine; Visit Provider Internal Medicine
DX: R73.02 Impaired glucose tolerance (oral) (principal); E53.8 Deficiency of other specified B group vitamins; Z68.34 Body mass index [BMI] 34.0-34.9, adult; E66.9 Obesity, unspecified; E03.9 Hypothyroidism, unspecified; I10 Essential (primary) hypertension; E78.00 Pure hypercholesterolemia, unspecified

== ENCOUNTER → 2024-10-20 15:42 | Outpatient (BNVA) | payer MEDICARE, SELFPAY | PROVIDERS: PCP Internal Medicine; Visit Provider Internal Medicine | DX: E53.8 Deficiency of other specified B group vitamins (principal); R73.02 Impaired glucose tolerance (oral); E66.9 Obesity, unspecified; E03.9 Hypothyroidism, unspecified; I10 Essential (primary) hypertension; E78.00 Pure hypercholesterolemia, unspecified | CPT/HCPCS: 96127; 99212 ==

== ENCOUNTER 2025-07-27 12:59 | Outpatient (AMB) | payer MEDICARE, SELFPAY ==
[2025-07-27 13:05] VITALS: BP 144/68; PULSE 78; O2SAT 98; BMI 35.2
--- NOTE | 2025-07-27 13:05 | MHC.PC.OV ---
Vital Signs 07/27/25 13:05 07/27/25 13:38 Height 5 ft 6 in Weight 218 lb BMI 35.2 BP 144/68 H 132/60 Blood Pressure Location Lt brachial Lt brachial Position Sitting Sitting Pulse 78 Pulse Source Pulse Oximeter Pulse Oximetry (%) 98 Oxygen Delivery Method Room Air Intake Visit Reasons: annual exam Allergies shellfish derived (SHELLFISH DERIVED) Allergy (Severe, Verified 07/27/25 13:05) HIVES bacitracin (From Neosporin ([id number])) Allergy (Intermediate, Verified 07/27/25 13:05) Rash hydrochlorothiazide Allergy (Intermediate, Verified 07/27/25 13:05) cramp neomycin (From Neosporin ([id number])) Allergy (Intermediate, Verified 07/27/25 13:05) Rash polymyxin B (From Neosporin ([id number])) Allergy (Intermediate, Verified 07/27/25 13:05) Rash adhesive Allergy (Unknown, Verified 07/27/25 13:05) Rash povidone-iodine (From Betadine) Allergy (Verified 07/27/25 13:05) Hives coffee (Coffea arabica) Adverse Reaction (Intermediate, Verified 07/27/25 13:05) Hives Medication List - Last Reconciled 07/27/25 by Renuka Leon MD amlodipine 2.5 mg PO DAILY cholecalciferol (vitamin D3) 50 mcg PO DAILY cyanocobalamin (vitamin B-12) 1,000 mcg PO DAILY levothyroxine 175 mcg PO DAILY losartan 100 mg PO DAILY 90 days multivitamin 1 tab PO DAILY rosuvastatin 10 mg PO BEDTIME tramadol 50 mg PO BID Tobacco use date assessed: 10/20/24 Fall risk assessment: No Falls in past year Last assessed Fall Risk: 07/27/25 Dental Screening Dental Screen Date: 10/20/24 HPI annual exam HPI Details 2 months R sided headache for was told ocular migraine-but eye exam is good [facility] Medical History (Updated 07/27/25 @ 13:49 by Renuka Leon MD) Osteoarthritis Impaired fasting glucose Back pain Arthritis Numbness Fatty liver Lumbar degenerative disc disease Peripheral vascular disease Obesity (BMI 30-39.9) Vitamin D deficiency Hypothyroid Elevated cholesterol HTN (hypertension) Surgical History (Updated 02/11/24 @ 14:07 by DORA Mehta) Hx of decompressive lumbar laminectomy History of foot surgery History of bunionectomy Hx of tubal ligation Hx laparoscopic cholecystectomy History of carpal tunnel release Hx of shoulder surgery H/O colonoscopy Family History Father No problems noted. Mother Breast cancer Hypertension CVD (cardiovascular disease) Stroke Bladder cancer Maternal Aunt Breast cancer Maternal Grandmother Breast cancer Brother No problems noted. Sister No problems noted. Daughter No problems noted. Daughter No problems noted. 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 1. Little interest or pleasure in doing things: not at all 2. Feeling down, depressed, or hopeless: not at all 3. Trouble falling or staying asleep, or sleeping too much: not at all 4. Feeling tired or having little energy: not at all 5. Poor appetite or overeating: not at all 6. Feeling bad about yourself - or that you are a failure or have let yourself or your family down: not at all 7. Trouble concentrating on things, such as reading the newspaper or watching television: not at all 8. Moving or speaking so slowly that other people could have noticed. Or the opposite - being so fidgety or restless that you have been moving around a lot more than usual: not at all 9. Thoughts that you would be better off or of hurting yourself in some way: not at all Total score: 0 Depression Screening Interpretation: Negative Depression Screening Done: Yes Source: Developed by Drs. Hollis Pierson, Vida B.W. Nick Reyna and colleagues, with an educational cisco from [employer]. Thrive Questionnaire Date Thrive assessed: 10/18/24 I am a: Patient What is your living situation today?: I have a steady place to live Within the past 12 months, did the food you bought not last and you didn't have the money to get more?: Never true Within the past 12 months, did you worry whether your food would run out before you got money to buy more?: Never true Do you have trouble paying for medicines?: No Do you have trouble getting transportation to medical appointments?: No Do you have trouble paying your heating and electricity bill?: No Do you have trouble taking care of your child, family member or friend?: No Do you have trouble with day-to-day activities such as bathing, preparing meals, shopping, managing finances, etc.?: No Are you currently unemployed and looking for a job?: No Are you interested in more education?: No Please select the resources that you would like help with: None Currently or been in a relationship where the following occur: No concerns reported THRIVE Score: 0 AUDIT C Alcohol Use Questionnaire (AUDIT-C) 1. How often do you have a drink containing alcohol?: Monthly or less 2. How many drinks containing alcohol do you have on a typical day when you are drinking?: 1 or 2 3. How often do you have six or more drinks on one occasion?: Never Total Score: 1 HIMA-7 AMB Questionnaire IHMA-7 Date HIMA - 7 assessed: 10/20/24 Source: Developed by Drs. Hollis Pierson, Nick Luong and colleagues, with an educational cisco from [employer]. Review of Systems Const Denies poor appetite and Denies weakness Eyes Denies no additional complaints ENT Reports Normal hearing present, Denies dizziness, Denies nasal congestion, Denies tinnitus and Denies sore throat Card Denies chest pain, Denies syncope, Denies rapid heart rate and Denies dyspnea Resp Denies cough and Denies dyspnea GI Denies change in stool character, Reports constipation, Denies diarrhea, Denies nausea and Denies vomiting Denies urinary frequency, Denies difficulty voiding and Denies dysuria Neuro Reports Normal hearing present, Denies confusion, Denies dizziness, Denies syncope and Denies weakness Psych Denies confusion Physical exam (Primary Care) Vital Signs: Last Vital Signs Pulse 78 07/27/25 13:05 BP 132/60 07/27/25 13:38 Pulse Ox 98 07/27/25 13:05 Oxygen Delivery Method Room Air 07/27/25 13:05 BMI result Body Mass Index 35.2 Tobacco/Smoking Status: Tobacco use Status Tobacco use date assessed 10/20/24 07/27/25 13:07 Patient Tobacco Use Status Former Tobacco user 07/27/25 13:07 Tobacco use type Cigarette 07/27/25 13:07 e-Cigarette/Vaping Use Never Used 07/27/25 13:07 PHQ-9: PHQ-9 Score PHQ-9: Total score 0 07/27/25 13:35 Depression Screening Interpretation: Negative Thrive Assessment: Date of Thrive Assessment Date Thrive assessed 10/18/24 07/27/25 13:07 Currently or been in a relationship where the following occur: No concerns reported Const General: alert and awake; No confusion Orientation/consciousness: No confusion HENMT Head: Yes normocephalic Ears: external ears normal and TM's normal bilaterally Face and sinus: Yes normal facial exam Mouth: moist mucous membranes Throat: Yes tonsils normal Eyes Conjunctivae: conjunctivae normal Pupils: Equal, round and reactive pupils present and Pupil accommodation reflex normal Direct Ophthalmoscopy: normal light reflex Neck Neck: No lymphadenopathy Thyroid: Thyroid normal Chest Chest palpation & inspection: normal inspection of the chest Resp Effort & Inspection: normal respiratory effort and no audible wheezes Auscultation: clear to auscultation bilaterally, no crackles, no wheezes and lung sounds not diminished Cardio Rate: regular rate Rhythm: regular rhythm Peripheral pulses: radial pulses present and dorsalis pedis present GI Palpation (GI): no masses Auscultation: normal bowel sounds and normoactive bowel sounds Rectal Exam - Female: deferred Skin General skin exam: no rashes or lesions noted Rashes: no rashes Neuro General: deep tendon reflexes 2+ bilaterally and No confusion Cranial nerves: Yes Equal, round and reactive pupils present, Yes Midline tongue present, Yes Normal hearing present and Yes Ability to bilaterally elevate shoulders present Cognition (Neuro): normal cognition Gait exam (Neuro): Normal gait present Motor exam (neuro): 5/5 motor strength present throughout Deep tendon reflexes (DTR's): Right brachioradialis reflex intensity grade: 2+, Left brachioradialis reflex intensity grade: 2+, Right patellar reflex intensity grade: 2+ and Left patellar reflex intensity grade: 2+ Extrem General: No edema Office Procedures Flu Questionnaire Does the patient have a severe egg allergy?: No Does the patient have severe life threatening allergies?: No Does the patient have a fever or illness today?: No Has the patient ever had Guillain-Gully Syndrome?: No Has the patient ever had any past reaction to a flu shot?: No Immunizations Fluarix [id number] (PF) 45 mcg (15 mcg x 3)/0.5 mL IM syringe Performing Provider: Renuka Leon MD [facility] Administered by: Cammie Rodríguez CMA on 07/27/25 13:15 Dose Route Admin Location Dispensed Lot Number Expiration Date 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 0.5 mL IM Left Deltoid 0.5 mL [id number] 04/10/26 [id number] [employer] VIS Given Date VIS Provided VIS Publication Date 07/27/25 Single Vaccine 24 Eligibility Eligibility Date Funding Source Not [facility] Eligible 07/27/25 Private Coding Level of Care Code Est Pt Level 4 (13531) Est Pt Prev Care >65y(45502) Diagnoses Annual physical exam Z00.00 Impaired glucose tolerance R73.02 Acquired hypothyroidism E03.9 Hypothyroidism type: acquired Essential hypertension I10 Hypertension type: essential hypertension Elevated cholesterol E78.00 Obesity (BMI 30-39.9) E66.9 Vitamin B 12 deficiency E53.8 Lumbar degenerative disc disease M51.36 Colon cancer screening Z12.11 Assessment & Plan Assessment & Plan (1) Annual physical exam: Code(s): Z00.00 - Encounter for general adult medical examination without abnormal findings Category: Medical Plan: Patient is advised to eat healthy, keep well hydrated, keep active and have adequate sleep. (2) Impaired glucose tolerance: Code(s): R73.02 - Impaired glucose tolerance (oral) Category: Medical Plan: Decrease the amount of carbohydrate intake, pasta, bread, rice and potatoes are all sugar and that is aside from all the sweet stuff, remember that fruits are good but they are Sweet also. (3) Hypothyroid: Code(s): E03.9 - Hypothyroidism, unspecified Category: Medical Qualifiers: Hypothyroidism type: acquired Qualified Code(s): E03.9 - Hypothyroidism, unspecified Plan: Continue with thyroid medication (4) HTN (hypertension): Code(s): I10 - Essential (primary) hypertension Category: Medical Qualifiers: Hypertension type: essential hypertension Qualified Code(s): I10 - Essential (primary) hypertension Plan: Continue with blood pressure medication. Decrease salt intake and exercise patient on amlodipine 2.5 mg once a day losartan 100 mg once a day (5) Elevated cholesterol: Code(s): E78.00 - Pure hypercholesterolemia, unspecified Category: Medical Plan: Avoid fried foods, chicken skin, eggs, butter margarine, pastries and meat. Be it pork or beef they have a lot of cholesterol on rosuvastatin LDL goal of less than 130 and triglyceride of less than 150 (6) Obesity (BMI 30-39.9): Code(s): E66.9 - Obesity, unspecified Category: Medical Plan: Diet and exercise (7) Vitamin B 12 deficiency: Code(s): E53.8 - Deficiency of other specified B group vitamins Category: Medical Plan: Discussion about vitamin B12 1000 mcg once a day (8) Lumbar degenerative disc disease: Comment: 08/04/2022 L3-4, L4-5 decompressive laminectomy and medial facetectomy by Dr. Lundberg. MRI February 2023MRI done showing L2-L3 mild to moderate spinal canal stenosis and compression of the exiting L2 right nerve root L4-L5 progressive moderate to severe left neural foraminal stenosis with mild compression of the exiting left L4 nerve L3-L4 posterior decompression without spinal canal stenosis or foraminal nerve root compression Code(s): M51.36 - Other intervertebral disc degeneration, lumbar region Category: Medical Plan: Keep active (9) Colon cancer screening: Code(s): Z12.11 - Encounter for screening for malignant neoplasm of colon Category: Medical Plan History of Present Illness The patient is a 75-year-old female presenting for a wellness visit and management of chronic conditions. The patient has a history of obesity, hypertension, hypothyroidism, and hypercholesterolemia. She is currently on medications including amlodipine, losartan, thyroid medication, vitamin D, vitamin B12, multivitamins, and rosuvastatin. Her blood pressure was recorded at 130/60 mmHg during the visit, and she reports using her boyfriend's blood pressure machine occasionally due to her own being non-functional. The patient reports a history of cervical spondylosis and lumbar degenerative disc disease, with a status post lumbar surgery in November 2023. She experiences back pain, which affects her ability to exercise and manage her weight effectively. The patient has impaired glucose tolerance and vitamin B12 deficiency, with a recent blood test showing a hemoglobin A1c of 5.7%. She also has a vitamin D deficiency, which is being managed with supplementation. The patient reports experiencing ocular migraines, characterized by visual disturbances lasting 20 to 45 minutes, without accompanying headaches. She has been tracking these episodes since April and has shared this information with her eye doctor. The patient also reports daily headaches, which she describes as a pain that starts in one area and moves to another, sometimes occurring multiple times a day. She manages these headaches with ibuprofen and Tylenol, which provide relief. Preventative care measures include a colonoscopy that is due this year, with the last one performed in August 2020. Her mammogram is up to date, and her last bone density test in July 2024 showed normal results. Health Maintenance - Colonoscopy due this year, last performed in August 2020 - Mammogram up to date - Bone density test normal in July 2024 - Vitamin D and B12 supplementation ongoing - Blood pressure monitoring advised - Flu vaccination received Social History - The patient reports using her boyfriend's blood pressure machine due to her own being non-functional. - The patient experiences back pain that affects her ability to exercise and manage her weight effectively. - The patient has been battling weight issues for a long time and is seeking ways to manage it without expensive medications. Review of Systems - Neurological: Reports daily headaches, denies associated nausea or vomiting - Ophthalmologic: Reports ocular migraines with visual disturbances lasting 20 to 45 minutes, denies accompanying headaches - Cardiovascular: Denies chest pain, orthopnea, or syncope - Respiratory: Denies dyspnea or cough - Gastrointestinal: Reports slow urination, denies dysphagia or heartburn - Musculoskeletal: Reports back pain affecting mobility - Sleep: Reports interrupted sleep due to nocturia, uses Tylenol PM for sleep Physical Exam General: Cooperative, healthy appearing, comfortable, no acute distress and well developed Orientation: Patient oriented x3 Limitations: No limitations Head: Normal to inspection Ears: Hearing grossly normal bilaterally, occasional pain in the right ear area Nose: Normal external nose present Face and sinus: Normal facial exam Eyes: Appearance normal, both eyes and all related structures Neck: Normal visual inspection and Yes full ROM Respiratory: Normal respiratory effort and able to speak in complete sentences. Clear to auscultation bilaterally Cardiovascular: Regular rate and rhythm. Normal S1 and S2. Blood pressure recorded at 130/60 GI: Normal to inspection. Soft to palpation and nontender Skin: No rashes or lesions noted Neuro: Patient oriented x3, experiencing daily headaches and ocular migraines Extremities: Normal to inspection Results - Labs: Hemoglobin A1c 5.7%, triglycerides 241 mg/dL, low vitamin B12 and D levels - Imaging: Bone density test normal in July 2024 Plan Patient was informed and verbally consented to the use of an ambient scribe for clinic note documentation during this visit. 1. Obesity The patient is advised to maintain an active lifestyle and consider dietary modifications to manage weight. Discussion included the potential use of phentermine as a weight management aid, though concerns about side effects were noted. 2. Hypertension The patient is currently on amlodipine and losartan for blood pressure management. Regular monitoring of blood pressure at home is advised, with a target of maintaining readings within normal limits. 3. Hypothyroidism The patient is advised to continue her current thyroid medication regimen. 4. Hypercholesterolemia The patient is on rosuvastatin with a goal to maintain LDL cholesterol below 130 mg/dL and triglycerides below 150 mg/dL. 5. Cervical Spondylosis The patient reports chronic neck pain, which is managed with lifestyle modifications and pain management strategies. 6. Lumbar Degenerative Disc Disease The patient experiences back pain affecting mobility, and is advised to consider physical therapy and pain management options. 7. Impaired Glucose Tolerance The patient is advised to monitor blood glucose levels and maintain a balanced diet to prevent progression to diabetes. 8. Vitamin B12 Deficiency The patient is advised to continue vitamin B12 supplementation at 1000 mcg daily. 9. Vitamin D Deficiency The patient is advised to continue vitamin D supplementation. 10. Ocular Migraines The patient is advised to continue monitoring episodes and report any changes in frequency or severity to her eye doctor. 11. Headaches The patient is advised to track headache occurrences and manage them with ibuprofen and Tylenol as needed. Consideration for further evaluation with imaging if symptoms persist or worsen. 12. Preventative Care: Colon Cancer Screening The patient is due for a colonoscopy this year, with a referral to be arranged. Discussion Notes During the visit, we discussed the management of the patient's chronic conditions, including hypertension, hypothyroidism, and hypercholesterolemia. We reviewed the patient's medication regimen and emphasized the importance of adherence to prescribed treatments. We also discussed the patient's headaches and ocular migraines, advising her to monitor these symptoms and consider further evaluation if they persist. Preventative care measures, including the need for a colonoscopy, were highlighted, and a referral was planned. Patient Instructions - Continue taking all prescribed medications as directed. - Monitor blood pressure regularly at home. - Maintain an active lifestyle and consider dietary modifications to manage weight. - Track headache occurrences and manage with ibuprofen and Tylenol as needed. - Schedule and complete a colonoscopy this year. - Continue vitamin D and B12 supplementation. Orders: Orders Influenza [id number] Immunization Today Z23 - Encounter for immunization Referrals Gastroenterology Referral Z12.11 - Encounter for screening for malignant neoplasm of colon
[2025-07-27 13:38] VITALS: BP 132/60
--- OUTSIDE RECORDS SUMMARY | 2025-07-27 16:11 | XMS_ITS | Patient Health Record ---
[facility] Address [address] [place] [address] Care Team Providers Care Community Support Professional Name Role Phone Renuka Leon Primary Care Provider Shad Butcher Unavailable [phone] Allergies Allergen (clinical drug ingredient) Drug/Non Drug [...] 50 MG 1 tablet Orally Once a day; Duration: 30 day(s) Active Levothyroxine Sodium 175 MCG 1 tablet in the morning on an empty stomach Orally Once a day; Duration: 30 day(s) Active Amitriptyline HCl 10 MG 1 tablet at bedt arianne Orally Once a day; Duration: 30 day(s) Active Ibuprofen 800 MG 1 tablet every Orally Three times a day; Duration: 30 days 06/13/2015 Not-Taking hydroCHLOROthiazide 12.5 MG 1 capsule in the morning Orally Once a day; Duration: 30 day(s) Not-Taking Crestor 10 MG 1 tablet Orally Once a day; Duration: 30 day(s) Not-Taking Vitamin D Active Rosuvastatin Calcium 10 MG 1 tablet Oral ly Once a day; Duration: 30 day(s) Active traMADol HCl Not-Ajith ing [...] Problem Acquired hammer toe of left foot ([id number]) Other hammer toe(s) (acquired), left foot (M20.42) Active confirmed Problem Pain in limb ([id number]) Pain in unspecified foot (M79.673) Active confirmed [...] X ray : Foot, right 3V 03/02/2013 23171-Gyjl Destruction, -12/28/2013 44292-Wyio Destruction, 10-2508/09/2014 74236-Dsqu Destruction, -11/06/2014 71937-Eufn Destruction, 10-2501/17/2015 65726-Llle Destruction, 10-2504/09/2015 01466-Offu Destruction, 10-2506/13/2015 95645-Ptgr Destruction, 10-2506/23/2011 07847-Itnn Destruction, 10-2509/15/2011 09344-Desd Destruction, 10-2501/12/2012 50399-Jkwl Destruction, 10-2506/28/2012 47486-Ufwv Destruction, 10-2509/29/2012 15060-Zchw Destruction, 10-2510/25/2012 69845-Vzwd Destruction, 10-2512/29/2012 38151- Debride <25 sq cm 08/16/2015 78800-Othgklzrk, Toes 05/06/2019 L4386- Walking Boot 12/01/2012 Insurance Providers Payer Name Payer Address Payer Phone Subscriber Number Group Number Insured Name Patient Relationship to Insured Coverage Start Date Coverage End Date [employer] [address] [place] [address] [id number] Emani Magana Self - patient is the [...] 06/28/2015 gall bladder removal 02/2021 tubal ligation 1977
--- OUTSIDE RECORDS SUMMARY | 2025-07-27 16:11 | XMS_ITS | Patient Health Record ---
Author Organization [facility] Address [address] [place] [address] Care Team Providers Care Utility Sales Representative Name Role Phone Renuka Leon MD Primary Care Provider Hollis Masterson [phone] Allergies Allergen (clinical drug ingredient) Drug/Non Drug Allergy documented on EMR Reaction Allergy Type Onset Date Status Neosporin (uncoded) Unknown Allergy Active shell fish, coffee (uncoded) Unknown Allergy Active Reason For Referral No Information Medications Medication SIG (Take, Route, Frequency, Duration) Notes Start Date End Date Status Synthroid 150 MCG 1 tablet Orally Once a day Active Crestor 10 MG 1 tablet Orally Once a day Active hydroCHLOROthiazide 12.5 MG as directed Orally Once a day Active Vitamin D 1000 UNIT 2 pills Orally Once a day Active Ibuprofen PRN Active Problems Problem Type SNOMED Code ICD Code Onset Dates Problem Status W/U Status Risk Notes Problem Screening for malignant neoplasm of colon (855036562) Encounter for screening for malignant neoplasm of colon (Z12.11) Active confirmed Problem History of adenomatous polyp of colon (763451649) History of adenomatous polyp of colon (Z86.010) Active confirmed Problem Preprocedural examination (743923297277692) Preprocedural examination (Z01.818) Active confirmed Plan Of Treatment Future Test Test Name Order Date COLONOSCOPY 03/06/2015 COLONOSCOPY 06/27/2020 Insurance Providers Payer Name Payer Address Payer Phone Subscriber Number Group Number Insured Name Patient Relationship to Insured Coverage Start Date Coverage End Date [facility] [address] [place] [address] [phone] [id number] ALYSSA RENEA Self - patient is the insured Medical (General) History Medical History History ICD Code Hypothyroidism Hyperlipidemia Colonoscopy 01/12/2003--neg. except for a hyperplastic polyp and internal hemorrhoids Denies [place],DM,CVA,Lung disease,renal dise ase Degenerative disease lumbosacral spine HTN Colonoscopy 05/2015 with removal of a sma ll tubular adneoma Surgical History Surgery Date(Month/Year) foot surgery tubal ligation shoulder surgery-right carpal tunnel release-right cholecystectomy
== END 2025-07-27 14:00 | disposition home or self-care (01) ==
LOC: HO.HMCH 13:00
PROVIDERS: PCP Internal Medicine; Visit Provider Internal Medicine
DX: Z00.00 Encounter for general adult medical examination without abnormal findings (principal); R73.02 Impaired glucose tolerance (oral); E66.9 Obesity, unspecified; Z68.35 Body mass index [BMI] 35.0-35.9, adult; E03.9 Hypothyroidism, unspecified; I10 Essential (primary) hypertension; E78.00 Pure hypercholesterolemia, unspecified; E53.8 Deficiency of other specified B group vitamins; M51.369 Other intervertebral disc degeneration, lumbar region without mention of lumbar back pain or lower extremity pain; Z12.11 Encounter for screening for malignant neoplasm of colon; Z23 Encounter for immunization

== ENCOUNTER → 2025-07-27 12:59 | Outpatient (BNVA) | payer MEDICARE, SELFPAY | PROVIDERS: PCP Internal Medicine; Visit Provider Internal Medicine | DX: Z00.00 Encounter for general adult medical examination without abnormal findings (principal); R73.02 Impaired glucose tolerance (oral); E03.9 Hypothyroidism, unspecified; I10 Essential (primary) hypertension; E78.00 Pure hypercholesterolemia, unspecified; E66.9 Obesity, unspecified; E53.8 Deficiency of other specified B group vitamins; M51.369 Other intervertebral disc degeneration, lumbar region without mention of lumbar back pain or lower extremity pain; M47.812 Spondylosis without myelopathy or radiculopathy, cervical region; E55.9 Vitamin D deficiency, unspecified; G43.909 Migraine, unspecified, not intractable, without status migrainosus; Z23 Encounter for immunization | CPT/HCPCS: 90471; 90656; 96127; 99397 ==

== ENCOUNTER 2025-08-24 09:02 | Outpatient (REF) | payer MEDICARE, SELFPAY ==
[2025-08-24 09:33] LABS: MANUAL DIFF FLAG NO
--- OUTSIDE RECORDS SUMMARY | 2025-08-24 09:50 | XMS_ITS | Patient Health Record ---
Author Organization [facility] Address [address] [place] [address] Care Team Providers Care Janitorial Assistant Name Role Phone Po Renuka HARPER Primary Care Provider Hollis Masterson [phone] Allergies Allergen (clinical drug ingredient) Drug/Non Drug [...] Problem Screening for malignant neoplasm of colon (750609018) Encounter for screening for malignant neoplasm of colon (Z12.11) Active confirmed Problem History of adenomatous polyp of colon (888310344) History of adenomatous polyp of colon (Z86.010) Active confirmed Problem Preprocedural examination (437057777305707) Preprocedural examination (Z01.818) Active confirmed Plan Of Treatment Future Test Test Name Order Date COLONOSCOPY 03/06/2015 COLONOSCOPY 06/27/2020 Next Appt Details Provider Name:Hollis Pinzon , 12/07/2025 09:40:00 AM, [address], [address], [place], [address], Insurance Providers Payer Name Payer Address Payer Phone Subscriber Number Group Number Insured Name Patient Relationship to Insured Coverage Start Date Coverage End Date [facility] [address] [facility] [place] [phone] [id number] RENEA SHAH Self - patient is the insured Medical (General) History Medical History History ICD Code Hypothyroidism Hyperlipidemia Colonoscopy 01/12/2003--neg. except for a hyperplastic polyp and internal hemorrhoids Denies [place],DM,CVA,Lung disease,renal dise ase Degenerative disease lumbosacral spine HTN Colonoscopy 05/2015 with removal of a sma ll tubular adneoma Surgical History Surgery Date(Month/Year) foot surgery tubal ligation shoulder surgery-right carpal tunnel release-right cholecystectomy
--- OUTSIDE RECORDS SUMMARY | 2025-08-24 09:50 | XMS_ITS | Patient Health Record ---
Author Organization [facility] Address [address] [place] [address] Care Team Providers Care Carroting Machine Offbearer Name Role Phone Renuka Leno Primary Care Provider Shad Butcher Unavailable [phone] Allergies Allergen (clinical drug ingredient) Drug/Non Drug [...] Problem Acquired hammer toe of left foot (266471943524 9103) Other hammer toe(s) (acquired), left foot (M20.42) Active confirmed Problem Pain in limb (21858501) Pain in unspecified foot (M79.673) Active confirmed [...] X ray : Foot, right 3V 03/02/2013 66353-Rlak Destruction, -12/28/2013 95262-Hhwj Destruction, 10-2508/09/2014 30867-Xfgo Destruction, -11/06/2014 06406-Bruf Destruction, 10-2501/17/2015 97320-Mzgb Destruction, 10-2504/09/2015 07929-Fean Destruction, 10-2506/13/2015 18206-Cdml Destruction, 10-2506/23/2011 30715-Cbvd Destruction, 10-2509/15/2011 80710-Futk Destruction, 10-2501/12/2012 34139-Zjkj Destruction, 10-2506/28/2012 10483-Fglo Destruction, 10-2509/29/2012 70197-Fyjr Destruction, 10-2510/25/2012 35441-Wllh Destruction, 10-2512/29/2012 69266- Debride <25 sq cm 08/16/2015 69477-Utfwhthoa, Toes 05/06/2019 L4386- Walking Boot 12/01/2012 Insurance Providers Payer Name Payer Address Payer Phone Subscriber Number Group Number Insured Name Patient Relationship to Insured Coverage Start Date Coverage End Date [employer] [address] [place] [address] [id number] Emani Magana Self - patient is the [...]
[2025-08-24 10:04] LABS: Hematocrit 39.5 % (37.0-47.0); Hemoglobin 12.8 g/dl (12.0-16.0); Imm Gran Abs Auto 0.03 X10*3/uL (0.00-0.03); Imm Gran Pct Auto 0.4 % (0.0-0.4); Lymphocytes Absolute Auto 1.8 X10*3/uL (1.2-4.9); Mean Corpuscular HGB Conc 32.4 g/dl (31.0-35.0); Mean Corpuscular Hemoglobin 29.3 pg (27.0-33.0); Mean Corpuscular Volume 90.4 fL (80.0-98.0); NRBC Abs Auto 0.000 X10*3/uL (0.0-0.012); NRBC Pct Auto 0.0 /100WBC (0.0-0.2); Platelet Count 239 X10*3/uL (160-400); Red Blood Count 4.37 X10*6/uL (4.20-5.50); White Blood Count 6.8 X10*3/uL (4.8-10.8)
[2025-08-24 10:51] LABS: Alanine Aminotransferase 23 U/L (0-31); Albumin Level 4.4 g/dL (3.5-5.0); Alkaline Phosphatase 89 U/L (39-117); Anion Gap 12 (12-20); Aspartate Amino Transferase 26 U/L (5-31); Blood Urea Nitrogen 15 mg/dL (9-16); Calcium 9.8 mg/dL (8.4-10.2); Carbon Dioxide 23 mmol/L (22-29); Chloride 111 mmol/L (96-108); Cholesterol 179 mg/dL (<200); Estimated Glomerular Filt Rate 56; HDL Cholesterol 40 mg/dL (>40); Potassium 4.3 mmol/L (3.3-5.1); Sodium 142 mmol/L (135-145); Total Protein 6.8 g/dL (6.5-8.0); Triglycerides 172 mg/dL (<150)
[2025-08-24 11:07] LABS: Folate 5.5 ng/mL (> or = 4.0); Vitamin B12 639 pg/mL (200-900)
[2025-08-24 11:08] LABS: Free T4 (Free Thyroxine) 1.54 ng/dL (0.71-1.85); Thyroid Stimulating Hormone 0.31 uIU/mL (0.32-4.0)
[2025-08-24 11:08] LABS: Appearance Urine Clear; Glucose Urine UA Negative (Negative); PH 5.5 (5.0-9.0); Specific Gravity - Urine 1.020 (1.005-1.025); UMIC TRIGGER UACC YES
[2025-08-24 11:14] LABS: UACC Culture Trigger YES
== END 2025-08-24 09:03 | disposition home or self-care (01) ==
LOC: HO.LAB 09:02
PROVIDERS: PCP Internal Medicine; Visit Provider Internal Medicine
DX: I10 Essential (primary) hypertension (principal); E78.00 Pure hypercholesterolemia, unspecified; R30.0 Dysuria; Z13.1 Encounter for screening for diabetes mellitus; Z13.21 Encounter for screening for nutritional disorder; R73.02 Impaired glucose tolerance (oral)
CPT/HCPCS: 36415; 80053; 80061; 81001; 81003; 82306; 82607; 82746; 83036; 84439; 84443; 85025; 87086